=== PATIENT | male | born 1950 | race Caucasian/White ===

== ENCOUNTER 2019-08-23 02:23 | Emergency (ER) | payer MEDICARE, MEDICAID ==
[~2019-08-23] VITALS: Ht 175.3 cm; Wt 57.7 kg
[~2019-08-23 02:23] MED LIST: ASPI-1071 PO; ATI0.5T PO; BUSP5TAB26 PO; CARB-13 PO; DIGO250T4 PO; DOCU100C40 PO; FLO0.4C PO; FOLI1TAB16 PO; GABA100C PO; GABA400C PO; HYDR-3972 PO; LIDO700A5 TP; MELA3TAB64 PO; METF-950 PO; MIRT-92 PO; MULT-1179 PO; PANT-47 PO; QUET25TA PO; THI100T PO
--- NOTE | 2019-08-23 02:43 | NUR ---
blood glucose 63, juice and sandwich provided.
[2019-08-23 09:56] VITALS: BP 150/98
== END 2019-08-23 09:59 | disposition home or self-care (01) ==
LOC: ER 02:24
DX: S06.0X0A Concussion without loss of consciousness, initial encounter (principal); S00.83XA Contusion of other part of head, initial encounter; G20 Parkinson's disease; I48.91 Unspecified atrial fibrillation; I10 Essential (primary) hypertension; J44.9 Chronic obstructive pulmonary disease, unspecified; K21.9 Gastro-esophageal reflux disease without esophagitis; E11.9 Type 2 diabetes mellitus without complications; F32.9 Major depressive disorder, single episode, unspecified; Z90.49 Acquired absence of other specified parts of digestive tract; Z98.890 Other specified postprocedural states; Z60.2 Problems related to living alone; Z79.82 Long term (current) use of aspirin; Z79.899 Other long term (current) drug therapy; W18.39XA Other fall on same level, initial encounter; Y93.89 Activity, other specified; Y92.003 Bedroom of unspecified non-institutional (private) residence as the place of occurrence of the external cause; Y99.8 Other external cause status
CPT/HCPCS: 70470; 70486; 72125; 82948; 93005; 99285

== ENCOUNTER 2019-10-04 15:57 | Emergency (ER) | payer MEDICARE, MEDICAID ==
[~2019-10-04] VITALS: Ht 175.3 cm; Wt 55.0 kg
[~2019-10-04 15:57] MED LIST changes: +MELA3TAB39 PO; -MELA3TAB64 PO
[2019-10-04 17:28] LABS: CLARITY,URINE CLEAR (Clear); COLOR,URINE YELLOW (Yellow); GLUCOSE, URINE NEGATIVE (Neg); KETONES,URINE NEGATIVE (Neg); LEUKOCYTE ESTERASE ,URINE NEGATIVE (Neg); NITRITES, URINE NEGATIVE (Neg); OCCULT BLOOD,URINE NEGATIVE (Neg); PH,URINE 5.5 (4.8-8.0); PROTEIN,URINE NEGATIVE (Neg); UROBILINOGEN,URINE 0.2 E.U/dL (0.2-1.0)
[2019-10-04 17:35] LABS: UA COLLECTION TYPE URINAL
[2019-10-04 18:25] LABS: BASOPHILS % (AUTO) 0.4 % (0-1); EOSINOPHILS # (AUTO) 0.2 X10'3 (0-0.9); EOSINOPHILS % (AUTO) 3.1 % (0-6); HEMATOCRIT 46.8 % (42.0-52.0); HEMOGLOBIN 15.4 g/dl (14.0-17.9); LYMPHOCYTES # (AUTO) 2.4 X10'3 (1.1-4.8); LYMPHOCYTES % (AUTO) 35.9 % (21-51); MEAN CORPUSCULAR HEMOGLOBIN 29.2 PG (27.0-31.0); MEAN CORPUSCULAR HGB CONC 32.8 g/dL (33.0-36.5); MEAN PLATELET VOLUME 8.8 FL (7.4-10.4); MONOCYTES # (AUTO) 0.6 X10'3 (0-0.9); MONOCYTES % (AUTO) 8.1 % (2-12); NEUTROPHILS # (AUTO) 3.6 X10'3 (1.8-7.7); NEUTROPHILS % (AUTO) 52.5 % (42-75); PLATELET COUNT 237 X10'3 (140-440); RED BLOOD COUNT 5.25 X10'6 (4.70-6.10); RED CELL DISTRIBUTION WIDTH 14.4 % (11.5-14.5); WHITE BLOOD COUNT 6.8 X10'3 (4.5-11.0)
[2019-10-04 18:31] LABS: ALANINE AMINOTRANSFERASE 26 U/L (12-78); ALBUMIN/GLOBULIN RATIO 0.9 (1.1-1.5); ALKALINE PHOSPHATASE 119 IU/L (46-116); ANION GAP 5 (8-16); ASPARTATE AMINO TRANSFERASE 31 U/L (10-37); BILIRUBIN,TOTAL 0.6 MG/DL (0.1-1.0); BLOOD UREA NITROGEN 31 MG/DL (7-18); BUN/CREATININE RATIO 27.7 (5.4-32.0); CALCIUM 10.3 MG/DL (8.5-10.1); CHLORIDE 102 MMOL/L (99-107); CREATININE 1.12 MG/DL (0.60-1.10); GLUCOSE 110 MG/DL (70-104); POTASSIUM 4.1 MMOL/L (3.5-5.1); SODIUM 143 MMOL/L (135-145); TOTAL PROTEIN 8.4 G/DL (6.4-8.2); eGFR 65 ML/MIN
--- NOTE | 2019-10-04 19:29 | NUR ---
SPOKE WITH CANDIS, CAREGIVER/[employer], STATING HE WAS UNDER THE IMPRESSION THAT THE PT WAS GOING TO BE SENT TO BEHAVIORAL HEALTH FLOOR "ISABEL, THE NEUROLOGIST, SET EVERYTHING UP". EXPLAINED TO CANDIS THAT THE PT ONLY TOLD US OF LEG WOUND AND THAT I WOULD TALK TO RICH JONES ABOUT POSSIBLE ADMISSION TO BEHAVIORAL HEALTH AND RICH WOULD CALL HIM.
--- NOTE | 2019-10-04 19:47 | NUR ---
CALLED BEHAVIORAL HEALTH, NO INFORMATION OR ADMISSION INFORMATION ON THIS PT WAS EVER SENT TO THEM
[2019-10-04 20:19] LABS: ETHANOL < 0.010 GM/DL (0.0-0.010)
[2019-10-04 20:38] LABS: URINE AMPHETAMINE SCREEN NEGATIVE (Neg); URINE BARBITUATE SCREEN NEGATIVE (Neg); URINE BENZODIAZEPINES SCREEN NEGATIVE (Neg); URINE CANNABINOID SCREEN NEGATIVE (Neg); URINE COCAINE SCREEN NEGATIVE (Neg); URINE METHADONE SCREEN NEGATIVE (Neg); URINE OPIATE SCREEN NEGATIVE (Neg); URINE PHENCYCLIDINE SCREEN NEGATIVE (Neg)
--- NOTE | 2019-10-04 21:16 | NUR ---
PT CAREGIVER STATES "I TOOK MY NIGHTTIME MEDS AND CAN'T DRIVE NOW". TOLD CAREGIVER WE CAN SEND PT IN TAXI
[2019-10-04 21:29] VITALS: BP 109/73
== END 2019-10-04 22:55 | disposition home or self-care (01) ==
LOC: ER 15:58
DX: S81.801A Unspecified open wound, right lower leg, initial encounter (principal); R60.0 Localized edema; R44.3 Hallucinations, unspecified; G20 Parkinson's disease; I48.91 Unspecified atrial fibrillation; I10 Essential (primary) hypertension; J44.9 Chronic obstructive pulmonary disease, unspecified; K21.9 Gastro-esophageal reflux disease without esophagitis; E11.9 Type 2 diabetes mellitus without complications; F32.9 Major depressive disorder, single episode, unspecified; Z90.49 Acquired absence of other specified parts of digestive tract; Z60.2 Problems related to living alone; Z79.82 Long term (current) use of aspirin; Z79.01 Long term (current) use of anticoagulants; Z79.899 Other long term (current) drug therapy; X58.XXXA Exposure to other specified factors, initial encounter; Y93.89 Activity, other specified; Y92.89 Other specified places as the place of occurrence of the external cause; Y99.8 Other external cause status
CPT/HCPCS: 36415; 70450; 80053; 80305; 80320; 81003; 85025; 93971; 99285

== ENCOUNTER 2019-10-20 17:15 | Inpatient (IN) | payer MEDICARE, MEDICAID ==
[~2019-10-20] VITALS: Ht 175.3 cm; Wt 53.3 kg
[2019-10-20 18:18] LABS: BASOPHILS % (AUTO) 0.2 % (0-1); EOSINOPHILS % (AUTO) 0.2 % (0-6); HEMATOCRIT 38.2 % (42.0-52.0); HEMOGLOBIN 12.6 g/dl (14.0-17.9); LYMPHOCYTES # (AUTO) 0.9 X10'3 (1.1-4.8); LYMPHOCYTES % (AUTO) 13.3 % (21-51); MEAN CORPUSCULAR HEMOGLOBIN 29.2 PG (27.0-31.0); MEAN CORPUSCULAR HGB CONC 32.9 g/dL (33.0-36.5); MEAN CORPUSCULAR VOLUME 88.9 FL (78-98); MEAN PLATELET VOLUME 8.7 FL (7.4-10.4); MONOCYTES # (AUTO) 0.7 X10'3 (0-0.9); MONOCYTES % (AUTO) 10.5 % (2-12); NEUTROPHILS # (AUTO) 5.4 X10'3 (1.8-7.7); NEUTROPHILS % (AUTO) 75.8 % (42-75); PLATELET COUNT 177 X10'3 (140-440); RED CELL DISTRIBUTION WIDTH 14.4 % (11.5-14.5); WHITE BLOOD COUNT 7.1 X10'3 (4.5-11.0)
[2019-10-20 18:44] LABS: ALANINE AMINOTRANSFERASE 54 U/L (12-78); ALBUMIN 3.3 G/DL (3.4-5.0); ALBUMIN/GLOBULIN RATIO 0.9 (1.1-1.5); ALKALINE PHOSPHATASE 92 IU/L (46-116); ANION GAP 10 (8-16); ASPARTATE AMINO TRANSFERASE 59 U/L (10-37); BILIRUBIN,TOTAL 1.5 MG/DL (0.1-1.0); BLOOD UREA NITROGEN 15 MG/DL (7-18); BUN/CREATININE RATIO 18.5 (5.4-32.0); CALCIUM 9.2 MG/DL (8.5-10.1); CHLORIDE 108 MMOL/L (99-107); CREATINE KINASE 902 U/L (39-308); CREATININE 0.81 MG/DL (0.60-1.10); GLUCOSE 119 MG/DL (70-104); POTASSIUM 3.1 MMOL/L (3.5-5.1); SODIUM 146 MMOL/L (135-145); TOTAL CARBON DIOXIDE 27.6 MMOL/L (24-32); TOTAL PROTEIN 6.9 G/DL (6.4-8.2); eGFR > 90 ML/MIN
[2019-10-20] MEDS ORDERED: normal saline 1000ML IV soln IVB ONE (19:15)
[2019-10-20] MEDS ORDERED: potassium Cl 20 mEq SR tablet PO STA (19:15)
[2019-10-20] MEDS ORDERED: CARB1TAB23 PO (19:22)
[2019-10-20] MEDS ORDERED: BUSP10TA11 PO (19:22)
[2019-10-20] MEDS ORDERED: BACL-11 PO (19:22)
[2019-10-20] MEDS ORDERED: FURO-149 PO (19:22)
[2019-10-20] MEDS ORDERED: QUET-1 PO (19:22)
[2019-10-20] MEDS ORDERED: TRAM50TA2 PO (19:22)
[2019-10-20] MEDS ORDERED: AMA100C PO (19:22)
[2019-10-20] MEDS ORDERED: DIGO125T PO (19:22)
[2019-10-20] MEDS ORDERED: PREG100C PO (19:22)
[2019-10-20] MEDS ORDERED: RISP0.5T74 PO (19:22)
--- NOTE | 2019-10-20 19:22 | NUR ---
COMPLETED MED RECONCILLIATION TO [facility] WITH EXTERNAL MED REC. PT ABLE TO HELP MINIMALLY-UNABLE TO GIVE EXACT DOSAGE/FREQUENCIES FOR MULTIPLE MEDS BUT CONFIRMED EXTERNAL MED REC AMOUNTS
[2019-10-20 19:35] LABS: CLARITY,URINE CLEAR (Clear); COLOR,URINE YELLOW (Yellow); GLUCOSE, URINE NEGATIVE (Neg); KETONES,URINE >=80 mg/dl (Neg); LEUKOCYTE ESTERASE ,URINE NEGATIVE (Neg); NITRITES, URINE NEGATIVE (Neg); OCCULT BLOOD,URINE NEGATIVE (Neg); PROTEIN,URINE TRACE mg/dl (Neg)
[2019-10-20 19:36] LABS: UA COLLECTION TYPE CLN CATCH MIDSTREAM
[2019-10-20 19:46] LABS: BACTERIA,URINE FEW /HPF (Neg); RBC,URINE 0-2 /HPF (0-2); SQUAMOUS EPITHELIAL CELL,UR FEW /LPF (FEW); WBC,URINE NONE SEEN /HPF (0-4)
[2019-10-20 20:19] LABS: TROPONIN I < 0.04 NG/ML (0.0-0.05)
[2019-10-20] MEDS: normal saline 1000ml 1,000 ML IV SCH (20:58)
[2019-10-20] MEDS ORDERED: ondansetron/PF 4mg/2ml inj IV PRN (21:00)
[2019-10-20] MEDS ORDERED: MESSAGE TO PHARMACY PO ONE (21:00)
[2019-10-20] MEDS ORDERED: glucagon, human recombinant 1mg kit SUBCUT PRN (21:00)
[2019-10-20] MEDS ORDERED: docusate sod 100mg capsule PO PRN (21:00)
[2019-10-20] MEDS ORDERED: dextrose 50%-water 50ml dispensing syringe IV PRN ×2 (21:00)
[2019-10-20] MEDS ORDERED: potassium Cl 20 mEq SR tablet PO PRN (21:00)
[2019-10-20] MEDS ORDERED: insulin Lispro (HumaLOG) vial - multi-dose SQ SCH (21:00)
[2019-10-20] MEDS ORDERED: potassium CL 10mEq/100ml bag 100 ML IV PRN ×2 (21:00)
[2019-10-20] MEDS ORDERED: magnesium 4gm in 100ml NS 100 ML IV PRN (21:00)
[2019-10-20] MEDS ORDERED: dextrose ORAL solution 15 GM/59 ML bottle PO PRN (21:00)
[2019-10-20] MEDS ORDERED: acetaminophen 325mg tablet PO PRN (21:00)
[2019-10-20] MEDS ORDERED: mag hydrox/Alum hydrox/simeth 30ml oral suspension PO PRN (21:00)
[2019-10-20] MEDS: insulin glargine (Lantus) pen - multi-dose SQ SCH (21:00)
[2019-10-20] MEDS ORDERED: magnesium 2GM in 50ml NS 50 ML IV PRN (21:00)
[2019-10-20] MEDS: tamsulosin 0.4mg capsule PO SCH (22:18)
[2019-10-20] MEDS: carbidoba-levodopa 25-100mg tablet PO SCH (22:20)
[2019-10-20 22:30] VITALS: BP 132/65
[2019-10-20] MEDS: baclofen 10mg tablet PO SCH (23:45)
[2019-10-21] VITALS (13 sets, daily range): BP systolic 97–142; BP diastolic 49–96
[2019-10-21] MEDS: heparin, porcine 5000 units/ml vial SQ SCH ×3 (00:41→16:18)
[2019-10-21 05:51] LABS: BASOPHILS % (AUTO) 0.3 % (0-1); EOSINOPHILS % (AUTO) 0.4 % (0-6); HEMATOCRIT 38.2 % (42.0-52.0); HEMOGLOBIN 12.5 g/dl (14.0-17.9); LYMPHOCYTES # (AUTO) 1.3 X10'3 (1.1-4.8); LYMPHOCYTES % (AUTO) 15.8 % (21-51); MEAN CORPUSCULAR HEMOGLOBIN 29.2 PG (27.0-31.0); MEAN CORPUSCULAR HGB CONC 32.7 g/dL (33.0-36.5); MEAN CORPUSCULAR VOLUME 89.3 FL (78-98); MEAN PLATELET VOLUME 9.2 FL (7.4-10.4); MONOCYTES # (AUTO) 0.8 X10'3 (0-0.9); MONOCYTES % (AUTO) 9.5 % (2-12); NEUTROPHILS # (AUTO) 6.2 X10'3 (1.8-7.7); PLATELET COUNT 171 X10'3 (140-440); RED BLOOD COUNT 4.28 X10'6 (4.70-6.10); RED CELL DISTRIBUTION WIDTH 14.5 % (11.5-14.5); WHITE BLOOD COUNT 8.4 X10'3 (4.5-11.0)
--- NOTE | 2019-10-21 06:10 | NUR ---
Patient in room YUNG 358. I have received report from ARCHANA BURNS and had the opportunity to ask questions and assume patient care.
[2019-10-21 06:42] LABS: ALANINE AMINOTRANSFERASE 13 U/L (12-78); ALBUMIN 3.1 G/DL (3.4-5.0); ALBUMIN/GLOBULIN RATIO 0.9 (1.1-1.5); ALKALINE PHOSPHATASE 89 IU/L (46-116); ANION GAP 15 (8-16); ASPARTATE AMINO TRANSFERASE 54 U/L (10-37); BILIRUBIN,TOTAL 1.6 MG/DL (0.1-1.0); BLOOD UREA NITROGEN 12 MG/DL (7-18); BUN/CREATININE RATIO 17.4 (5.4-32.0); CHLORIDE 111 MMOL/L (99-107); CREATININE 0.69 MG/DL (0.60-1.10); GLUCOSE 73 MG/DL (70-104); MAGNESIUM 1.8 MG/DL (1.5-2.4); POTASSIUM 3.5 MMOL/L (3.5-5.1); SODIUM 147 MMOL/L (135-145); TOTAL CARBON DIOXIDE 21.1 MMOL/L (24-32); TOTAL PROTEIN 6.6 G/DL (6.4-8.2); eGFR > 90 ML/MIN
[2019-10-21] MEDS: normal saline 1000ml 1,000 ML IV SCH ×2 (06:58→12:06)
[2019-10-21] MEDS: dextrose ORAL solution 15 GM/59 ML bottle PO PRN (07:07)
--- NOTE | 2019-10-21 07:25 | NUR ---
BLOOD GLUCOSE 69, PER PROTOCOL GAVE GLUCOSE SHOT, BLOOD SUGAR NOW 74. DR LAMAR AWAITING CALL BACK
[2019-10-21] MEDS ORDERED: metFORMIN 500mg tablet PO SCH (07:30)
[2019-10-21] MEDS: pantoprazole 40mg Tablet.DR PO SCH (07:49)
[2019-10-21] MEDS: aspirin 81mg tablet.DR PO SCH (07:50)
[2019-10-21] MEDS: busPIRone 5mg tablet PO SCH ×2 (07:50→20:19)
[2019-10-21] MEDS: folic acid 1mg tablet PO SCH (07:50)
[2019-10-21] MEDS: multivitamins, therapeutics tablet PO SCH (07:53)
[2019-10-21] MEDS: baclofen 10mg tablet PO SCH ×3 (07:53→23:59)
[2019-10-21] MEDS: quetiapine 100mg tablet PO SCH (07:53)
[2019-10-21] MEDS: furosemide 40mg tablet PO SCH ×2 (07:53→20:19)
[2019-10-21] MEDS: carbidoba-levodopa 25-100mg tablet PO SCH ×3 (07:53→21:00)
[2019-10-21] MEDS: digoxin 125mcg (0.125mg) tablet PO SCH (07:53)
[2019-10-21] MEDS: K and/or MAG REPLACEMENT MC SCH ×2 (08:00→20:00)
[2019-10-21] MEDS: risperiDONE 0.5mg tablet PO SCH ×2 (11:03→20:23)
[2019-10-21] MEDS: amantadine 100 MG capsule PO SCH ×2 (11:04→20:21)
--- NOTE | 2019-10-21 12:55 | NUR ---
Dr. Sheffield paged regarding pt in [place] sustaining HR in 140s per manager telecom. Awaiting call back.
[2019-10-21] MEDS ORDERED: diltiazem 5mg/ml 5ml inj. IV ONE (13:00)
[2019-10-21] MEDS: lactose-reduced food (Ensure Enlive) - 237ml bottle PO SCH ×2 (13:00→18:00)
--- NOTE | 2019-10-21 13:58 | NUR ---
Patient in room YUNG 358. I have received report from Enedelia MAGAÑA and had the opportunity to ask questions and assume patient care.
--- NOTE | 2019-10-21 14:15 | NUR ---
Patient confused, oriented to unit, vs 102/59, HR 98,100% on RA, RR 13, temp 97.9, delivered by Enedelia MAGAÑA by dominick, 2 person assist, NS @100, to start cardizem gtt.
--- NOTE | 2019-10-21 14:25 | NUR ---
GAVE REPORT TO ARCHANA CALLAWAY ON PCU AND TRANSFERRED PATIENT TO 3018 B, ALL BELONGINGS SENT WITH PATIENT INCLUDING iPHONE, GLASSES, CLOTHES AND MEDS.
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
[2019-10-21] MEDS: diltiazem-NS 100mg/100ml 100 ML IV SCH (15:01)
[2019-10-21] MEDS: cephalexin 500mg capsule PO SCH ×2 (16:12→23:59)
[2019-10-21] MEDS: dextrose 5%-1/4 normal saline 1,000 ML IV SCH (16:12)
[2019-10-21] MEDS: pregabalin 25mg capsule PO SCH ×2 (16:13→23:59)
--- NOTE | 2019-10-21 17:06 | NUR ---
Dr. Sheffield notified Dionisio Galvan. 4580B. Patient is impulsive and pulling at IV, and keeps pulling off tele leads. Can I get a sitter order? TY. Jason [phone]
--- NOTE | 2019-10-21 18:11 | NUR ---
Problems reprioritized. Patient report given, questions answered & plan of care reviewed with Kyra MAGAÑA. Addendum: 10/21/19 at 1814 by Jason Guan RN Was with Philipp MAGAÑA not Kyra
--- NOTE | 2019-10-21 18:11 | NUR ---
Patient in room PCU 3018B. I have received report from ARCHANA Gomez and had the opportunity to ask questions and assume patient care. Patient denies CP, SOB, n/v, and rated pain 0/10. Patient has a sitter in place
[2019-10-21] MEDS: tamsulosin 0.4mg capsule PO SCH (20:19)
[2019-10-21] MEDS: sulfamethoxazole/trimethoprim DS (800/160mg) tablet PO SCH (20:19)
[2019-10-21] MEDS: insulin glargine (Lantus) pen - multi-dose SQ SCH (21:00)
[2019-10-22] VITALS (11 sets, daily range): BP systolic 61–122; BP diastolic 33–62
[2019-10-22] MEDS: traMADol 50MG tablet PO PRN ×2 (00:44→07:14)
[2019-10-22] MEDS: dextrose 5%-1/4 normal saline 1,000 ML IV SCH (03:00)
[2019-10-22 06:09] LABS: BASOPHILS % (AUTO) 0.6 % (0-1); EOSINOPHILS # (AUTO) 0.2 X10'3 (0-0.9); EOSINOPHILS % (AUTO) 3.2 % (0-6); HEMATOCRIT 37.1 % (42.0-52.0); HEMOGLOBIN 12.5 g/dl (14.0-17.9); LYMPHOCYTES # (AUTO) 1.9 X10'3 (1.1-4.8); LYMPHOCYTES % (AUTO) 27.4 % (21-51); MEAN CORPUSCULAR HEMOGLOBIN 29.9 PG (27.0-31.0); MEAN CORPUSCULAR HGB CONC 33.8 g/dL (33.0-36.5); MEAN CORPUSCULAR VOLUME 88.5 FL (78-98); MEAN PLATELET VOLUME 9.1 FL (7.4-10.4); MONOCYTES # (AUTO) 0.6 X10'3 (0-0.9); NEUTROPHILS # (AUTO) 4.1 X10'3 (1.8-7.7); NEUTROPHILS % (AUTO) 59.8 % (42-75); PLATELET COUNT 180 X10'3 (140-440); RED BLOOD COUNT 4.19 X10'6 (4.70-6.10); RED CELL DISTRIBUTION WIDTH 14.5 % (11.5-14.5); WHITE BLOOD COUNT 6.8 X10'3 (4.5-11.0)
[2019-10-22 06:11] LABS: ALANINE AMINOTRANSFERASE 20 U/L (12-78); ALBUMIN 2.7 G/DL (3.4-5.0); ALBUMIN/GLOBULIN RATIO 0.8 (1.1-1.5); ALKALINE PHOSPHATASE 80 IU/L (46-116); ANION GAP 8 (8-16); ASPARTATE AMINO TRANSFERASE 34 U/L (10-37); BILIRUBIN,TOTAL 1.1 MG/DL (0.1-1.0); BLOOD UREA NITROGEN 10 MG/DL (7-18); BUN/CREATININE RATIO 14.7 (5.4-32.0); CHLORIDE 107 MMOL/L (99-107); CREATININE 0.68 MG/DL (0.60-1.10); GLUCOSE 114 MG/DL (70-104); MAGNESIUM 1.4 MG/DL (1.5-2.4); SODIUM 143 MMOL/L (135-145); TOTAL CARBON DIOXIDE 28.3 MMOL/L (24-32); eGFR > 90 ML/MIN
--- NOTE | 2019-10-22 06:12 | NUR ---
Patient in room PCU 3018. I have received report from Philipp MAGAÑA and had the opportunity to ask questions and assume patient care.
--- NOTE | 2019-10-22 06:14 | NUR ---
Problems reprioritized. Patient report given, questions answered & plan of care reviewed with ARCHANA Johnson. Patient stable at shift change
[2019-10-22 06:16] LABS: POTASSIUM 2.6 MMOL/L (3.5-5.1)
--- NOTE | 2019-10-22 06:27 | NUR ---
Sent a page to Dr Kevin sanchez PAGER ID: [phone] MESSAGE: Elizabeth MAGAÑA [phone] 3018B NEGRA Campos K 2.6, will replace per protocol. thanks!
[2019-10-22] MEDS: diltiazem-NS 100mg/100ml 100 ML IV SCH (06:30)
[2019-10-22] MEDS: potassium Cl 20 mEq SR tablet PO PRN ×3 (07:11→15:41)
[2019-10-22] MEDS: carbidoba-levodopa 25-100mg tablet PO SCH ×3 (07:11→21:26)
[2019-10-22] MEDS: amantadine 100 MG capsule PO SCH ×2 (07:11→19:29)
[2019-10-22] MEDS: baclofen 10mg tablet PO SCH ×2 (07:12→15:41)
[2019-10-22] MEDS: risperiDONE 0.5mg tablet PO SCH ×2 (07:12→20:31)
[2019-10-22] MEDS: cephalexin 500mg capsule PO SCH ×2 (07:12→15:42)
[2019-10-22] MEDS: busPIRone 5mg tablet PO SCH ×2 (07:12→19:29)
[2019-10-22] MEDS: quetiapine 100mg tablet PO SCH (07:12)
[2019-10-22] MEDS: sulfamethoxazole/trimethoprim DS (800/160mg) tablet PO SCH ×2 (07:12→19:29)
[2019-10-22] MEDS: pantoprazole 40mg Tablet.DR PO SCH (07:12)
[2019-10-22] MEDS: multivitamins, therapeutics tablet PO SCH (07:13)
[2019-10-22] MEDS: aspirin 81mg tablet.DR PO SCH (07:13)
[2019-10-22] MEDS: folic acid 1mg tablet PO SCH (07:13)
[2019-10-22] MEDS: furosemide 40mg tablet PO SCH ×2 (07:13→20:00)
[2019-10-22] MEDS: digoxin 125mcg (0.125mg) tablet PO SCH (07:13)
[2019-10-22] MEDS: pregabalin 25mg capsule PO SCH ×2 (07:14→15:41)
[2019-10-22] MEDS: heparin, porcine 5000 units/ml vial SQ SCH ×3 (07:15→15:41)
[2019-10-22] MEDS: K and/or MAG REPLACEMENT MC SCH ×2 (07:26→20:00)
[2019-10-22] MEDS: lactose-reduced food (Ensure Enlive) - 237ml bottle PO SCH ×4 (07:26→19:28)
--- NOTE | 2019-10-22 08:54 | NUR ---
Sent a page to Dr Yohannes sanchez PAGER ID: [phone] MESSAGE: Elizabeth MAGAÑA [phone] [id number] Loretta Galvan, SBP low 80s/high 70s, manual 86/40, HR 70s, Trendelenburged with small BP cuff on, please advise
--- NOTE | 2019-10-22 09:00 | NUR ---
Sent another page to Dr Sheffield PAGER ID: [phone] MESSAGE: Elizabeth MAGAÑA [phone] 3018B M Galvan, SBP 80s, on Cardizem gtt at 5mg/hr, do you want me to stop medication or decrease rate? please advise, thanks
--- NOTE | 2019-10-22 09:20 | NUR ---
Sent another page to Dr Sheffield PAGER ID: [phone] MESSAGE: Elizabeth MAGAÑA [phone] [id number], please call me, SBP 85-90, in Trendelenburg, do you want me to hold the Cardizem?
[2019-10-22] MEDS ORDERED: normal saline 500ml IV soln 1,000 ML IV ONE (09:25)
--- NOTE | 2019-10-22 09:30 | NUR ---
Spoke with Dr Sheffield via telephone, received orders to stop Cardizem gtt and to give a 500cc fluid bolus, will continue to monitor closely.
[2019-10-22] MEDS: normal saline 1000ml 1,000 ML IV SCH ×2 (11:34→22:55)
--- NOTE | 2019-10-22 12:51 | NUR ---
Sent a page to Dr Sheffield PAGER ID: [phone] MESSAGE: Elizabeth [id number] 3018B M Galvan, manual blood pressure 88/40, giving another 250 bolus per protocol, please advise, thanks Addendum: 10/22/19 at 1252 by Jen Cabral RN Spoke with Dr Sheffield via telephone, received orders to give a 1 Liter bolus instead of 250 ml. Will continue to monitor closely.
[2019-10-22] MEDS ORDERED: normal saline 1000ml 1,000 ML IV ONE (13:00)
--- NOTE | 2019-10-22 14:23 | NUR ---
Patient positive for MRSA in nares, gave patient education handout on MRSA, will continue to educate and closely monitor.
--- NOTE | 2019-10-22 14:30 | NUR ---
Sent Dr Sheffield a page regarding blood pressure and (+) MRSA in nares. Will continue to monitor the patient closely. PAGER ID: [phone] MESSAGE: Elizabeth MAGAÑA [phone] NEGRA Campos BP 100/60 after fluid bolus, pt also (+) for MRSA in nares, thank you!
--- NOTE | 2019-10-22 14:50 | NUR ---
F/u: Pt noted to have severe muscle weakness, severe muscle/fat wasting, and 0% PO since admit including ensure enlive ONS even w/ encouragement per RN. Pt hx receiving one meal/day from [facility] worker prior to admit. At this time pt meets severe malnutrition criteria; MD notified. Current wt is pt stated and no accurate wt hx as well as pt ALOC. RN reports pt has few teeth, gags on water, and would benefit from SOLAR SALES REPRESENTATIVE BSS. RD recommended SOLAR SALES REPRESENTATIVE BSS; MD notified. Pt not appropriate for written/verbal malnutrition ed at this given ALOC and possible Parkinson's dementia per MD note. Will continue to monitor for PO diet tolerance and advancement. Recommendations: 1) advance diet as medically indicated to regular; pending SOLAR SALES REPRESENTATIVE BSS 2) Ensure Enlive TID per MD 3) Encourage PO intake; monitor need for adaptive-gaspar/assistance with meals 4) routine bowel care PRN 5) Scaled wt for accuracy Addendum: 10/22/19 at [address] Amended: Links added.
--- NOTE | 2019-10-22 15:36 | NUR ---
Sent a page to Dr Yohannes sanchez PAGER ID: [phone] MESSAGE: Elizabeth MAGAÑA [phone] 3018B Loretta Galvan, are you aware that he is on SQ heparin 5,000 units TID, do you want me to give this? Plt 180, thanks! Addendum: 10/22/19 at 1559 by Jen Cabral RN Spoke to Dr Sheffield via telephone, he said 3 doses is fine but it is okay to change the SQ heparin to BID. Will continue to monitor closely.
--- NOTE | 2019-10-22 16:54 | NUR ---
Sent a page to Dr Yohannes sanchez PAGER ID: [phone] MESSAGE: Elizabeth MAGAÑA [phone] 3018B M Cole, no order for a sitter on this patient, can I put one in, impulsive and still confused. thanks!
--- NOTE | 2019-10-22 18:40 | NUR ---
Problems reprioritized. Patient report given, questions answered & plan of care reviewed with Lizandro.
--- NOTE | 2019-10-22 19:01 | NUR ---
Patient in room PCU 3018b. I have received report from ARCHANA Johnson and had the opportunity to ask questions and assume patient care. Patient asleep for bedside report but was easily woken. NS infusing at 50- will change to 125 mL/hr per provider order. On room air and oxygen saturation at 96%. Stable at this time.
[2019-10-22] MEDS: lactobacillus rhamnosus 10,000 MMU CELLS/CAPSULE PO SCH (19:29)
[2019-10-22] MEDS: mineral oil/petrolatum, white cream 113gm jar TP SCH (20:32)
[2019-10-22] MEDS: insulin glargine (Lantus) pen - multi-dose SQ SCH (21:00)
[2019-10-22] MEDS: tamsulosin 0.4mg capsule PO SCH (21:26)
[2019-10-23] VITALS (8 sets, daily range): BP systolic 90–115; BP diastolic 49–78
[2019-10-23] MEDS: cephalexin 500mg capsule PO SCH ×3 (00:38→16:15)
[2019-10-23] MEDS: baclofen 10mg tablet PO SCH ×3 (00:40→16:15)
[2019-10-23] MEDS: pregabalin 25mg capsule PO SCH ×4 (00:40→16:27)
[2019-10-23] MEDS: traMADol 50MG tablet PO PRN ×3 (01:09→20:06)
[2019-10-23] MEDS: normal saline 1000ml 1,000 ML IV SCH ×4 (01:13→21:20)
[2019-10-23 05:21] LABS: BASOPHILS % (AUTO) 0.3 % (0-1); EOSINOPHILS # (AUTO) 0.2 X10'3 (0-0.9); EOSINOPHILS % (AUTO) 3.2 % (0-6); HEMATOCRIT 36.4 % (42.0-52.0); HEMOGLOBIN 11.9 g/dl (14.0-17.9); LYMPHOCYTES # (AUTO) 1.5 X10'3 (1.1-4.8); LYMPHOCYTES % (AUTO) 21.6 % (21-51); MEAN CORPUSCULAR HEMOGLOBIN 29.2 PG (27.0-31.0); MEAN CORPUSCULAR HGB CONC 32.7 g/dL (33.0-36.5); MEAN CORPUSCULAR VOLUME 89.3 FL (78-98); MEAN PLATELET VOLUME 8.9 FL (7.4-10.4); MONOCYTES # (AUTO) 0.6 X10'3 (0-0.9); MONOCYTES % (AUTO) 8.9 % (2-12); NEUTROPHILS # (AUTO) 4.7 X10'3 (1.8-7.7); PLATELET COUNT 167 X10'3 (140-440); RED BLOOD COUNT 4.07 X10'6 (4.70-6.10); RED CELL DISTRIBUTION WIDTH 14.9 % (11.5-14.5); WHITE BLOOD COUNT 7.1 X10'3 (4.5-11.0)
[2019-10-23 06:05] LABS: ALANINE AMINOTRANSFERASE 14 U/L (12-78); ALBUMIN 2.4 G/DL (3.4-5.0); ALBUMIN/GLOBULIN RATIO 0.7 (1.1-1.5); ALKALINE PHOSPHATASE 85 IU/L (46-116); ANION GAP 5 (8-16); ASPARTATE AMINO TRANSFERASE 24 U/L (10-37); BILIRUBIN,TOTAL 0.6 MG/DL (0.1-1.0); BLOOD UREA NITROGEN 9 MG/DL (7-18); BUN/CREATININE RATIO 13.4 (5.4-32.0); CALCIUM 8.1 MG/DL (8.5-10.1); CHLORIDE 109 MMOL/L (99-107); CREATININE 0.67 MG/DL (0.60-1.10); GLUCOSE 98 MG/DL (70-104); MAGNESIUM 2.1 MG/DL (1.5-2.4); POTASSIUM 4.2 MMOL/L (3.5-5.1); SODIUM 143 MMOL/L (135-145); TOTAL CARBON DIOXIDE 28.6 MMOL/L (24-32); TOTAL PROTEIN 5.7 G/DL (6.4-8.2); eGFR > 90 ML/MIN
--- NOTE | 2019-10-23 06:10 | NUR ---
Problems reprioritized. Patient report given, questions answered & plan of care reviewed with ARCHANA Johnson.
--- NOTE | 2019-10-23 06:12 | NUR ---
Patient in room PCU 3018. I have received report from Lizandro MAGAÑA and had the opportunity to ask questions and assume patient care.
[2019-10-23] MEDS: dextrose ORAL solution 15 GM/59 ML bottle PO PRN (07:06)
--- NOTE | 2019-10-23 07:30 | NUR ---
Performed nursing BSS with patient, no difficulties swallowing pills with water, will continue to monitor closely.
[2019-10-23] MEDS: heparin, porcine 5000 units/ml vial SQ SCH ×2 (07:33→20:05)
[2019-10-23] MEDS: aspirin 81mg tablet.DR PO SCH (07:34)
[2019-10-23] MEDS: amantadine 100 MG capsule PO SCH ×2 (07:34→20:07)
[2019-10-23] MEDS: lactobacillus rhamnosus 10,000 MMU CELLS/CAPSULE PO SCH ×2 (07:34→20:08)
[2019-10-23] MEDS: digoxin 125mcg (0.125mg) tablet PO SCH (07:35)
[2019-10-23] MEDS: multivitamins, therapeutics tablet PO SCH (07:36)
[2019-10-23] MEDS: carbidoba-levodopa 25-100mg tablet PO SCH ×3 (07:36→21:20)
[2019-10-23] MEDS: pantoprazole 40mg Tablet.DR PO SCH (07:36)
[2019-10-23] MEDS: risperiDONE 0.5mg tablet PO SCH ×2 (07:37→20:26)
[2019-10-23] MEDS: folic acid 1mg tablet PO SCH (07:37)
[2019-10-23] MEDS: busPIRone 5mg tablet PO SCH ×2 (07:37→20:05)
[2019-10-23] MEDS: quetiapine 100mg tablet PO SCH (07:37)
[2019-10-23] MEDS: furosemide 40mg tablet PO SCH (07:37)
[2019-10-23] MEDS: mineral oil/petrolatum, white cream 113gm jar TP SCH ×2 (07:40→20:09)
[2019-10-23] MEDS: sulfamethoxazole/trimethoprim DS (800/160mg) tablet PO SCH ×2 (07:40→20:07)
[2019-10-23] MEDS: K and/or MAG REPLACEMENT MC SCH ×2 (08:00→20:00)
--- NOTE | 2019-10-23 08:37 | NUR ---
Spoke to the patients home caregiver, Narciso MaeHeshamjanice, via telephone and updated him on the patients plan of care. States he would like to be contacted when discharge is imminent. His phone number is [phone]
--- NOTE | 2019-10-23 09:12 | NUR ---
Problems reprioritized. Patient report given, questions answered & plan of care reviewed with Sadia MAGAÑA.
--- NOTE | 2019-10-23 09:12 | NUR ---
Patient in room PCU 3018. I have received report from ARCHANA Johnson and had the opportunity to ask questions and assume patient care late in shift. Nurse is being flexed off due to overstaffing. All am meds were given and charting complete. Will assess patient,.
--- NOTE | 2019-10-23 11:41 | NUR ---
RECOMMEND: 1. Daily bathing with no rinse skin cleanser. 2. Cream/Lotion to be applied to skin after bathing. 3. Theresa care Q shift and prn soiling followed by with Barrier Cream. 4. Wound care to BLE, apply silvadene to xeroform, then apply to legs, then cover with kerlix. To be changed daily.
[2019-10-23] MEDS: lactose-reduced food (Ensure Enlive) - 237ml bottle PO SCH ×2 (13:57→18:00)
--- NOTE | 2019-10-23 15:41 | NUR ---
PAGER ID: [phone] MESSAGE: Dr. Sheffield-Patient Dionisio Galvan in rm 18B, hypotensive BP are 80/44 MAP of 54. Repeat BP manually and got 90/50 MAP of 63. Will continue to monitor, Any new orders? Thank you, Luz RN [phone] [facility]
[2019-10-23] MEDS ORDERED: normal saline 1000ml 1,000 ML IV ONE (15:45)
--- NOTE | 2019-10-23 15:45 | NUR ---
Orders regarding hypotension per Dr. Sheffield are to Give patient 1L bolus and chart I&Os and make sure to have strict I&Os on this patient.
--- NOTE | 2019-10-23 18:38 | NUR ---
Problems reprioritized. Patient report given, questions answered & plan of care reviewed with ARCHANA Méndez.
--- NOTE | 2019-10-23 18:44 | NUR ---
Patient in room PCU 3018b. I have received report from ARCHANA Alcala and had the opportunity to ask questions and assume patient care. Patient awake for bedside report. On room air, 125 mL/hr NS infusing per provider order. Stable at this time. Will continue to monitor closely.
[2019-10-23] MEDS: tamsulosin 0.4mg capsule PO SCH (20:25)
[2019-10-23] MEDS: insulin glargine (Lantus) pen - multi-dose SQ SCH (21:00)
[2019-10-24] VITALS (15 sets, daily range): BP systolic 89–134; BP diastolic 46–99
[2019-10-24] MEDS: cephalexin 500mg capsule PO SCH ×4 (00:33→23:16)
[2019-10-24] MEDS: pregabalin 25mg capsule PO SCH ×4 (00:33→23:15)
[2019-10-24] MEDS: baclofen 10mg tablet PO SCH ×4 (00:33→23:16)
[2019-10-24] MEDS: normal saline 1000ml 1,000 ML IV SCH ×2 (05:29→22:55)
[2019-10-24 05:49] LABS: ALANINE AMINOTRANSFERASE 7 U/L (12-78); ALBUMIN 2.4 G/DL (3.4-5.0); ALBUMIN/GLOBULIN RATIO 0.7 (1.1-1.5); ALKALINE PHOSPHATASE 80 IU/L (46-116); ANION GAP 5 (8-16); ASPARTATE AMINO TRANSFERASE 24 U/L (10-37); BILIRUBIN,TOTAL 0.5 MG/DL (0.1-1.0); BLOOD UREA NITROGEN 9 MG/DL (7-18); BUN/CREATININE RATIO 14.5 (5.4-32.0); CALCIUM 8.5 MG/DL (8.5-10.1); CHLORIDE 107 MMOL/L (99-107); CREATININE 0.62 MG/DL (0.60-1.10); GLUCOSE 97 MG/DL (70-104); MAGNESIUM 1.7 MG/DL (1.5-2.4); SODIUM 141 MMOL/L (135-145); TOTAL CARBON DIOXIDE 28.6 MMOL/L (24-32); TOTAL PROTEIN 5.8 G/DL (6.4-8.2); eGFR > 90 ML/MIN
[2019-10-24 06:12] LABS: BASOPHILS % (AUTO) 0.3 % (0-1); EOSINOPHILS # (AUTO) 0.3 X10'3 (0-0.9); HEMATOCRIT 35.4 % (42.0-52.0); HEMOGLOBIN 11.7 g/dl (14.0-17.9); LYMPHOCYTES # (AUTO) 1.5 X10'3 (1.1-4.8); LYMPHOCYTES % (AUTO) 23.7 % (21-51); MEAN CORPUSCULAR HEMOGLOBIN 29.6 PG (27.0-31.0); MEAN CORPUSCULAR HGB CONC 33.1 g/dL (33.0-36.5); MEAN CORPUSCULAR VOLUME 89.4 FL (78-98); MEAN PLATELET VOLUME 9.1 FL (7.4-10.4); MONOCYTES # (AUTO) 0.6 X10'3 (0-0.9); MONOCYTES % (AUTO) 9.1 % (2-12); NEUTROPHILS % (AUTO) 62.9 % (42-75); PLATELET COUNT 185 X10'3 (140-440); RED BLOOD COUNT 3.97 X10'6 (4.70-6.10); RED CELL DISTRIBUTION WIDTH 14.6 % (11.5-14.5); WHITE BLOOD COUNT 6.4 X10'3 (4.5-11.0)
--- NOTE | 2019-10-24 06:30 | NUR ---
Problems reprioritized. Patient report given, questions answered & plan of care reviewed with ARCHANA CHÁVEZ.
--- NOTE | 2019-10-24 06:38 | NUR ---
Problems reprioritized. Patient report given, questions answered & plan of care reviewed with ARCHANA CHÁVEZ and ARCHANA ASHBY.
--- NOTE | 2019-10-24 06:46 | NUR ---
Patient in room PCU 3018. I have received report from Cortez MAGAÑA and had the opportunity to ask questions and assume patient care.
[2019-10-24] MEDS: dextrose ORAL solution 15 GM/59 ML bottle PO PRN (07:09)
[2019-10-24] MEDS: heparin, porcine 5000 units/ml vial SQ SCH ×2 (07:39→20:00)
[2019-10-24] MEDS: amantadine 100 MG capsule PO SCH ×2 (07:39→19:43)
[2019-10-24] MEDS: pantoprazole 40mg Tablet.DR PO SCH (07:39)
[2019-10-24] MEDS: busPIRone 5mg tablet PO SCH ×2 (07:39→19:44)
[2019-10-24] MEDS: lactobacillus rhamnosus 10,000 MMU CELLS/CAPSULE PO SCH ×2 (07:39→19:44)
[2019-10-24] MEDS: multivitamins, therapeutics tablet PO SCH (07:40)
[2019-10-24] MEDS: sulfamethoxazole/trimethoprim DS (800/160mg) tablet PO SCH ×2 (07:40→19:45)
[2019-10-24] MEDS: folic acid 1mg tablet PO SCH (07:41)
[2019-10-24] MEDS: digoxin 125mcg (0.125mg) tablet PO SCH (07:41)
[2019-10-24] MEDS: quetiapine 100mg tablet PO SCH (07:42)
[2019-10-24] MEDS: carbidoba-levodopa 25-100mg tablet PO SCH ×3 (07:42→21:29)
[2019-10-24] MEDS: risperiDONE 0.5mg tablet PO SCH ×2 (07:42→19:44)
[2019-10-24] MEDS: aspirin 81mg tablet.DR PO SCH (07:42)
[2019-10-24] MEDS: docusate sod 100mg capsule PO PRN (07:47)
[2019-10-24] MEDS: mineral oil/petrolatum, white cream 113gm jar TP SCH ×2 (07:51→20:00)
--- NOTE | 2019-10-24 07:55 | NUR ---
Blood sugar 56, glucose gel aministered and increased to 85, pt. currently eating. Pt. is asymptomatic. Will continue to monitor closely.
--- NOTE | 2019-10-24 07:55 | NUR ---
PAGER ID: [phone] MESSAGE: 3018B Dionisio Galvan HR up into the 130's since ambulating with therapy, Patient currently eating, asymptomatic. PO dig administered now. Chani MAGAÑA [phone]
[2019-10-24] MEDS: K and/or MAG REPLACEMENT MC SCH ×2 (08:00→20:00)
[2019-10-24] MEDS: silver sulfadiazine cream 50gm TP SCH (08:00)
[2019-10-24] MEDS: lactose-reduced food (Ensure Enlive) - 237ml bottle PO SCH ×3 (08:00→18:00)
--- NOTE | 2019-10-24 08:56 | NUR ---
PAGER ID: [phone] MESSAGE: Pt 9229b Dionisio Galvan converted to afib rate 130-140 bp 113/82, jv hamm dc 10/21 due to too low bp. would you like to start po? Chani MAGAÑA ext [phone]
[2019-10-24] MEDS ORDERED: amiodarone 150mg/dext, iso-os 100 ML IV ONE (09:35)
--- NOTE | 2019-10-24 09:52 | NUR ---
PAGER ID: [phone] MESSAGE: [id number] Dionisio Galvan - manual BP 58 NEGRA Wilde 260
--- NOTE | 2019-10-24 10:17 | NUR ---
MD aware of HR trends since ambulation. Patient was resting comfortably with he converted back to a-fib with rate 130's. BP on the lower side but map remains >60. MD is aware; Amio drip started per MD order. Will continue to monitor any changes.
[2019-10-24] MEDS: amiodarone/D5 360MG/200ML BAG 200 ML IV SCH ×3 (10:28→21:43)
[2019-10-24] MEDS: apixaban 5mg tablet PO SCH ×2 (11:43→19:44)
--- NOTE | 2019-10-24 14:10 | NUR ---
Confirmed receipt of fax to CT. Venous/arterial ultrasound being completed at this time.
--- NOTE | 2019-10-24 15:16 | NUR ---
Patient converted back to sinus rhythm with a rate in the 70s. Blood pressure is now stable at 113/58. Patient is resting comfortably with no apparent distress and awaiting CT.
--- NOTE | 2019-10-24 17:43 | NUR ---
Called CT several times to inquire about the CT scheduled for today and if Dr. Sheffield was reached. No answer. notified.
--- NOTE | 2019-10-24 17:46 | NUR ---
PAGER ID: [phone] MESSAGE: CT not completed for pt 3018b Dionisio Galvan. CT was waiting for a call from you NEGRA. Chani Villagomez RN extension [phone]
--- NOTE | 2019-10-24 17:53 | NUR ---
Agree with Orientee Chani Khan charting.
--- NOTE | 2019-10-24 18:31 | NUR ---
Dr. Sheffield called back stating that he talked to CT earlier and is unsure why it hasn't happened yet. Noc nurse notified.
--- NOTE | 2019-10-24 18:32 | NUR ---
Problems reprioritized. Patient report given, questions answered & plan of care reviewed with Cortez MAGAÑA.
--- NOTE | 2019-10-24 18:41 | NUR ---
Patient in room PCU 3018b. I have received report from ARCHANA Davis and ARCHANA Wlide and had the opportunity to ask questions and assume patient care. Patient awake for bedside report, sitting up in bed, and eating dinner at this time. Amiodarone infusing at 17 mL/hr per provider order. NS infusing at 125 mL/hr per provider order. Sating well at 100% room air. Will continue to monitor closely. Per day RN's CT is not responding to pages/calls for CT of ABD, PELVIS, CHEST; Dr. Sheffield aware. Just called to CT and no answer. Will attempt to page and call again.
[2019-10-24] MEDS ORDERED: iohexol 350MG/ML 100ml bottle IV ONE (19:54)
--- NOTE | 2019-10-24 20:00 | NUR ---
NON-ADMIN HEPARIN. PO ELIQUIS ORDERED; PATIENT IS HIGH RISK FOR FALLS/ BLEEDING.
--- NOTE | 2019-10-24 20:24 | NUR ---
Patient down to CT with ARCHANA Orourke and nurse aide.
[2019-10-24] MEDS: insulin glargine (Lantus) pen - multi-dose SQ SCH (21:00)
[2019-10-24] MEDS: tamsulosin 0.4mg capsule PO SCH (21:28)
[2019-10-24] MEDS: traMADol 50MG tablet PO PRN (21:29)
[2019-10-25] VITALS (9 sets, daily range): BP systolic 92–139; BP diastolic 43–85
[2019-10-25] MEDS: amiodarone/D5 360MG/200ML BAG 200 ML IV SCH ×3 (04:31→17:00)
[2019-10-25 05:09] LABS: BASOPHILS % (AUTO) 0.6 % (0-1); EOSINOPHILS # (AUTO) 0.4 X10'3 (0-0.9); EOSINOPHILS % (AUTO) 6.5 % (0-6); HEMATOCRIT 33.3 % (42.0-52.0); HEMOGLOBIN 10.9 g/dl (14.0-17.9); LYMPHOCYTES # (AUTO) 1.7 X10'3 (1.1-4.8); LYMPHOCYTES % (AUTO) 30.6 % (21-51); MEAN CORPUSCULAR HEMOGLOBIN 29.2 PG (27.0-31.0); MEAN CORPUSCULAR HGB CONC 32.8 g/dL (33.0-36.5); MEAN CORPUSCULAR VOLUME 89.1 FL (78-98); MEAN PLATELET VOLUME 8.5 FL (7.4-10.4); MONOCYTES # (AUTO) 0.6 X10'3 (0-0.9); MONOCYTES % (AUTO) 10.8 % (2-12); NEUTROPHILS # (AUTO) 2.8 X10'3 (1.8-7.7); NEUTROPHILS % (AUTO) 51.5 % (42-75); PLATELET COUNT 187 X10'3 (140-440); RED BLOOD COUNT 3.73 X10'6 (4.70-6.10); RED CELL DISTRIBUTION WIDTH 14.9 % (11.5-14.5); WHITE BLOOD COUNT 5.5 X10'3 (4.5-11.0)
[2019-10-25 05:23] LABS: ALANINE AMINOTRANSFERASE 11 U/L (12-78); ALBUMIN 2.3 G/DL (3.4-5.0); ALBUMIN/GLOBULIN RATIO 0.7 (1.1-1.5); ALKALINE PHOSPHATASE 80 IU/L (46-116); ANION GAP 4 (8-16); ASPARTATE AMINO TRANSFERASE 18 U/L (10-37); BILIRUBIN,TOTAL 0.4 MG/DL (0.1-1.0); BLOOD UREA NITROGEN 11 MG/DL (7-18); BUN/CREATININE RATIO 16.7 (5.4-32.0); CALCIUM 8.4 MG/DL (8.5-10.1); CHLORIDE 108 MMOL/L (99-107); CREATININE 0.66 MG/DL (0.60-1.10); GLUCOSE 94 MG/DL (70-104); MAGNESIUM 1.6 MG/DL (1.5-2.4); POTASSIUM 4.1 MMOL/L (3.5-5.1); SODIUM 140 MMOL/L (135-145); TOTAL CARBON DIOXIDE 27.6 MMOL/L (24-32); TOTAL PROTEIN 5.6 G/DL (6.4-8.2); eGFR > 90 ML/MIN
--- NOTE | 2019-10-25 06:39 | NUR ---
Problems reprioritized. Patient report given, questions answered & plan of care reviewed with ARCHANA SONI.
--- NOTE | 2019-10-25 06:53 | NUR ---
Patient in room PCU 3018. I have received report from Honey MAGAÑA and had the opportunity to ask questions and assume patient care.
[2019-10-25] MEDS: lactose-reduced food (Ensure Enlive) - 237ml bottle PO SCH ×3 (08:00→18:00)
[2019-10-25] MEDS: mineral oil/petrolatum, white cream 113gm jar TP SCH ×2 (08:00→20:50)
[2019-10-25] MEDS: silver sulfadiazine cream 50gm TP SCH (08:00)
[2019-10-25] MEDS: K and/or MAG REPLACEMENT MC SCH ×2 (08:00→20:00)
[2019-10-25] MEDS: amantadine 100 MG capsule PO SCH ×2 (08:38→20:49)
[2019-10-25] MEDS: folic acid 1mg tablet PO SCH (08:39)
[2019-10-25] MEDS: multivitamins, therapeutics tablet PO SCH (08:39)
[2019-10-25] MEDS: cephalexin 500mg capsule PO SCH ×2 (08:39→17:00)
[2019-10-25] MEDS: pregabalin 25mg capsule PO SCH ×2 (08:39→17:00)
[2019-10-25] MEDS: aspirin 81mg tablet.DR PO SCH (08:39)
[2019-10-25] MEDS: baclofen 10mg tablet PO SCH ×2 (08:40→17:00)
[2019-10-25] MEDS: digoxin 125mcg (0.125mg) tablet PO SCH (08:40)
[2019-10-25] MEDS: lactobacillus rhamnosus 10,000 MMU CELLS/CAPSULE PO SCH ×2 (08:41→20:49)
[2019-10-25] MEDS: carbidoba-levodopa 25-100mg tablet PO SCH ×3 (08:41→20:50)
[2019-10-25] MEDS: quetiapine 100mg tablet PO SCH (08:41)
[2019-10-25] MEDS: risperiDONE 0.5mg tablet PO SCH ×2 (08:41→20:55)
[2019-10-25] MEDS: busPIRone 5mg tablet PO SCH ×2 (08:42→20:49)
[2019-10-25] MEDS: sulfamethoxazole/trimethoprim DS (800/160mg) tablet PO SCH ×2 (08:42→20:49)
[2019-10-25] MEDS: pantoprazole 40mg Tablet.DR PO SCH (08:42)
[2019-10-25] MEDS: normal saline 1000ml 1,000 ML IV SCH ×2 (08:43→16:59)
--- NOTE | 2019-10-25 09:03 | NUR ---
3018B Loretta Johns. The pt has Eliquis and Heparin ordered do you want to d/c one ? Pt needs something for constipation as well. No BM since 10/19 Lisbeth [phone] Thank you
[2019-10-25] MEDS: apixaban 5mg tablet PO SCH ×2 (10:33→20:49)
--- NOTE | 2019-10-25 11:26 | NUR ---
Reassessment: Pt PO increased to 50-75% avg w/ 100% ONS TID past 3 days meeting needs. LBM 10/18 receiving colace; YUNIEL d/w RN regarding additional routine bowel care per MD approval. Will continue to monitor. Recommendations: 1) advance diet as medically indicated to regular; pending CORPORATE DEVELOPMENT OFFICER BSS 2) Ensure Enlive TIDWM 3) Encourage PO intake; monitor need for adaptive-gaspar/assistance with meals 4) routine bowel care 5) Weekly scaled wts for wt accuracy Addendum: 10/25/19 at [address] Amended: Links added.
[2019-10-25] MEDS: docusate sod 100mg capsule PO PRN (12:01)
--- NOTE | 2019-10-25 18:00 | NUR ---
Problems reprioritized. Patient report given, questions answered & plan of care reviewed with Jo MAGAÑA.
--- NOTE | 2019-10-25 18:10 | NUR ---
Amio gtt discontinued and switched over to PO.
--- NOTE | 2019-10-25 18:54 | NUR ---
Patient in room PCU 3018. I have received report from Lisbeth MAGAÑA and had the opportunity to ask questions and assume patient care.
[2019-10-25 19:13] LABS: URINE AMPHETAMINE SCREEN NEGATIVE (Neg); URINE BARBITUATE SCREEN NEGATIVE (Neg); URINE BENZODIAZEPINES SCREEN NEGATIVE (Neg); URINE CANNABINOID SCREEN NEGATIVE (Neg); URINE COCAINE SCREEN NEGATIVE (Neg); URINE METHADONE SCREEN NEGATIVE (Neg); URINE OPIATE SCREEN NEGATIVE (Neg); URINE PHENCYCLIDINE SCREEN NEGATIVE (Neg)
--- NOTE | 2019-10-25 20:00 | NUR ---
Inspector Elevators from [facility] came to see patient due to his 1799 hold. Outreach Professional said that they will not be putting patient on a 5150 hold because he is acting appropriate. Also tox screen was negative.
[2019-10-25] MEDS: docusate sod 100mg capsule PO SCH (20:49)
[2019-10-25] MEDS: polyethylene glycol 3350 17gm powd pack PO SCH (20:50)
[2019-10-25] MEDS: tamsulosin 0.4mg capsule PO SCH (20:50)
[2019-10-25] MEDS: amiodarone 200mg tablet PO SCH (20:50)
[2019-10-25] MEDS: insulin glargine (Lantus) pen - multi-dose SQ SCH (21:00)
--- NOTE | 2019-10-25 23:00 | NUR ---
Received instructions from pharmacy about how to prepare soap suds enema. Need to obtain enema bucket from materials, put liquid soap with a 1:3 ratio, diluting with water. One part soap and 3 parts water, for a total volume of at least 100mls and insert about 25mls at a time.
--- NOTE | 2019-10-25 23:15 | NUR ---
Patient says that he does not want enema at this time but he is willing to try it tomorrow if he has not had a BM but he just started with the Miralax tonight and states that he feels it starting to work. He also said it is normal for him to go about every 6 days. No distention or abdominal discomfort noted.
[2019-10-26] MEDS: traMADol 50MG tablet PO PRN (00:05)
[2019-10-26] MEDS: baclofen 10mg tablet PO SCH ×3 (00:06→16:04)
[2019-10-26] MEDS: cephalexin 500mg capsule PO SCH ×3 (00:06→16:04)
[2019-10-26] MEDS: pregabalin 25mg capsule PO SCH ×3 (00:06→16:04)
[2019-10-26] MEDS: normal saline 1000ml 1,000 ML IV SCH ×3 (00:23→17:53)
[2019-10-26 02:00] VITALS: BP 106/59
--- NOTE | 2019-10-26 06:21 | NUR ---
Problems reprioritized. Patient report given, questions answered & plan of care reviewed with Kyra MAGAÑA.
--- NOTE | 2019-10-26 06:30 | NUR ---
Patient in room PCU 3018. I have received report from Bethanie MAGAÑA and had the opportunity to ask questions and assume patient care.
[2019-10-26 07:00] VITALS: BP 126/65
[2019-10-26] MEDS: tamsulosin 0.4mg capsule PO SCH (07:44)
[2019-10-26] MEDS: quetiapine 100mg tablet PO SCH (07:44)
[2019-10-26] MEDS: aspirin 81mg tablet.DR PO SCH (07:44)
[2019-10-26] MEDS: risperiDONE 0.5mg tablet PO SCH ×2 (07:45→20:35)
[2019-10-26] MEDS: digoxin 125mcg (0.125mg) tablet PO SCH (07:45)
[2019-10-26] MEDS: docusate sod 100mg capsule PO SCH ×2 (07:45→20:34)
[2019-10-26] MEDS: lactobacillus rhamnosus 10,000 MMU CELLS/CAPSULE PO SCH ×2 (07:45→20:35)
[2019-10-26] MEDS: amiodarone 200mg tablet PO SCH ×2 (07:46→20:35)
[2019-10-26] MEDS: apixaban 5mg tablet PO SCH ×2 (07:46→20:35)
[2019-10-26] MEDS: sulfamethoxazole/trimethoprim DS (800/160mg) tablet PO SCH ×2 (07:46→20:34)
[2019-10-26] MEDS: pantoprazole 40mg Tablet.DR PO SCH (07:46)
[2019-10-26] MEDS: multivitamins, therapeutics tablet PO SCH (07:46)
[2019-10-26] MEDS: folic acid 1mg tablet PO SCH (07:46)
[2019-10-26] MEDS: amantadine 100 MG capsule PO SCH ×2 (07:47→20:36)
[2019-10-26] MEDS: busPIRone 5mg tablet PO SCH ×2 (07:47→20:34)
[2019-10-26] MEDS: silver sulfadiazine cream 50gm TP SCH (07:53)
[2019-10-26] MEDS: mineral oil/petrolatum, white cream 113gm jar TP SCH ×2 (07:53→21:17)
[2019-10-26] MEDS: carbidoba-levodopa 25-100mg tablet PO SCH ×3 (07:53→20:34)
[2019-10-26] MEDS: K and/or MAG REPLACEMENT MC SCH ×2 (08:00→20:00)
[2019-10-26] MEDS: lactose-reduced food (Ensure Enlive) - 237ml bottle PO SCH ×3 (08:00→17:53)
[2019-10-26 11:00] VITALS: BP 100/39
--- NOTE | 2019-10-26 12:15 | NUR ---
I attempted to have the patient transfer himself to the bed from the chair, he was very unbalanced standing and couldn't stand up straight without stumbling, he stumbled back into his chair.
[2019-10-26] MEDS ORDERED: bisacodyl 10mg suppository rectal RC STA (14:29)
[2019-10-26 15:00] VITALS: BP 111/60
[2019-10-26 18:00] VITALS: BP 117/87
--- NOTE | 2019-10-26 18:30 | NUR ---
Problems reprioritized. Patient report given, questions answered & plan of care reviewed with Prudence RN.
--- NOTE | 2019-10-26 19:08 | NUR ---
Patient in room PCU 3018. I have received report from Kyra MAGAÑA and had the opportunity to ask questions and assume patient care.
[2019-10-26] MEDS: polyethylene glycol 3350 17gm powd pack PO SCH (20:35)
[2019-10-26] MEDS: insulin glargine (Lantus) pen - multi-dose SQ SCH (21:00)
--- NOTE | 2019-10-26 21:10 | NUR ---
intervention not done on day shift Addendum: 10/26/19 at 2110 by Hortensia Knight RN Amended: Links added.
[2019-10-26 22:00] VITALS: BP 117/45
[2019-10-27] VITALS (7 sets, daily range): BP systolic 87–129; BP diastolic 41–62
[2019-10-27] MEDS: baclofen 10mg tablet PO SCH ×3 (00:18→16:26)
[2019-10-27] MEDS: cephalexin 500mg capsule PO SCH ×3 (00:18→16:26)
[2019-10-27] MEDS: pregabalin 25mg capsule PO SCH ×3 (00:18→16:26)
[2019-10-27] MEDS: normal saline 1000ml 1,000 ML IV SCH ×2 (02:51→16:28)
--- NOTE | 2019-10-27 06:30 | NUR ---
Patient in room PCU 3018B. I have received report from Hortensia MAGAÑA and had the opportunity to ask questions and assume patient care. Patient laying in bed, eyes closed, no signs of distress. Will continue to monitor.
--- NOTE | 2019-10-27 06:31 | NUR ---
Problems reprioritized. Patient report given, questions answered & plan of care reviewed with CORRY MAGAÑA.
[2019-10-27] MEDS: K and/or MAG REPLACEMENT MC SCH ×3 (08:00→21:50)
[2019-10-27] MEDS: amiodarone 200mg tablet PO SCH ×2 (08:23→20:14)
[2019-10-27] MEDS: folic acid 1mg tablet PO SCH (08:23)
[2019-10-27] MEDS: aspirin 81mg tablet.DR PO SCH (08:24)
[2019-10-27] MEDS: lactobacillus rhamnosus 10,000 MMU CELLS/CAPSULE PO SCH ×2 (08:24→20:14)
[2019-10-27] MEDS: digoxin 125mcg (0.125mg) tablet PO SCH (08:24)
[2019-10-27] MEDS: amantadine 100 MG capsule PO SCH ×2 (08:24→20:12)
[2019-10-27] MEDS: apixaban 5mg tablet PO SCH ×2 (08:24→20:14)
[2019-10-27] MEDS: multivitamins, therapeutics tablet PO SCH (08:24)
[2019-10-27] MEDS: docusate sod 100mg capsule PO SCH ×2 (08:25→20:13)
[2019-10-27] MEDS: quetiapine 100mg tablet PO SCH (08:25)
[2019-10-27] MEDS: pantoprazole 40mg Tablet.DR PO SCH (08:25)
[2019-10-27] MEDS: busPIRone 5mg tablet PO SCH ×2 (08:25→20:13)
[2019-10-27] MEDS: carbidoba-levodopa 25-100mg tablet PO SCH ×3 (08:25→20:14)
[2019-10-27] MEDS: sulfamethoxazole/trimethoprim DS (800/160mg) tablet PO SCH ×2 (08:25→20:14)
[2019-10-27] MEDS: lactose-reduced food (Ensure Enlive) - 237ml bottle PO SCH ×3 (08:26→18:00)
[2019-10-27] MEDS: traMADol 50MG tablet PO PRN ×2 (08:26→20:15)
[2019-10-27] MEDS: silver sulfadiazine cream 50gm TP SCH (08:49)
[2019-10-27] MEDS: mineral oil/petrolatum, white cream 113gm jar TP SCH ×2 (08:49→20:31)
[2019-10-27] MEDS: risperiDONE 0.5mg tablet PO SCH ×2 (10:33→20:11)
--- NOTE | 2019-10-27 18:22 | NUR ---
Problems reprioritized. Patient report given, questions answered & plan of care reviewed with Daryn RN.
[2019-10-27] MEDS: tamsulosin 0.4mg capsule PO SCH (20:12)
[2019-10-27] MEDS: polyethylene glycol 3350 17gm powd pack PO SCH (20:30)
[2019-10-27] MEDS: insulin glargine (Lantus) pen - multi-dose SQ SCH (21:00)
[2019-10-27] MEDS ORDERED: potassium CL 10mEq/100ml bag 100 ML IV PRN (21:50)
[2019-10-27] MEDS ORDERED: potassium Cl 20 mEq SR tablet PO PRN ×2 (21:50)
[2019-10-27] MEDS ORDERED: magnesium 4gm in 100ml NS 100 ML IV PRN (21:50)
[2019-10-27] MEDS ORDERED: magnesium Cl slow-release 64mg tablet PO PRN (21:50)
[2019-10-28] VITALS (8 sets, daily range): BP systolic 68–116; BP diastolic 38–68
[2019-10-28] MEDS: baclofen 10mg tablet PO SCH ×4 (00:29→23:55)
[2019-10-28] MEDS: pregabalin 25mg capsule PO SCH ×4 (00:29→23:55)
[2019-10-28] MEDS: traMADol 50MG tablet PO PRN ×2 (02:11→23:55)
[2019-10-28] MEDS: normal saline 1000ml 1,000 ML IV SCH ×2 (05:31→15:49)
[2019-10-28 06:06] LABS: BASOPHILS # (AUTO) 0.1 X10'3 (0-0.2); BASOPHILS % (AUTO) 1.7 % (0-1); EOSINOPHILS # (AUTO) 0.5 X10'3 (0-0.9); EOSINOPHILS % (AUTO) 6.7 % (0-6); HEMATOCRIT 35.5 % (42.0-52.0); HEMOGLOBIN 11.5 g/dl (14.0-17.9); LYMPHOCYTES # (AUTO) 2.2 X10'3 (1.1-4.8); LYMPHOCYTES % (AUTO) 31.7 % (21-51); MEAN CORPUSCULAR HEMOGLOBIN 29.2 PG (27.0-31.0); MEAN CORPUSCULAR HGB CONC 32.5 g/dL (33.0-36.5); MEAN CORPUSCULAR VOLUME 89.8 FL (78-98); MEAN PLATELET VOLUME 8.5 FL (7.4-10.4); MONOCYTES # (AUTO) 0.6 X10'3 (0-0.9); MONOCYTES % (AUTO) 8.6 % (2-12); NEUTROPHILS # (AUTO) 3.5 X10'3 (1.8-7.7); NEUTROPHILS % (AUTO) 51.3 % (42-75); PLATELET COUNT 261 X10'3 (140-440); RED BLOOD COUNT 3.95 X10'6 (4.70-6.10); RED CELL DISTRIBUTION WIDTH 15.1 % (11.5-14.5); WHITE BLOOD COUNT 6.8 X10'3 (4.5-11.0)
--- NOTE | 2019-10-28 06:27 | NUR ---
Problems reprioritized. Patient report given, questions answered & plan of care reviewed with Kyra MAGAÑA.
--- NOTE | 2019-10-28 06:35 | NUR ---
Patient in room PCU 3018. I have received report from ARCHANA Stearns and had the opportunity to ask questions and assume patient care.
[2019-10-28 06:36] LABS: ALANINE AMINOTRANSFERASE 16 U/L (12-78); ALBUMIN 2.6 G/DL (3.4-5.0); ALBUMIN/GLOBULIN RATIO 0.7 (1.1-1.5); ALKALINE PHOSPHATASE 89 IU/L (46-116); ANION GAP 8 (8-16); ASPARTATE AMINO TRANSFERASE 15 U/L (10-37); BILIRUBIN,TOTAL 0.5 MG/DL (0.1-1.0); BLOOD UREA NITROGEN 16 MG/DL (7-18); BUN/CREATININE RATIO 22.9 (5.4-32.0); CALCIUM 8.8 MG/DL (8.5-10.1); CHLORIDE 105 MMOL/L (99-107); GLUCOSE 89 MG/DL (70-104); MAGNESIUM 1.8 MG/DL (1.5-2.4); PHOSPHORUS 3.1 MG/DL (2.3-4.5); POTASSIUM 4.3 MMOL/L (3.5-5.1); SODIUM 141 MMOL/L (135-145); TOTAL CARBON DIOXIDE 28.1 MMOL/L (24-32); TOTAL PROTEIN 6.2 G/DL (6.4-8.2); eGFR > 90 ML/MIN
[2019-10-28] MEDS: amantadine 100 MG capsule PO SCH ×2 (07:21→20:14)
[2019-10-28] MEDS: multivitamins, therapeutics tablet PO SCH (07:22)
[2019-10-28] MEDS: digoxin 125mcg (0.125mg) tablet PO SCH (07:22)
[2019-10-28] MEDS: amiodarone 200mg tablet PO SCH ×2 (07:22→20:15)
[2019-10-28] MEDS: folic acid 1mg tablet PO SCH (07:22)
[2019-10-28] MEDS: risperiDONE 0.5mg tablet PO SCH ×2 (07:22→20:16)
[2019-10-28] MEDS: docusate sod 100mg capsule PO SCH ×2 (07:22→20:15)
[2019-10-28] MEDS: quetiapine 100mg tablet PO SCH (07:23)
[2019-10-28] MEDS: carbidoba-levodopa 25-100mg tablet PO SCH ×3 (07:23→20:16)
[2019-10-28] MEDS: apixaban 5mg tablet PO SCH ×2 (07:23→20:15)
[2019-10-28] MEDS: aspirin 81mg tablet.DR PO SCH (07:23)
[2019-10-28] MEDS: pantoprazole 40mg Tablet.DR PO SCH (07:23)
[2019-10-28] MEDS: lactobacillus rhamnosus 10,000 MMU CELLS/CAPSULE PO SCH ×2 (07:23→20:13)
[2019-10-28] MEDS: busPIRone 5mg tablet PO SCH ×2 (07:24→20:13)
[2019-10-28] MEDS: mineral oil/petrolatum, white cream 113gm jar TP SCH ×2 (08:00→20:20)
[2019-10-28] MEDS: K and/or MAG REPLACEMENT MC SCH ×4 (08:00→20:00)
[2019-10-28] MEDS: silver sulfadiazine cream 50gm TP SCH (08:00)
[2019-10-28] MEDS: lactose-reduced food (Ensure Enlive) - 237ml bottle PO SCH ×3 (08:00→18:00)
--- NOTE | 2019-10-28 14:01 | NUR ---
PAGER ID: [phone] MESSAGE: 3018B. pt. Dionisio Galvan pt. orthostatic VS supine: 101/48, HR 66, sittin/50, HR 86, standin/38, HR 98. please advise. Neda [phone]
[2019-10-28] MEDS: fludrocortisone acetate 0.1mg tablet PO SCH (15:45)
[2019-10-28] MEDS: midodrine tablet 2.5 MG TABLET PO SCH ×2 (15:45→23:56)
--- NOTE | 2019-10-28 16:43 | NUR ---
per Dr. Sheffield, soap suds enema given to pt.
--- NOTE | 2019-10-28 18:30 | NUR ---
Problems reprioritized. Patient report given, questions answered & plan of care reviewed with Kyra MAGAÑA.
--- NOTE | 2019-10-28 18:35 | NUR ---
Problems reprioritized. Patient report given, questions answered & plan of care reviewed with ARCHANA Stearns.
[2019-10-28] MEDS: tamsulosin 0.4mg capsule PO SCH (20:21)
[2019-10-28] MEDS: polyethylene glycol 3350 17gm powd pack PO SCH (20:21)
[2019-10-28] MEDS: insulin glargine (Lantus) pen - multi-dose SQ SCH (21:00)
[2019-10-29] VITALS (10 sets, daily range): BP systolic 82–138; BP diastolic 46–69
--- NOTE | 2019-10-29 06:00 | NUR ---
Patient in room PCU 3018. I have received report from Daryn MAGAÑA and had the opportunity to ask questions and assume patient care.
[2019-10-29 06:01] LABS: BASOPHILS # (AUTO) 0.1 X10'3 (0-0.2); BASOPHILS % (AUTO) 0.9 % (0-1); EOSINOPHILS # (AUTO) 0.5 X10'3 (0-0.9); EOSINOPHILS % (AUTO) 7.3 % (0-6); HEMOGLOBIN 10.9 g/dl (14.0-17.9); LYMPHOCYTES # (AUTO) 2.4 X10'3 (1.1-4.8); LYMPHOCYTES % (AUTO) 35.4 % (21-51); MEAN CORPUSCULAR HEMOGLOBIN 29.4 PG (27.0-31.0); MEAN CORPUSCULAR HGB CONC 33.1 g/dL (33.0-36.5); MEAN CORPUSCULAR VOLUME 88.8 FL (78-98); MEAN PLATELET VOLUME 8.4 FL (7.4-10.4); MONOCYTES # (AUTO) 0.7 X10'3 (0-0.9); MONOCYTES % (AUTO) 10.2 % (2-12); NEUTROPHILS # (AUTO) 3.1 X10'3 (1.8-7.7); NEUTROPHILS % (AUTO) 46.2 % (42-75); PLATELET COUNT 279 X10'3 (140-440); RED BLOOD COUNT 3.71 X10'6 (4.70-6.10); RED CELL DISTRIBUTION WIDTH 15.1 % (11.5-14.5); WHITE BLOOD COUNT 6.7 X10'3 (4.5-11.0)
[2019-10-29 06:22] LABS: ALANINE AMINOTRANSFERASE 12 U/L (12-78); ALBUMIN 2.6 G/DL (3.4-5.0); ALBUMIN/GLOBULIN RATIO 0.7 (1.1-1.5); ALKALINE PHOSPHATASE 92 IU/L (46-116); ANION GAP 7 (8-16); ASPARTATE AMINO TRANSFERASE 18 U/L (10-37); BILIRUBIN,TOTAL 0.5 MG/DL (0.1-1.0); BLOOD UREA NITROGEN 15 MG/DL (7-18); BUN/CREATININE RATIO 20.5 (5.4-32.0); CALCIUM 8.6 MG/DL (8.5-10.1); CHLORIDE 107 MMOL/L (99-107); CREATININE 0.73 MG/DL (0.60-1.10); GLUCOSE 82 MG/DL (70-104); MAGNESIUM 1.9 MG/DL (1.5-2.4); PHOSPHORUS 3.4 MG/DL (2.3-4.5); POTASSIUM 3.7 MMOL/L (3.5-5.1); SODIUM 142 MMOL/L (135-145); TOTAL CARBON DIOXIDE 28.3 MMOL/L (24-32); TOTAL PROTEIN 6.1 G/DL (6.4-8.2); eGFR > 90 ML/MIN
--- NOTE | 2019-10-29 06:42 | NUR ---
Problems reprioritized. Patient report given, questions answered & plan of care reviewed with Lisha MAGAÑA.
--- NOTE | 2019-10-29 07:32 | NUR ---
Patient in room PCU 3018. I have received report from Daryn MAGAÑA and had the opportunity to ask questions and assume patient care. Patient awake at this time, offers no complaints, urinal dumped, will continue to monitor.
[2019-10-29] MEDS: lactose-reduced food (Ensure Enlive) - 237ml bottle PO SCH ×3 (08:00→18:00)
[2019-10-29] MEDS: K and/or MAG REPLACEMENT MC SCH ×4 (08:00→19:34)
[2019-10-29] MEDS: silver sulfadiazine cream 50gm TP SCH (08:00)
[2019-10-29] MEDS: normal saline 1000ml 1,000 ML IV SCH ×2 (08:11→21:31)
[2019-10-29] MEDS: lactobacillus rhamnosus 10,000 MMU CELLS/CAPSULE PO SCH ×2 (08:38→19:44)
[2019-10-29] MEDS: pantoprazole 40mg Tablet.DR PO SCH (08:38)
[2019-10-29] MEDS: docusate sod 100mg capsule PO SCH ×2 (08:38→19:44)
[2019-10-29] MEDS: amiodarone 200mg tablet PO SCH ×2 (08:38→19:44)
[2019-10-29] MEDS: busPIRone 5mg tablet PO SCH ×2 (08:38→19:43)
[2019-10-29] MEDS: aspirin 81mg tablet.DR PO SCH (08:39)
[2019-10-29] MEDS: digoxin 125mcg (0.125mg) tablet PO SCH (08:39)
[2019-10-29] MEDS: folic acid 1mg tablet PO SCH (08:39)
[2019-10-29] MEDS: apixaban 5mg tablet PO SCH ×2 (08:39→19:44)
[2019-10-29] MEDS: pregabalin 25mg capsule PO SCH ×3 (08:40→23:29)
[2019-10-29] MEDS: risperiDONE 0.5mg tablet PO SCH ×2 (08:40→19:44)
[2019-10-29] MEDS: baclofen 10mg tablet PO SCH ×3 (08:40→23:26)
[2019-10-29] MEDS: midodrine tablet 2.5 MG TABLET PO SCH ×3 (08:40→23:26)
[2019-10-29] MEDS: quetiapine 100mg tablet PO SCH (08:41)
[2019-10-29] MEDS: carbidoba-levodopa 25-100mg tablet PO SCH ×3 (08:41→21:09)
[2019-10-29] MEDS: multivitamins, therapeutics tablet PO SCH (08:42)
[2019-10-29] MEDS: amantadine 100 MG capsule PO SCH ×2 (08:42→19:44)
[2019-10-29] MEDS: fludrocortisone acetate 0.1mg tablet PO SCH (08:43)
--- NOTE | 2019-10-29 13:25 | NUR ---
Reassessment: Pt PO continues to improve to 75-100% avg recent meals and 75% ensure enlive TIDWM meeting needs. [facility] 10/25. No nutrition concerns at this time. Will continue to monitor. Recommendations: 1) advance diet as medically indicated to regular; pending BUS BOY BSS 2) Ensure Enlive TIDWM 3) Encourage PO intake; monitor need for adaptive-gaspar/assistance with meals 4) routine bowel care 5) Weekly scaled wts for wt accuracy Addendum: 10/29/19 at [address] Amended: Links added.
[2019-10-29] MEDS ORDERED: mineral oil 133ml enema RC PRN (15:00)
[2019-10-29] MEDS: mineral oil/petrolatum, white cream 113gm jar TP SCH ×2 (17:33→19:44)
[2019-10-29] MEDS: traMADol 50MG tablet PO PRN (19:04)
[2019-10-29] MEDS: lactulose 20gm/30ml cup PO SCH (19:43)
[2019-10-29] MEDS: insulin glargine (Lantus) pen - multi-dose SQ SCH (21:00)
[2019-10-29] MEDS: tamsulosin 0.4mg capsule PO SCH (21:09)
[2019-10-29] MEDS: polyethylene glycol 3350 17gm powd pack PO SCH (21:09)
[2019-10-30] VITALS (7 sets, daily range): BP systolic 89–121; BP diastolic 46–93
[2019-10-30] MEDS: lactulose 20gm/30ml cup PO SCH ×4 (02:32→14:00)
--- NOTE | 2019-10-30 06:00 | NUR ---
Patient in room U 3018. I have received report from Joshua MAGAÑA and had the opportunity to ask questions and assume patient care. Patient awake and oriented.
--- NOTE | 2019-10-30 06:19 | NUR ---
Problems reprioritized. Patient report given, questions answered & plan of care reviewed with Halie. Addendum: 10/30/19 at 0620 by Julian Elizondo RN Amended: Links added.
--- NOTE | 2019-10-30 06:27 | NUR ---
Patient in room PCU 3018. I have received report from Joshua MAGAÑA and had the opportunity to ask questions and assume patient care. Patient awake and oriented at this time, was getting on a bedpan to try and have a bowel movement, offers no complaints, will continue to monitor.
[2019-10-30] MEDS: lactose-reduced food (Ensure Enlive) - 237ml bottle PO SCH ×3 (08:00→18:00)
[2019-10-30] MEDS: K and/or MAG REPLACEMENT MC SCH ×4 (08:00→20:00)
[2019-10-30] MEDS: mineral oil/petrolatum, white cream 113gm jar TP SCH ×2 (08:00→20:00)
[2019-10-30] MEDS: silver sulfadiazine cream 50gm TP SCH (08:00)
[2019-10-30] MEDS: pantoprazole 40mg Tablet.DR PO SCH (10:09)
[2019-10-30] MEDS: lactobacillus rhamnosus 10,000 MMU CELLS/CAPSULE PO SCH ×2 (10:10→21:08)
[2019-10-30] MEDS: busPIRone 5mg tablet PO SCH ×2 (10:10→21:08)
[2019-10-30] MEDS: amiodarone 200mg tablet PO SCH ×2 (10:10→21:09)
[2019-10-30] MEDS: docusate sod 100mg capsule PO SCH ×2 (10:10→21:09)
[2019-10-30] MEDS: folic acid 1mg tablet PO SCH (10:11)
[2019-10-30] MEDS: aspirin 81mg tablet.DR PO SCH (10:11)
[2019-10-30] MEDS: apixaban 5mg tablet PO SCH ×2 (10:11→21:09)
[2019-10-30] MEDS: baclofen 10mg tablet PO SCH ×2 (10:12→16:04)
[2019-10-30] MEDS: digoxin 125mcg (0.125mg) tablet PO SCH (10:12)
[2019-10-30] MEDS: midodrine tablet 2.5 MG TABLET PO SCH ×2 (10:13→16:04)
[2019-10-30] MEDS: pregabalin 25mg capsule PO SCH ×2 (10:13→16:04)
[2019-10-30] MEDS: carbidoba-levodopa 25-100mg tablet PO SCH ×3 (10:14→21:09)
[2019-10-30] MEDS: risperiDONE 0.5mg tablet PO SCH ×2 (10:14→21:09)
[2019-10-30] MEDS: amantadine 100 MG capsule PO SCH ×2 (10:14→21:08)
[2019-10-30] MEDS: quetiapine 100mg tablet PO SCH (10:14)
[2019-10-30] MEDS: fludrocortisone acetate 0.1mg tablet PO SCH (10:15)
[2019-10-30] MEDS: multivitamins, therapeutics tablet PO SCH (10:15)
[2019-10-30] MEDS: traMADol 50MG tablet PO PRN (10:37)
[2019-10-30] MEDS: normal saline 1000ml 1,000 ML IV SCH (12:28)
--- NOTE | 2019-10-30 14:30 | NUR ---
I agree with ARCHANA Ambrose's physical assessment.
--- NOTE | 2019-10-30 14:30 | NUR ---
[place]rientee documentation: I have reviewed and agree with interventions, assessments performed and documented by Veronica MAGAÑA. [place] Medication Administration: For this medication-pass time frame, medication were reviewed, dispensed, administered and documented per hospital policy by Veronica MAGAÑA .
--- NOTE | 2019-10-30 14:31 | NUR ---
Problems reprioritized. Patient report given, questions answered & plan of care reviewed with Adilia RN. Patient alert and awake at this time, offers no complaints, IV fluids running per order.
--- NOTE | 2019-10-30 18:00 | NUR ---
Problems reprioritized. Patient report given, questions answered & plan of care reviewed with ARCHANA Marcial.
[2019-10-30] MEDS: insulin glargine (Lantus) pen - multi-dose SQ SCH (21:00)
[2019-10-30] MEDS: polyethylene glycol 3350 17gm powd pack PO SCH (21:00)
[2019-10-30] MEDS: tamsulosin 0.4mg capsule PO SCH (21:09)
[2019-10-31] VITALS (9 sets, daily range): BP systolic 88–128; BP diastolic 41–65
[2019-10-31] MEDS: midodrine tablet 2.5 MG TABLET PO SCH ×4 (00:29→23:33)
[2019-10-31] MEDS: baclofen 10mg tablet PO SCH ×4 (00:30→23:33)
[2019-10-31] MEDS: pregabalin 25mg capsule PO SCH ×4 (00:30→23:33)
[2019-10-31] MEDS: traMADol 50MG tablet PO PRN ×4 (00:37→22:06)
[2019-10-31] MEDS: multivitamins, therapeutics tablet PO SCH (07:53)
[2019-10-31] MEDS: carbidoba-levodopa 25-100mg tablet PO SCH ×3 (07:54→21:58)
[2019-10-31] MEDS: apixaban 5mg tablet PO SCH ×2 (07:54→20:31)
[2019-10-31] MEDS: docusate sod 100mg capsule PO SCH ×2 (07:54→20:30)
[2019-10-31] MEDS: lactobacillus rhamnosus 10,000 MMU CELLS/CAPSULE PO SCH ×2 (07:54→20:31)
[2019-10-31] MEDS: quetiapine 100mg tablet PO SCH (07:54)
[2019-10-31] MEDS: busPIRone 5mg tablet PO SCH ×2 (07:54→20:30)
[2019-10-31] MEDS: digoxin 125mcg (0.125mg) tablet PO SCH (07:55)
[2019-10-31] MEDS: folic acid 1mg tablet PO SCH (07:55)
[2019-10-31] MEDS: risperiDONE 0.5mg tablet PO SCH ×2 (07:56→20:31)
[2019-10-31] MEDS: fludrocortisone acetate 0.1mg tablet PO SCH (07:56)
[2019-10-31] MEDS: pantoprazole 40mg Tablet.DR PO SCH (07:56)
[2019-10-31] MEDS: amiodarone 200mg tablet PO SCH ×2 (07:57→20:30)
[2019-10-31] MEDS: aspirin 81mg tablet.DR PO SCH (07:57)
[2019-10-31] MEDS: amantadine 100 MG capsule PO SCH ×2 (07:57→20:31)
[2019-10-31] MEDS: lactulose 20gm/30ml cup PO SCH (07:57)
[2019-10-31] MEDS: K and/or MAG REPLACEMENT MC SCH ×3 (07:58→20:00)
[2019-10-31] MEDS: mineral oil/petrolatum, white cream 113gm jar TP SCH ×2 (07:58→20:31)
[2019-10-31] MEDS: normal saline 1000ml 1,000 ML IV SCH (08:07)
[2019-10-31] MEDS: lactose-reduced food (Ensure Enlive) - 237ml bottle PO SCH ×3 (08:07→17:59)
--- NOTE | 2019-10-31 18:36 | NUR ---
Problems reprioritized. Patient report given, questions answered & plan of care reviewed with ARCHANA Lewis.
[2019-10-31] MEDS: polyethylene glycol 3350 17gm powd pack PO SCH (21:00)
[2019-10-31] MEDS: insulin glargine (Lantus) pen - multi-dose SQ SCH (21:00)
[2019-10-31] MEDS: tamsulosin 0.4mg capsule PO SCH (21:58)
[2019-11-01 02:00] VITALS: BP 106/53
[2019-11-01] MEDS: normal saline 1000ml 1,000 ML IV SCH ×2 (04:00→17:23)
[2019-11-01 05:13] LABS: BASOPHILS # (AUTO) 0.1 X10'3 (0-0.2); BASOPHILS % (AUTO) 0.7 % (0-1); EOSINOPHILS # (AUTO) 0.4 X10'3 (0-0.9); EOSINOPHILS % (AUTO) 4.4 % (0-6); HEMATOCRIT 36.5 % (42.0-52.0); HEMOGLOBIN 11.9 g/dl (14.0-17.9); LYMPHOCYTES # (AUTO) 3.2 X10'3 (1.1-4.8); LYMPHOCYTES % (AUTO) 34.7 % (21-51); MEAN CORPUSCULAR HEMOGLOBIN 29.8 PG (27.0-31.0); MEAN CORPUSCULAR HGB CONC 32.6 g/dL (33.0-36.5); MEAN CORPUSCULAR VOLUME 91.5 FL (78-98); MEAN PLATELET VOLUME 8.1 FL (7.4-10.4); MONOCYTES # (AUTO) 0.7 X10'3 (0-0.9); MONOCYTES % (AUTO) 7.7 % (2-12); NEUTROPHILS # (AUTO) 4.9 X10'3 (1.8-7.7); NEUTROPHILS % (AUTO) 52.5 % (42-75); PLATELET COUNT 324 X10'3 (140-440); RED BLOOD COUNT 3.98 X10'6 (4.70-6.10); RED CELL DISTRIBUTION WIDTH 15.3 % (11.5-14.5); WHITE BLOOD COUNT 9.3 X10'3 (4.5-11.0)
[2019-11-01 05:31] LABS: ALANINE AMINOTRANSFERASE 13 U/L (12-78); ALBUMIN 3.1 G/DL (3.4-5.0); ALBUMIN/GLOBULIN RATIO 0.8 (1.1-1.5); ALKALINE PHOSPHATASE 124 IU/L (46-116); ANION GAP 2 (8-16); ASPARTATE AMINO TRANSFERASE 28 U/L (10-37); BILIRUBIN,TOTAL 0.5 MG/DL (0.1-1.0); BLOOD UREA NITROGEN 15 MG/DL (7-18); BUN/CREATININE RATIO 19.2 (5.4-32.0); CALCIUM 9.4 MG/DL (8.5-10.1); CHLORIDE 106 MMOL/L (99-107); CREATININE 0.78 MG/DL (0.60-1.10); GLUCOSE 94 MG/DL (70-104); MAGNESIUM 1.9 MG/DL (1.5-2.4); PHOSPHORUS 3.3 MG/DL (2.3-4.5); POTASSIUM 3.6 MMOL/L (3.5-5.1); SODIUM 140 MMOL/L (135-145); TOTAL CARBON DIOXIDE 32.1 MMOL/L (24-32); TOTAL PROTEIN 7.1 G/DL (6.4-8.2); eGFR > 90 ML/MIN
--- NOTE | 2019-11-01 06:20 | NUR ---
Problems reprioritized. Patient report given, questions answered & plan of care reviewed with CHRISTOPHER MAGAÑA. Addendum: 11/01/19 at 0621 by Julian Elizondo RN Amended: Links added.
--- NOTE | 2019-11-01 06:41 | NUR ---
Patient in room U 3018. I have received report from ARCHANA Lewis and had the opportunity to ask questions and assume patient care. Patient awake in bed and in no acute distress.
[2019-11-01 07:00] VITALS: BP 92/59
[2019-11-01] MEDS: lactulose 20gm/30ml cup PO SCH (07:41)
[2019-11-01] MEDS: risperiDONE 0.5mg tablet PO SCH ×2 (07:42→20:33)
[2019-11-01] MEDS: carbidoba-levodopa 25-100mg tablet PO SCH ×3 (07:42→20:33)
[2019-11-01] MEDS: busPIRone 5mg tablet PO SCH ×2 (07:43→20:33)
[2019-11-01] MEDS: apixaban 5mg tablet PO SCH ×2 (07:43→20:33)
[2019-11-01] MEDS: multivitamins, therapeutics tablet PO SCH (07:44)
[2019-11-01] MEDS: lactobacillus rhamnosus 10,000 MMU CELLS/CAPSULE PO SCH ×2 (07:44→20:33)
[2019-11-01] MEDS: pantoprazole 40mg Tablet.DR PO SCH (07:44)
[2019-11-01] MEDS: aspirin 81mg tablet.DR PO SCH (07:45)
[2019-11-01] MEDS: baclofen 10mg tablet PO SCH ×3 (07:45→23:59)
[2019-11-01] MEDS: folic acid 1mg tablet PO SCH (07:46)
[2019-11-01] MEDS: midodrine tablet 2.5 MG TABLET PO SCH ×3 (07:46→23:58)
[2019-11-01] MEDS: quetiapine 100mg tablet PO SCH (07:49)
[2019-11-01] MEDS: pregabalin 25mg capsule PO SCH ×3 (07:49→23:58)
[2019-11-01] MEDS: K and/or MAG REPLACEMENT MC SCH ×2 (07:51→20:00)
[2019-11-01] MEDS: docusate sod 100mg capsule PO SCH ×2 (07:51→20:33)
[2019-11-01] MEDS: digoxin 125mcg (0.125mg) tablet PO SCH (07:51)
[2019-11-01] MEDS: amantadine 100 MG capsule PO SCH ×2 (07:52→20:33)
[2019-11-01] MEDS: amiodarone 200mg tablet PO SCH ×2 (07:54→20:33)
[2019-11-01] MEDS: mineral oil/petrolatum, white cream 113gm jar TP SCH ×2 (07:55→20:35)
[2019-11-01 08:00] VITALS: BP_SYST 86; BP_SYST 92; BP_SYST 93; BP_DIAS 53; BP_DIAS 59; BP_DIAS 64
[2019-11-01] MEDS: lactose-reduced food (Ensure Enlive) - 237ml bottle PO SCH ×3 (08:00→18:44)
[2019-11-01] MEDS: fludrocortisone acetate 0.1mg tablet PO SCH (08:07)
[2019-11-01] MEDS: traMADol 50MG tablet PO PRN ×2 (08:12→23:59)
--- NOTE | 2019-11-01 17:26 | NUR ---
Administered NS at 50 mL/hr. Bar code wouldn't scan.
--- NOTE | 2019-11-01 18:08 | NUR ---
Problems reprioritized. Patient report given, questions answered & plan of care reviewed with ARCHANA Rae. Patient stable at transfer of care.
--- NOTE | 2019-11-01 18:10 | NUR ---
Patient in room PCU 3018. I have received report from ARCHANA Orlando and had the opportunity to ask questions and assume patient care.
[2019-11-01 19:00] VITALS: BP 123/67
[2019-11-01 20:00] VITALS: BP_SYST 135; BP_SYST 138; BP_DIAS 54; BP_DIAS 73
[2019-11-01] MEDS: tamsulosin 0.4mg capsule PO SCH (20:33)
[2019-11-01] MEDS: polyethylene glycol 3350 17gm powd pack PO SCH (20:36)
--- NOTE | 2019-11-01 20:45 | NUR ---
Primary nurse came back from break, in which it was reported by resource RN that patient had experienced a unwitnessed fall. Primary nurse went to bedside where she found pt in bed attempting to pee with two actively bleeding wounds on left hand. Nurse reoriented patient back to place, time, event. Pt was aware that he was confused and stated he feels like "he's dreaming and don't know what's reality or dreams." CT scan order has been placed. MD made aware of fall. Bed alarm was placed, SRx2, BLL, tab alarms. Pt experiencing generalized pain and requesting PRN Tramadol. Will continue to monitor.
[2019-11-01] MEDS: insulin glargine (Lantus) pen - multi-dose SQ SCH (21:00)
--- NOTE | 2019-11-01 21:42 | NUR ---
Patient called out from room, "Nurse!!!!" ARCHANA Rae was on break. Myself ARCHANA Berumen (break nurse) and [place] nurse aid, as well as Jose cavanaugh RN, ran to help patient. Patient was found down from falling. Patient was mildly confused and did not know he was in the hospital. Patient was helped back into bed, CT of head was ordered. Patient CT of head is negative for bleed. Patient moved from 3018 B to 3014 B where sitter is available and patient is close to nurses station.
--- NOTE | 2019-11-01 22:00 | NUR ---
Patient has returned from CT scan and placed in sitter room to be continuously watched. Patient still experiencing confusion, hallucination, and paranoia. Will continue to monitor with activated bed alarm and tabs.
[2019-11-01 23:00] VITALS: BP 102/51
[2019-11-01] MEDS ORDERED: OLANZapine **IM** 10 mg inj. IM ONE (23:45)
[2019-11-02] VITALS (8 sets, daily range): BP systolic 104–131; BP diastolic 54–71
--- NOTE | 2019-11-02 01:12 | NUR ---
Patient was heard at nurse's station screaming, " HELP! HELP! SOMEONE HELP!" Once many staff nurses ran into the room, patient was found to be in a extremely anxious, agitated, and confused state. Patient was unsuccessfully attempted to reorientate. MD will be notified.
--- NOTE | 2019-11-02 01:15 | NUR ---
MD Carey has ordered a ONE time dose of Zyprexa to ease patient's agitation. Medication to be administered with close pt monitoring.
--- NOTE | 2019-11-02 06:15 | NUR ---
Problems reprioritized. Patient report given, questions answered & plan of care reviewed with ARCHANA Mckeon and ARCHANA Manzanares.
--- NOTE | 2019-11-02 06:20 | NUR ---
Patient in room PCU 3014. I have received report from Kyra MAGAÑA and had the opportunity to ask questions and assume patient care.
[2019-11-02] MEDS: midodrine tablet 2.5 MG TABLET PO SCH ×2 (07:57→16:32)
[2019-11-02] MEDS: lactulose 20gm/30ml cup PO SCH (07:57)
[2019-11-02] MEDS: amantadine 100 MG capsule PO SCH ×2 (07:58→20:00)
[2019-11-02] MEDS: busPIRone 5mg tablet PO SCH ×2 (07:58→20:00)
[2019-11-02] MEDS: folic acid 1mg tablet PO SCH (07:59)
[2019-11-02] MEDS: aspirin 81mg tablet.DR PO SCH (07:59)
[2019-11-02] MEDS: pregabalin 25mg capsule PO SCH ×2 (07:59→16:31)
[2019-11-02] MEDS: fludrocortisone acetate 0.1mg tablet PO SCH (07:59)
[2019-11-02] MEDS: K and/or MAG REPLACEMENT MC SCH ×2 (08:00→20:00)
[2019-11-02] MEDS: pantoprazole 40mg Tablet.DR PO SCH (08:00)
[2019-11-02] MEDS: lactose-reduced food (Ensure Enlive) - 237ml bottle PO SCH ×3 (08:00→18:00)
[2019-11-02] MEDS: lactobacillus rhamnosus 10,000 MMU CELLS/CAPSULE PO SCH ×2 (08:00→20:00)
[2019-11-02] MEDS: multivitamins, therapeutics tablet PO SCH (08:00)
[2019-11-02] MEDS: mineral oil/petrolatum, white cream 113gm jar TP SCH ×2 (08:00→20:00)
[2019-11-02] MEDS: digoxin 125mcg (0.125mg) tablet PO SCH (08:00)
[2019-11-02] MEDS: apixaban 5mg tablet PO SCH ×2 (08:00→20:00)
[2019-11-02] MEDS: docusate sod 100mg capsule PO SCH ×2 (08:00→20:00)
[2019-11-02] MEDS: carbidoba-levodopa 25-100mg tablet PO SCH ×3 (08:01→21:00)
[2019-11-02] MEDS: quetiapine 100mg tablet PO SCH (08:01)
[2019-11-02] MEDS: baclofen 10mg tablet PO SCH ×2 (08:01→16:32)
[2019-11-02] MEDS: risperiDONE 0.5mg tablet PO SCH ×2 (08:01→20:00)
[2019-11-02] MEDS: amiodarone 200mg tablet PO SCH ×2 (08:01→20:00)
[2019-11-02 10:07] LABS: BASOPHILS # (AUTO) 0.1 X10'3 (0-0.2); BASOPHILS % (AUTO) 0.8 % (0-1); EOSINOPHILS # (AUTO) 0.3 X10'3 (0-0.9); HEMATOCRIT 29.8 % (42.0-52.0); HEMOGLOBIN 9.8 g/dl (14.0-17.9); LYMPHOCYTES # (AUTO) 1.7 X10'3 (1.1-4.8); LYMPHOCYTES % (AUTO) 22.1 % (21-51); MEAN CORPUSCULAR HEMOGLOBIN 29.5 PG (27.0-31.0); MEAN CORPUSCULAR HGB CONC 32.7 g/dL (33.0-36.5); MEAN CORPUSCULAR VOLUME 90.1 FL (78-98); MEAN PLATELET VOLUME 7.9 FL (7.4-10.4); MONOCYTES # (AUTO) 0.5 X10'3 (0-0.9); NEUTROPHILS % (AUTO) 66.1 % (42-75); PLATELET COUNT 295 X10'3 (140-440); RED BLOOD COUNT 3.31 X10'6 (4.70-6.10); RED CELL DISTRIBUTION WIDTH 15.4 % (11.5-14.5); WHITE BLOOD COUNT 7.5 X10'3 (4.5-11.0)
[2019-11-02 10:19] LABS: ALBUMIN 2.4 G/DL (3.4-5.0); ANION GAP 5 (8-16); BLOOD UREA NITROGEN 12 MG/DL (7-18); BUN/CREATININE RATIO 20.7 (5.4-32.0); CALCIUM 8.4 MG/DL (8.5-10.1); CHLORIDE 110 MMOL/L (99-107); CREATININE 0.58 MG/DL (0.60-1.10); GLUCOSE 88 MG/DL (70-104); POTASSIUM 3.4 MMOL/L (3.5-5.1); SODIUM 144 MMOL/L (135-145); eGFR > 90 ML/MIN
--- NOTE | 2019-11-02 11:13 | NUR ---
Reassessment: Pt continues averaging 75-100% PO intake with some 50% PO intake of meals and average 75-100% PO intake of ONS TID meeting nutrient needs. Pt documented as A/O x 4 however intermittently confused and disoriented. Pt awaiting placement. [facility] 10/31. Will continue to follow. Recommendations: 1) advance diet as medically indicated to regular 2) Ensure Enlive TIDWM 3) Encourage PO intake; monitor need for adaptive-gaspar/assistance with meals 4) routine bowel care 5) Weekly scaled wts for wt accuracy Addendum: 11/02/19 at [address] Amended: Links added.
[2019-11-02] MEDS ORDERED: magnesium Cl slow-release 64mg tablet PO PRN (11:30)
[2019-11-02] MEDS ORDERED: magnesium 4gm in 100ml NS 100 ML IV PRN (11:30)
[2019-11-02] MEDS ORDERED: potassium Cl 20 mEq SR tablet PO PRN (11:30)
[2019-11-02] MEDS ORDERED: potassium CL 10mEq/100ml bag 100 ML IV PRN (11:30)
[2019-11-02] MEDS: potassium Cl 20 mEq SR tablet PO PRN ×2 (11:46→16:31)
--- NOTE | 2019-11-02 18:10 | NUR ---
Problems reprioritized. Patient report given, questions answered & plan of care reviewed with Maricruz Alcantara RN.
--- NOTE | 2019-11-02 18:30 | NUR ---
Patient in room PCU 3014. I have received report from ABDIRASHID MAGAÑA and had the opportunity to ask questions and assume patient care.
[2019-11-02] MEDS: normal saline 1000ml 1,000 ML IV SCH (20:28)
[2019-11-02] MEDS: tamsulosin 0.4mg capsule PO SCH (21:00)
[2019-11-02] MEDS: insulin glargine (Lantus) pen - multi-dose SQ SCH (21:00)
[2019-11-02] MEDS: polyethylene glycol 3350 17gm powd pack PO SCH (21:00)
[2019-11-03] VITALS (9 sets, daily range): BP systolic 103–147; BP diastolic 49–82
[2019-11-03] MEDS: pregabalin 25mg capsule PO SCH ×3 (00:37→16:35)
[2019-11-03] MEDS: baclofen 10mg tablet PO SCH ×3 (00:37→16:35)
[2019-11-03] MEDS: midodrine tablet 2.5 MG TABLET PO SCH ×3 (00:41→16:36)
--- NOTE | 2019-11-03 06:00 | NUR ---
Patient in room PCU 3014. I have received report from Maricruz Alcantara RN and had the opportunity to ask questions and assume patient care.
--- NOTE | 2019-11-03 06:08 | NUR ---
Patient in room PCU 3014. I have received report from ARCHANA Vela and had the opportunity to ask questions and assume patient care.
--- NOTE | 2019-11-03 06:13 | NUR ---
Problems reprioritized. Patient report given, questions answered & plan of care reviewed with ABDIRASHID MAGAÑA AND ANUJA MAGAÑA.
[2019-11-03] MEDS: mineral oil/petrolatum, white cream 113gm jar TP SCH ×2 (08:00→20:00)
[2019-11-03] MEDS: lactose-reduced food (Ensure Enlive) - 237ml bottle PO SCH ×3 (08:00→18:00)
[2019-11-03] MEDS: K and/or MAG REPLACEMENT MC SCH ×2 (08:00→20:00)
[2019-11-03] MEDS: aspirin 81mg tablet.DR PO SCH (08:50)
[2019-11-03] MEDS: risperiDONE 0.5mg tablet PO SCH ×2 (08:50→20:00)
[2019-11-03] MEDS: lactobacillus rhamnosus 10,000 MMU CELLS/CAPSULE PO SCH ×2 (08:50→21:01)
[2019-11-03] MEDS: docusate sod 100mg capsule PO SCH ×2 (08:50→21:01)
[2019-11-03] MEDS: fludrocortisone acetate 0.1mg tablet PO SCH (08:51)
[2019-11-03] MEDS: busPIRone 5mg tablet PO SCH ×2 (08:52→21:00)
[2019-11-03] MEDS: carbidoba-levodopa 25-100mg tablet PO SCH ×3 (08:53→21:01)
[2019-11-03] MEDS: multivitamins, therapeutics tablet PO SCH (08:55)
[2019-11-03] MEDS: folic acid 1mg tablet PO SCH (08:55)
[2019-11-03] MEDS: quetiapine 100mg tablet PO SCH (08:57)
[2019-11-03] MEDS: pantoprazole 40mg Tablet.DR PO SCH (08:58)
[2019-11-03] MEDS: amiodarone 200mg tablet PO SCH ×2 (08:59→21:01)
[2019-11-03] MEDS: digoxin 125mcg (0.125mg) tablet PO SCH (08:59)
[2019-11-03] MEDS: apixaban 5mg tablet PO SCH ×2 (08:59→21:00)
[2019-11-03] MEDS: lactulose 20gm/30ml cup PO SCH (09:00)
[2019-11-03] MEDS: amantadine 100 MG capsule PO SCH ×2 (09:00→21:00)
--- NOTE | 2019-11-03 18:20 | NUR ---
Problems reprioritized. Patient report given, questions answered & plan of care reviewed with Brandon MAGAÑA.
--- NOTE | 2019-11-03 18:22 | NUR ---
Problems reprioritized. Patient report given, questions answered & plan of care reviewed with ARCHANA Taylor.
--- NOTE | 2019-11-03 18:25 | NUR ---
Orientee documentation: I have reviewed and agree with all interventions, assessments performed and documented by Glenna Espinoza RN.
[2019-11-03] MEDS: insulin glargine (Lantus) pen - multi-dose SQ SCH (21:00)
[2019-11-03] MEDS: polyethylene glycol 3350 17gm powd pack PO SCH (21:00)
[2019-11-03] MEDS: tamsulosin 0.4mg capsule PO SCH (21:01)
[2019-11-03] MEDS: traMADol 50MG tablet PO PRN (21:05)
[2019-11-04] VITALS (7 sets, daily range): BP systolic 75–147; BP diastolic 38–69
[2019-11-04] MEDS: pregabalin 25mg capsule PO SCH ×3 (01:06→16:42)
[2019-11-04] MEDS: midodrine tablet 2.5 MG TABLET PO SCH ×3 (01:07→16:42)
[2019-11-04] MEDS: baclofen 10mg tablet PO SCH ×3 (01:07→16:42)
[2019-11-04 05:38] LABS: BASOPHILS # (AUTO) 0.1 X10'3 (0-0.2); BASOPHILS % (AUTO) 0.6 % (0-1); EOSINOPHILS # (AUTO) 0.3 X10'3 (0-0.9); HEMATOCRIT 32.9 % (42.0-52.0); HEMOGLOBIN 10.9 g/dl (14.0-17.9); LYMPHOCYTES # (AUTO) 2.5 X10'3 (1.1-4.8); LYMPHOCYTES % (AUTO) 30.2 % (21-51); MEAN CORPUSCULAR HEMOGLOBIN 29.7 PG (27.0-31.0); MEAN CORPUSCULAR VOLUME 90.2 FL (78-98); MEAN PLATELET VOLUME 8.1 FL (7.4-10.4); MONOCYTES # (AUTO) 0.6 X10'3 (0-0.9); MONOCYTES % (AUTO) 7.1 % (2-12); NEUTROPHILS # (AUTO) 4.7 X10'3 (1.8-7.7); NEUTROPHILS % (AUTO) 58.1 % (42-75); PLATELET COUNT 311 X10'3 (140-440); RED BLOOD COUNT 3.65 X10'6 (4.70-6.10); RED CELL DISTRIBUTION WIDTH 15.9 % (11.5-14.5); WHITE BLOOD COUNT 8.1 X10'3 (4.5-11.0)
[2019-11-04 05:59] LABS: ALBUMIN 2.5 G/DL (3.4-5.0); ANION GAP 6 (8-16); BLOOD UREA NITROGEN 13 MG/DL (7-18); BUN/CREATININE RATIO 20.3 (5.4-32.0); CALCIUM 8.6 MG/DL (8.5-10.1); CHLORIDE 110 MMOL/L (99-107); CREATININE 0.64 MG/DL (0.60-1.10); GLUCOSE 89 MG/DL (70-104); POTASSIUM 3.5 MMOL/L (3.5-5.1); SODIUM 145 MMOL/L (135-145); TOTAL CARBON DIOXIDE 28.7 MMOL/L (24-32); eGFR > 90 ML/MIN
--- NOTE | 2019-11-04 06:00 | NUR ---
Patient in room [place] [address]. I have received report from and had the opportunity to ask questions and assume patient care. Addendum: 11/04/19 at 0620 by Mike Mendez RN Patient in room [place] [address]. I have received report from Brandon MAGAÑA and had the opportunity to ask questions and assume patient care.
--- NOTE | 2019-11-04 06:12 | NUR ---
Patient in room PCU 3012. I have received report from Brandon MAGAÑA and had the opportunity to ask questions and assume patient care.
[2019-11-04] MEDS: K and/or MAG REPLACEMENT MC SCH ×2 (08:00→20:00)
[2019-11-04] MEDS: mineral oil/petrolatum, white cream 113gm jar TP SCH ×2 (08:00→21:38)
[2019-11-04] MEDS: lactose-reduced food (Ensure Enlive) - 237ml bottle PO SCH ×3 (08:00→18:00)
[2019-11-04] MEDS: QUEtiapine 25mg tablet PO SCH (08:20)
[2019-11-04] MEDS: aspirin 81mg tablet.DR PO SCH (08:20)
[2019-11-04] MEDS: amiodarone 200mg tablet PO SCH ×2 (08:23→21:32)
[2019-11-04] MEDS: fludrocortisone acetate 0.1mg tablet PO SCH (08:23)
[2019-11-04] MEDS: folic acid 1mg tablet PO SCH (08:24)
[2019-11-04] MEDS: busPIRone 5mg tablet PO SCH ×2 (08:25→21:33)
[2019-11-04] MEDS: carbidoba-levodopa 25-100mg tablet PO SCH ×3 (08:25→21:00)
[2019-11-04] MEDS: docusate sod 100mg capsule PO SCH ×2 (08:26→20:00)
[2019-11-04] MEDS: amantadine 100 MG capsule PO SCH ×2 (08:26→21:32)
[2019-11-04] MEDS: pantoprazole 40mg Tablet.DR PO SCH (08:27)
[2019-11-04] MEDS: lactobacillus rhamnosus 10,000 MMU CELLS/CAPSULE PO SCH ×2 (08:27→21:32)
[2019-11-04] MEDS: multivitamins, therapeutics tablet PO SCH (08:27)
[2019-11-04] MEDS: digoxin 125mcg (0.125mg) tablet PO SCH (08:28)
[2019-11-04] MEDS: apixaban 5mg tablet PO SCH ×2 (08:28→21:33)
[2019-11-04] MEDS: lactulose 20gm/30ml cup PO SCH (08:34)
[2019-11-04] MEDS: risperiDONE 0.5mg tablet PO SCH ×2 (08:51→21:34)
--- NOTE | 2019-11-04 18:00 | NUR ---
Orientee documentation: I have reviewed and agree with all interventions, assessments performed and documented by Glenna Espinoza RN.
--- NOTE | 2019-11-04 18:00 | NUR ---
Problems reprioritized. Patient report given, questions answered & plan of care reviewed with Edwina MAGAÑA.
--- NOTE | 2019-11-04 18:08 | NUR ---
Problems reprioritized. Patient report given, questions answered & plan of care reviewed with ARCHANA Bland.
--- NOTE | 2019-11-04 18:30 | NUR ---
Patient in room PCU 3012. I have received report from ANUJA and had the opportunity to ask questions and assume patient care.
[2019-11-04] MEDS: polyethylene glycol 3350 17gm powd pack PO SCH (21:00)
[2019-11-04] MEDS: insulin glargine (Lantus) pen - multi-dose SQ SCH (21:00)
[2019-11-04] MEDS: traMADol 50MG tablet PO PRN (21:33)
[2019-11-04] MEDS: tamsulosin 0.4mg capsule PO SCH (21:33)
[2019-11-05] MEDS: baclofen 10mg tablet PO SCH ×3 (00:33→16:32)
[2019-11-05] MEDS: pregabalin 25mg capsule PO SCH ×3 (00:33→16:33)
[2019-11-05] MEDS: midodrine tablet 2.5 MG TABLET PO SCH ×3 (00:33→16:33)
[2019-11-05 02:00] VITALS: BP 136/65
[2019-11-05] MEDS: traMADol 50MG tablet PO PRN ×2 (05:19→20:05)
[2019-11-05 06:00] VITALS: BP 123/58
--- NOTE | 2019-11-05 06:00 | NUR ---
Patient in room PCU 3012. I have received report from Chely MAGAÑA and had the opportunity to ask questions and assume patient care.
--- NOTE | 2019-11-05 06:05 | NUR ---
Patient in room PCU 3012. I have received report from Edwina MAGAÑA and had the opportunity to ask questions and assume patient care. Patient was awake at time of shift change report, offers no complaints, will continue at this time.
--- NOTE | 2019-11-05 06:33 | NUR ---
Problems reprioritized. Patient report given, questions answered & plan of care reviewed with ROSA.
[2019-11-05] MEDS: K and/or MAG REPLACEMENT MC SCH ×2 (08:00→20:00)
[2019-11-05] MEDS: mineral oil/petrolatum, white cream 113gm jar TP SCH ×2 (08:00→20:00)
[2019-11-05] MEDS: lactose-reduced food (Ensure Enlive) - 237ml bottle PO SCH ×3 (08:00→18:00)
[2019-11-05] MEDS: docusate sod 100mg capsule PO SCH ×2 (09:05→20:00)
[2019-11-05] MEDS: busPIRone 5mg tablet PO SCH ×2 (09:05→20:05)
[2019-11-05] MEDS: lactulose 20gm/30ml cup PO SCH (09:05)
[2019-11-05] MEDS: aspirin 81mg tablet.DR PO SCH (09:06)
[2019-11-05] MEDS: lactobacillus rhamnosus 10,000 MMU CELLS/CAPSULE PO SCH ×2 (09:06→20:05)
[2019-11-05] MEDS: amiodarone 200mg tablet PO SCH ×2 (09:06→20:05)
[2019-11-05] MEDS: apixaban 5mg tablet PO SCH ×2 (09:07→20:05)
[2019-11-05] MEDS: pantoprazole 40mg Tablet.DR PO SCH (09:07)
[2019-11-05] MEDS: folic acid 1mg tablet PO SCH (09:07)
[2019-11-05] MEDS: digoxin 125mcg (0.125mg) tablet PO SCH (09:08)
[2019-11-05] MEDS: QUEtiapine 25mg tablet PO SCH (09:09)
[2019-11-05] MEDS: carbidoba-levodopa 25-100mg tablet PO SCH ×3 (09:09→21:00)
[2019-11-05] MEDS: amantadine 100 MG capsule PO SCH ×2 (09:10→20:05)
[2019-11-05] MEDS: fludrocortisone acetate 0.1mg tablet PO SCH (09:10)
[2019-11-05] MEDS: multivitamins, therapeutics tablet PO SCH (09:10)
[2019-11-05] MEDS: risperiDONE 0.5mg tablet PO SCH ×2 (09:18→20:06)
[2019-11-05 11:00] VITALS: BP 124/60
--- NOTE | 2019-11-05 11:19 | NUR ---
promotional table spacer PAGER ID: [phone] MESSAGE: Eze 716Cole Huang. Pt has had several episodes of confusion and flailing, no labs were ordered for today can we order labs? Halie [phone]
--- NOTE | 2019-11-05 13:04 | NUR ---
PAGER ID: [phone] MESSAGE: [phone] Felisha Galvan. Patient is in need of restraints and a sitter. Please place order or call Halie/ Veronica Chapman45 (111 character message out of a maximum of [phone])
--- NOTE | 2019-11-05 13:26 | NUR ---
Reassessment: Pt PO 75% avg ONS and 50-75% avg heart healthy meals; fluctuates w/ ALOC AOx2 though meeting needs. LBM 11/03. No nutrition concerns at this time. Will continue to monitor. Recommendations: 1) advance diet as medically indicated to regular 2) Ensure Enlive TIDWM 3) Encourage PO intake 4) routine bowel care 5) Weekly scaled wts for wt accuracy Addendum: 11/05/19 at [address] Amended: Links added.
--- NOTE | 2019-11-05 13:37 | NUR ---
Spoke with Dr. Rebollar regarding the patient's behavior. New order obtained for soft limb restraints. Patient is having intermittent confusion and aggression with kicking and grabbing staff. Patient has been reoriented several times, patient is a risk to others as well as himself with thrashing and kicking. Asked Dr. Rebollar about starting fluids and informed him the patient is not eating or drinking at this time, also asked if labs should be ordered as there were none from this morning. No other orders received, will continue to monitor the patient closely.
--- NOTE | 2019-11-05 13:50 | NUR ---
promotional table spacer PAGER ID: [phone] MESSAGE: Cole Guillaume. Bladder scanned patient who has 445ml and has not voided all day, would you like to put in a straight cath order? Halie [phone]
[2019-11-05 15:00] VITALS: BP 118/60
[2019-11-05 18:30] VITALS: BP 119/58
--- NOTE | 2019-11-05 18:30 | NUR ---
Patient in room PCU 3012. I have received report from JOSE A/KATALINA and had the opportunity to ask questions and assume patient care.
--- NOTE | 2019-11-05 19:00 | NUR ---
PT APPEARS CALM WITH OCCASIONAL EPISODES OF AGITATION. BILATERAL WRIST RESTRAINTS REMOVED AT THIS TIME. BILATERAL LE RESTRAINTS LEFT IN PLACE, PT CONTINUES TO KICK LEGS AT TIMES. WILL CONTINUE TO MONITOR.
[2019-11-05] MEDS: tamsulosin 0.4mg capsule PO SCH (20:05)
[2019-11-05] MEDS: insulin glargine (Lantus) pen - multi-dose SQ SCH (21:00)
[2019-11-05] MEDS: polyethylene glycol 3350 17gm powd pack PO SCH (21:00)
[2019-11-05 23:00] VITALS: BP 128/69
[2019-11-06 02:00] VITALS: BP 104/64
[2019-11-06] MEDS: traMADol 50MG tablet PO PRN ×2 (03:54→16:56)
--- NOTE | 2019-11-06 04:45 | NUR ---
RESTRAINTS OFF: PT MORE APPROPRIATE, FOLLOWING COMMANDS. CONVERSING WITH STAFF, COOPERATIVE. WILL CONTINUE TO MONITOR
[2019-11-06 06:00] VITALS: BP 144/58
--- NOTE | 2019-11-06 06:00 | NUR ---
Patient in room PCU 3012. I have received report from Chely MAGAÑA and had the opportunity to ask questions and assume patient care.
--- NOTE | 2019-11-06 06:05 | NUR ---
Patient in room PCU 3012. I have received report from Edwina MAGAÑA and had the opportunity to ask questions and assume patient care. Patient was in bed, confused, restraints are released at this time, patient is thrashing slightly, offers no complaints at this time, will continue to monitor.
--- NOTE | 2019-11-06 06:28 | NUR ---
Problems reprioritized. Patient report given, questions answered & plan of care reviewed with ROSA.
[2019-11-06] MEDS: lactose-reduced food (Ensure Enlive) - 237ml bottle PO SCH ×3 (08:00→18:00)
[2019-11-06] MEDS: K and/or MAG REPLACEMENT MC SCH ×2 (08:00→20:00)
[2019-11-06] MEDS: aspirin 81mg tablet.DR PO SCH (08:00)
[2019-11-06] MEDS ORDERED: risperiDONE 0.5mg tablet PO PRN (08:50)
--- NOTE | 2019-11-06 08:54 | NUR ---
Spoke with Dr. Rebollar new orders obtained, changed medications, asked him to renew the restraint order as the patient is still trashing and kicks wildly at staff when having an episode of confusion and order to d/c tele.
[2019-11-06] MEDS: pantoprazole 40mg Tablet.DR PO SCH (09:40)
[2019-11-06] MEDS: busPIRone 5mg tablet PO SCH ×2 (09:41→21:10)
[2019-11-06] MEDS: lactulose 20gm/30ml cup PO SCH (09:41)
[2019-11-06] MEDS: docusate sod 100mg capsule PO SCH ×2 (09:41→21:14)
[2019-11-06] MEDS: amiodarone 200mg tablet PO SCH ×2 (09:42→21:10)
[2019-11-06] MEDS: lactobacillus rhamnosus 10,000 MMU CELLS/CAPSULE PO SCH ×2 (09:42→21:09)
[2019-11-06] MEDS: apixaban 5mg tablet PO SCH ×2 (09:42→21:10)
[2019-11-06] MEDS: folic acid 1mg tablet PO SCH (09:43)
[2019-11-06] MEDS: baclofen 10mg tablet PO SCH ×3 (09:44→16:56)
[2019-11-06] MEDS: pregabalin 25mg capsule PO SCH ×3 (09:44→16:56)
[2019-11-06] MEDS: digoxin 125mcg (0.125mg) tablet PO SCH (09:44)
[2019-11-06] MEDS: midodrine tablet 2.5 MG TABLET PO SCH ×3 (09:44→16:55)
[2019-11-06] MEDS: multivitamins, therapeutics tablet PO SCH (09:45)
[2019-11-06] MEDS: carbidoba-levodopa 25-100mg tablet PO SCH ×3 (09:45→21:10)
[2019-11-06] MEDS: amantadine 100 MG capsule PO SCH ×2 (09:45→21:12)
[2019-11-06] MEDS: fludrocortisone acetate 0.1mg tablet PO SCH (09:46)
[2019-11-06] MEDS: mineral oil/petrolatum, white cream 113gm jar TP SCH ×2 (09:46→21:14)
[2019-11-06 11:00] VITALS: BP 139/46
[2019-11-06 15:00] VITALS: BP 130/64
--- NOTE | 2019-11-06 17:43 | NUR ---
PAGER ID: [phone] MESSAGE: Cole Mcclelland. Could you please renew the restraint order for this patient. Thank you, Halie [phone]
--- NOTE | 2019-11-06 18:27 | NUR ---
Problems reprioritized. Patient report given, questions answered & plan of care reviewed with Edwina MAGAÑA and Vianca MAGAÑA student [].
--- NOTE | 2019-11-06 18:30 | NUR ---
Patient in room PCU 3012. I have received report from KATALINA and had the opportunity to ask questions and assume patient care. ASSUMED CARE OF PT WITH RN STUDENT ANTOINETTE Stokes
[2019-11-06 19:30] VITALS: BP 121/70
[2019-11-06] MEDS: insulin glargine (Lantus) pen - multi-dose SQ SCH (21:00)
[2019-11-06] MEDS: polyethylene glycol 3350 17gm powd pack PO SCH (21:00)
[2019-11-06] MEDS: tamsulosin 0.4mg capsule PO SCH (21:11)
[2019-11-06 22:00] VITALS: BP 117/54
[2019-11-07] MEDS: pregabalin 25mg capsule PO SCH ×3 (00:10→16:38)
[2019-11-07] MEDS: traMADol 50MG tablet PO PRN (00:11)
[2019-11-07] MEDS: baclofen 10mg tablet PO SCH ×3 (00:11→16:38)
[2019-11-07] MEDS: midodrine tablet 2.5 MG TABLET PO SCH ×3 (00:11→16:39)
[2019-11-07 02:00] VITALS: BP 143/53
--- NOTE | 2019-11-07 06:00 | NUR ---
Patient in room PCU 3012. I have received report from Chely MAGAÑA and had the opportunity to ask questions and assume patient care. Patient resting comfortable in bed and is stable at this time
--- NOTE | 2019-11-07 06:04 | NUR ---
Student documentation: I have reviewed and agree with all interventions, assessments performed and documented by ANTOINETTE Schwab Medication Administration: For this medication-pass time frame, all medication were reviewed, dispensed, administered and documented per hospital policy by ANTOINETTE Stokes
--- NOTE | 2019-11-07 06:34 | NUR ---
Problems reprioritized. Patient report given, questions answered & plan of care reviewed with JOSE A.
[2019-11-07 07:00] VITALS: BP 121/53
[2019-11-07] MEDS: K and/or MAG REPLACEMENT MC SCH ×2 (08:00→19:01)
[2019-11-07] MEDS: lactose-reduced food (Ensure Enlive) - 237ml bottle PO SCH ×3 (08:00→20:00)
[2019-11-07] MEDS: mineral oil/petrolatum, white cream 113gm jar TP SCH ×2 (08:00→21:04)
[2019-11-07] MEDS: amiodarone 200mg tablet PO SCH ×2 (09:46→21:02)
[2019-11-07] MEDS: lactobacillus rhamnosus 10,000 MMU CELLS/CAPSULE PO SCH ×2 (09:46→21:02)
[2019-11-07] MEDS: lactulose 20gm/30ml cup PO SCH (09:46)
[2019-11-07] MEDS: busPIRone 5mg tablet PO SCH ×2 (09:46→21:02)
[2019-11-07] MEDS: docusate sod 100mg capsule PO SCH ×2 (09:46→21:02)
[2019-11-07] MEDS: pantoprazole 40mg Tablet.DR PO SCH (09:46)
[2019-11-07] MEDS: folic acid 1mg tablet PO SCH (09:47)
[2019-11-07] MEDS: apixaban 5mg tablet PO SCH ×2 (09:47→21:02)
[2019-11-07] MEDS: aspirin 81mg tablet.DR PO SCH (09:47)
[2019-11-07] MEDS: digoxin 125mcg (0.125mg) tablet PO SCH (09:52)
[2019-11-07] MEDS: QUEtiapine 25mg tablet PO SCH (09:54)
[2019-11-07] MEDS: amantadine 100 MG capsule PO SCH ×2 (09:54→21:03)
[2019-11-07] MEDS: carbidoba-levodopa 25-100mg tablet PO SCH ×3 (09:54→21:03)
[2019-11-07] MEDS: multivitamins, therapeutics tablet PO SCH (09:54)
[2019-11-07] MEDS: fludrocortisone acetate 0.1mg tablet PO SCH (09:55)
[2019-11-07 11:00] VITALS: BP 119/49
--- NOTE | 2019-11-07 11:34 | NUR ---
Spoke with Dr. Rebollar regarding the restraint order, instructed to renew the order!!
[2019-11-07 15:00] VITALS: BP 114/51
--- NOTE | 2019-11-07 15:39 | NUR ---
PAGER ID: [phone] MESSAGE: Eze [id number]. The sitter for that room has been d/c'd Can I get an order for a sitter, or the patient is going to fall. Thank you, Halie [phone]
[2019-11-07 18:00] VITALS: BP 115/57
--- NOTE | 2019-11-07 18:47 | NUR ---
Problems reprioritized. Patient report given, questions answered & plan of care reviewed with Mary MAGAÑA. Patient stable at transfer of care.
--- NOTE | 2019-11-07 18:55 | NUR ---
Patient in room PCU 3012. I have received report from Halie MAGAÑA and had the opportunity to ask questions and assume patient care.
[2019-11-07] MEDS: insulin glargine (Lantus) pen - multi-dose SQ SCH (21:00)
[2019-11-07] MEDS: tamsulosin 0.4mg capsule PO SCH (21:02)
[2019-11-07] MEDS: polyethylene glycol 3350 17gm powd pack PO SCH (21:03)
--- NOTE | 2019-11-07 21:36 | NUR ---
PAGER ID: [phone] MESSAGE: Dionisio Galvan [phone]: Patient is combative. Can we have a new order for restraints and an order for a sitter? -Jenifer MAGAÑA [phone]
[2019-11-07 22:00] VITALS: BP 121/58
--- NOTE | 2019-11-07 22:00 | NUR ---
unable to do orthostatic vitals. Pt is to be up with PT only, unsafe for other staff.
[2019-11-08] MEDS: baclofen 10mg tablet PO SCH ×3 (00:30→16:00)
[2019-11-08] MEDS: midodrine tablet 2.5 MG TABLET PO SCH ×3 (00:30→16:00)
[2019-11-08] MEDS: pregabalin 25mg capsule PO SCH ×3 (00:30→16:00)
--- NOTE | 2019-11-08 00:34 | NUR ---
pt pulled out IV. IV site cleaned and covered with gauze.
[2019-11-08 02:00] VITALS: BP 129/67
[2019-11-08 06:00] VITALS: BP 141/62
--- NOTE | 2019-11-08 06:29 | NUR ---
Problems reprioritized. Patient report given, questions answered & plan of care reviewed with Lisha MAGAÑA and Isabel MAGAÑA.
--- NOTE | 2019-11-08 06:35 | NUR ---
Patient in room PCU 3012. I have received report from ARCHANA Hernandez and had the opportunity to ask questions and assume patient care.
--- NOTE | 2019-11-08 06:35 | NUR ---
Patient in room PCU 3012. I have received report from Mary MAGAÑA and had the opportunity to ask questions and assume patient care.
[2019-11-08 07:00] VITALS: BP 141/62
[2019-11-08] MEDS: mineral oil/petrolatum, white cream 113gm jar TP SCH ×2 (08:00→20:00)
[2019-11-08] MEDS: K and/or MAG REPLACEMENT MC SCH ×2 (08:00→20:00)
[2019-11-08] MEDS: lactose-reduced food (Ensure Enlive) - 237ml bottle PO SCH ×3 (08:00→18:00)
[2019-11-08] MEDS: lactulose 20gm/30ml cup PO SCH (08:00)
[2019-11-08] MEDS: aspirin 81mg tablet.DR PO SCH (09:34)
[2019-11-08] MEDS: fludrocortisone acetate 0.1mg tablet PO SCH (09:35)
[2019-11-08] MEDS: amantadine 100 MG capsule PO SCH ×2 (09:35→20:10)
[2019-11-08] MEDS: amiodarone 200mg tablet PO SCH ×2 (09:36→20:10)
[2019-11-08] MEDS: docusate sod 100mg capsule PO SCH ×2 (09:36→20:09)
[2019-11-08] MEDS: carbidoba-levodopa 25-100mg tablet PO SCH ×3 (09:37→20:29)
[2019-11-08] MEDS: busPIRone 5mg tablet PO SCH ×2 (09:37→20:14)
[2019-11-08] MEDS: pantoprazole 40mg Tablet.DR PO SCH (09:38)
[2019-11-08] MEDS: multivitamins, therapeutics tablet PO SCH (09:38)
[2019-11-08] MEDS: apixaban 5mg tablet PO SCH ×2 (09:38→20:10)
[2019-11-08] MEDS: lactobacillus rhamnosus 10,000 MMU CELLS/CAPSULE PO SCH ×2 (09:38→20:11)
[2019-11-08] MEDS: folic acid 1mg tablet PO SCH (09:38)
[2019-11-08] MEDS: QUEtiapine 25mg tablet PO SCH (09:39)
[2019-11-08] MEDS: digoxin 125mcg (0.125mg) tablet PO SCH (09:43)
--- NOTE | 2019-11-08 11:00 | NUR ---
Patient in room YUNG 347. I have received report from ARCHANA WHEATLEY FROM PCU and had the opportunity to ask questions and assume patient care.
--- NOTE | 2019-11-08 11:00 | NUR ---
Orientee documentation: I have reviewed and agree with all interventions, assessments performed and documented by ARCHANA Hall.
--- NOTE | 2019-11-08 11:20 | NUR ---
Problems reprioritized. Patient report given, questions answered & plan of care reviewed with ARCHANA Flores. Infomred RN about pt not being on hyperclycemia protocol, and Dr Rebollar's note stating he wanted to continue Hyperglycemia protocol. Also informed RN that Dr Rebollar would like a UA, either by condom cath or straight cath. Patient stable at this time, all needs met.
--- NOTE | 2019-11-08 12:39 | NUR ---
Orientee Medication Administration: For this medication-pass time frame, all medication were reviewed, dispensed, administered and documented per hospital policy by ARCHANA Hall.
[2019-11-08 15:44] LABS: CLARITY,URINE CLEAR (Clear); COLOR,URINE YELLOW (Yellow); GLUCOSE, URINE NEGATIVE (Neg); KETONES,URINE 15 mg/dl (Neg); LEUKOCYTE ESTERASE ,URINE NEGATIVE (Neg); NITRITES, URINE NEGATIVE (Neg); OCCULT BLOOD,URINE NEGATIVE (Neg); PROTEIN,URINE TRACE mg/dl (Neg)
[2019-11-08 15:54] LABS: UA COLLECTION TYPE NON-SPECIFIED
[2019-11-08 15:57] LABS: SQUAMOUS EPITHELIAL CELL,UR FEW /LPF (FEW)
[2019-11-08 15:58] LABS: RBC,URINE 0-2 /HPF (0-2); WBC,URINE 0-4 /HPF (0-4)
[2019-11-08 15:59] LABS: BACTERIA,URINE FEW /HPF (Neg)
[2019-11-08 16:02] LABS: MUCUS STRANDS FEW /LPF (Neg)
--- NOTE | 2019-11-08 18:00 | NUR ---
Patient in room Y[facility] 347. I have received report from Sandra MAGAÑA and had the opportunity to ask questions and assume patient care.
--- NOTE | 2019-11-08 18:20 | NUR ---
Problems reprioritized. Patient report given, questions answered & plan of care reviewed with ARCHANA GARRISON.
--- NOTE | 2019-11-08 19:04 | NUR ---
FORGOT TO GIVE 1300 AND 1600 MEDS
--- NOTE | 2019-11-08 19:13 | NUR ---
DID TWO RN SKIN CHECK WITH ARCHANA BETANCOURT, FORGOT TO CHART: VARIOUS BRUISES ON BODY, LEFT HAND SKIN TEAR, SCABBED AREA ON INDEX FINGER KNUCKLE, SCABBED AREA ON KNUCKLE OF SECOND TOE ON LEFT SIDE, 3 SKIN TEARS ON RIGHT ALANIS AND CALF, SACRUM AREA REDDENED Addendum: 11/08/19 at 6 by Sandra Mulligan RN Amended: Links added.
[2019-11-08 20:00] VITALS: BP 116/61
[2019-11-08] MEDS: tamsulosin 0.4mg capsule PO SCH (20:13)
[2019-11-08] MEDS: polyethylene glycol 3350 17gm powd pack PO SCH (20:25)
[2019-11-08] MEDS: insulin glargine (Lantus) pen - multi-dose SQ SCH (21:00)
[2019-11-09] VITALS: BP 111/58
[2019-11-09] MEDS: midodrine tablet 2.5 MG TABLET PO SCH ×3 (03:30→17:13)
[2019-11-09] MEDS: pregabalin 25mg capsule PO SCH ×3 (03:30→17:13)
[2019-11-09] MEDS: baclofen 10mg tablet PO SCH ×3 (04:00→17:13)
--- NOTE | 2019-11-09 04:00 | NUR ---
Lyrica, Lioresal, and midodrine HCL missed at 0000 MD notified, patient has been resting and sound asleep BP checked 128/60
--- NOTE | 2019-11-09 06:25 | NUR ---
Problems reprioritized. Patient report given, questions answered & plan of care reviewed with Sandra MAGAÑA.
[2019-11-09 07:00] VITALS: BP 135/75
[2019-11-09] MEDS: lactulose 20gm/30ml cup PO SCH (07:51)
[2019-11-09] MEDS: busPIRone 5mg tablet PO SCH ×2 (07:51→21:46)
[2019-11-09] MEDS: amiodarone 200mg tablet PO SCH ×2 (07:52→21:46)
[2019-11-09] MEDS: QUEtiapine 25mg tablet PO SCH (07:52)
[2019-11-09] MEDS: folic acid 1mg tablet PO SCH (07:52)
[2019-11-09] MEDS: carbidoba-levodopa 25-100mg tablet PO SCH ×3 (07:52→21:46)
[2019-11-09] MEDS: lactobacillus rhamnosus 10,000 MMU CELLS/CAPSULE PO SCH ×2 (07:52→21:46)
[2019-11-09] MEDS: apixaban 5mg tablet PO SCH ×2 (07:52→21:46)
[2019-11-09] MEDS: digoxin 125mcg (0.125mg) tablet PO SCH (07:55)
[2019-11-09] MEDS: aspirin 81mg tab.chew PO SCH (07:55)
[2019-11-09] MEDS: multivitamins, therapeutics tablet PO SCH (07:55)
[2019-11-09] MEDS: fludrocortisone acetate 0.1mg tablet PO SCH (07:55)
[2019-11-09] MEDS: amantadine 100 MG capsule PO SCH ×2 (07:57→21:47)
[2019-11-09] MEDS: pantoprazole 40mg Tablet.DR PO SCH (07:57)
[2019-11-09] MEDS: docusate sod 100mg capsule PO SCH ×2 (07:57→21:46)
[2019-11-09] MEDS: lactose-reduced food (Ensure Enlive) - 237ml bottle PO SCH ×3 (08:05→18:00)
[2019-11-09] MEDS: mineral oil/petrolatum, white cream 113gm jar TP SCH ×2 (08:15→21:47)
[2019-11-09] MEDS ORDERED: bisacodyl 10mg suppository rectal RC ONE (10:45)
[2019-11-09 11:00] VITALS: BP 118/53
--- NOTE | 2019-11-09 16:26 | NUR ---
PATIENT UNABLE TO STAND UP Addendum: 11/09/19 at 1627 by Sandra Mulligan RN Amended: Links added.
[2019-11-09 18:00] VITALS: BP 124/68
--- NOTE | 2019-11-09 18:15 | NUR ---
Problems reprioritized. Patient report given, questions answered & plan of care reviewed with JANAY GUSTAFSON RN.
--- NOTE | 2019-11-09 18:30 | NUR ---
Patient in room YUNG 347. I have received report from DILIA MAGAÑA and had the opportunity to ask questions and assume patient care.
--- NOTE | 2019-11-09 19:31 | NUR ---
AROUND 0754 WHILE TAKING HEART RATE FOR MED PASS I NOTICED HIS O2 WAS 78, HE DID NOT HAVE HIS OXYGEN WAS OFF, I PUT IT BACK ON AND HIS O2 CAME UP TO 97 ON 2 LITTERS, CHARGE NOTIFIED AND NOTIFIED
[2019-11-09] MEDS: insulin glargine (Lantus) pen - multi-dose SQ SCH (21:00)
[2019-11-09] MEDS: tamsulosin 0.4mg capsule PO SCH (21:47)
[2019-11-09] MEDS: polyethylene glycol 3350 17gm powd pack PO SCH (21:48)
[2019-11-10] VITALS: BP 129/54
[2019-11-10] MEDS: baclofen 10mg tablet PO SCH ×3 (00:45→15:55)
[2019-11-10] MEDS: pregabalin 25mg capsule PO SCH ×3 (00:45→15:57)
[2019-11-10] MEDS: midodrine tablet 2.5 MG TABLET PO SCH ×3 (00:45→15:54)
--- NOTE | 2019-11-10 06:20 | NUR ---
Problems reprioritized. Patient report given, questions answered & plan of care reviewed with LANE MAGAÑA.
[2019-11-10] MEDS: lactulose 20gm/30ml cup PO SCH (08:00)
[2019-11-10] MEDS: aspirin 81mg tab.chew PO SCH (08:38)
[2019-11-10] MEDS: multivitamins, therapeutics tablet PO SCH (08:38)
[2019-11-10] MEDS: QUEtiapine 25mg tablet PO SCH (08:39)
[2019-11-10] MEDS: apixaban 5mg tablet PO SCH ×2 (08:40→21:48)
[2019-11-10] MEDS: digoxin 125mcg (0.125mg) tablet PO SCH (08:40)
[2019-11-10] MEDS: fludrocortisone acetate 0.1mg tablet PO SCH (08:40)
[2019-11-10] MEDS: amantadine 100 MG capsule PO SCH ×2 (08:40→21:48)
[2019-11-10] MEDS: lactobacillus rhamnosus 10,000 MMU CELLS/CAPSULE PO SCH ×2 (08:40→21:51)
[2019-11-10] MEDS: carbidoba-levodopa 25-100mg tablet PO SCH ×3 (08:40→21:49)
[2019-11-10] MEDS: amiodarone 200mg tablet PO SCH ×2 (08:40→21:48)
[2019-11-10] MEDS: docusate sod 100mg capsule PO SCH ×2 (08:40→21:49)
[2019-11-10] MEDS: busPIRone 5mg tablet PO SCH ×2 (08:40→21:48)
[2019-11-10] MEDS: folic acid 1mg tablet PO SCH (08:41)
[2019-11-10] MEDS: lactose-reduced food (Ensure Enlive) - 237ml bottle PO SCH ×3 (08:49→18:37)
[2019-11-10] MEDS: pantoprazole 40mg Tablet.DR PO SCH (08:51)
[2019-11-10] MEDS: mineral oil/petrolatum, white cream 113gm jar TP SCH ×2 (08:53→20:00)
[2019-11-10 11:00] VITALS: BP 101/56
[2019-11-10 18:00] VITALS: BP 94/68
--- NOTE | 2019-11-10 18:41 | NUR ---
Problems reprioritized. Patient report given, questions answered & plan of care reviewed with SUDHEER MAGAÑA.
[2019-11-10] MEDS: insulin glargine (Lantus) pen - multi-dose SQ SCH (21:00)
[2019-11-10] MEDS: polyethylene glycol 3350 17gm powd pack PO SCH (21:45)
[2019-11-10] MEDS: tamsulosin 0.4mg capsule PO SCH (21:48)
[2019-11-11] VITALS: BP 136/69
[2019-11-11] MEDS: baclofen 10mg tablet PO SCH ×4 (01:26→23:36)
[2019-11-11] MEDS: pregabalin 25mg capsule PO SCH ×4 (01:26→23:36)
[2019-11-11] MEDS: midodrine tablet 2.5 MG TABLET PO SCH ×4 (01:26→23:36)
[2019-11-11 07:00] VITALS: BP 129/67
--- NOTE | 2019-11-11 07:19 | NUR ---
Patient in room YUNG 347. I have received report from Franklyn MAGAÑA and had the opportunity to ask questions and assume patient care.
[2019-11-11] MEDS: lactose-reduced food (Ensure Enlive) - 237ml bottle PO SCH ×3 (08:00→18:25)
[2019-11-11] MEDS: mineral oil/petrolatum, white cream 113gm jar TP SCH ×2 (08:00→23:31)
[2019-11-11] MEDS: carbidoba-levodopa 25-100mg tablet PO SCH ×3 (08:00→21:19)
[2019-11-11] MEDS: amantadine 100 MG capsule PO SCH ×2 (08:58→21:18)
[2019-11-11] MEDS: fludrocortisone acetate 0.1mg tablet PO SCH (08:58)
[2019-11-11] MEDS: multivitamins, therapeutics tablet PO SCH (08:58)
[2019-11-11] MEDS: folic acid 1mg tablet PO SCH (08:59)
[2019-11-11] MEDS: amiodarone 200mg tablet PO SCH ×2 (08:59→21:17)
[2019-11-11] MEDS: aspirin 81mg tab.chew PO SCH (08:59)
[2019-11-11] MEDS: QUEtiapine 25mg tablet PO SCH (08:59)
[2019-11-11] MEDS: lactobacillus rhamnosus 10,000 MMU CELLS/CAPSULE PO SCH ×2 (08:59→21:17)
[2019-11-11] MEDS: busPIRone 5mg tablet PO SCH ×2 (09:00→21:17)
[2019-11-11] MEDS: apixaban 5mg tablet PO SCH ×2 (09:00→21:17)
[2019-11-11] MEDS: digoxin 125mcg (0.125mg) tablet PO SCH (09:00)
[2019-11-11] MEDS: lactulose 20gm/30ml cup PO SCH (09:01)
[2019-11-11] MEDS: docusate sod 100mg capsule PO SCH ×2 (09:01→20:00)
[2019-11-11] MEDS: pantoprazole 40mg Tablet.DR PO SCH (09:02)
[2019-11-11 11:00] VITALS: BP 136/77
[2019-11-11 16:53] VITALS: BP_SYST 110; BP_SYST 111; BP_DIAS 49; BP_DIAS 57
--- NOTE | 2019-11-11 16:54 | NUR ---
Orthostaic vitals taken with pt laying flat in bed and then sitting up high in bed, pt cannot complete orthostatic vitals and cannot stand for pt, aware. Addendum: 11/11/19 at 1654 by Prabha CHILEL Amended: Links added.
[2019-11-11 18:00] VITALS: BP 103/52
--- NOTE | 2019-11-11 18:27 | NUR ---
Patient in room YUNG 347. I have received report from ARCHANA Winston and had the opportunity to ask questions and assume patient care with ARCHANA Bundy. Addendum: 11/11/19 at 1827 by Uriah Gutierrez RN Amended: Links added.
--- NOTE | 2019-11-11 18:33 | NUR ---
Problems reprioritized. Patient report given, questions answered & plan of care reviewed with Niharika MAGAÑA and Sita [facility]
--- NOTE | 2019-11-11 18:50 | NUR ---
Patient in room YUNG 346. I have received report from Shahla WALKER and Tish MAGAÑA and had the opportunity to ask questions and assume patient care.
[2019-11-11 20:00] VITALS: BP 103/52
[2019-11-11] MEDS: polyethylene glycol 3350 17gm powd pack PO SCH (21:00)
[2019-11-11] MEDS: insulin glargine (Lantus) pen - multi-dose SQ SCH (21:00)
[2019-11-11] MEDS: tamsulosin 0.4mg capsule PO SCH (21:18)
[2019-11-11] MEDS: traMADol 50MG tablet PO PRN (21:20)
--- NOTE | 2019-11-11 23:46 | NUR ---
turned poc with pillows, pt c/o pain, meds given, hob elevated. took meds with applesauce. Addendum: 11/11/19 at 2346 by Uriah Gutierrez RN Amended: Links added.
[2019-11-12] VITALS: BP 139/51
--- NOTE | 2019-11-12 05:36 | NUR ---
NURSING ASSESSMENT REVIEWED Addendum: 11/12/19 at 0537 by Uriah Gutierrez RN Amended: Links added.
--- NOTE | 2019-11-12 06:38 | NUR ---
Problems reprioritized. Patient report given, questions answered & plan of care reviewed with Sylvie MAGAÑA.
[2019-11-12 07:00] VITALS: BP 115/47
[2019-11-12] MEDS: pregabalin 25mg capsule PO SCH ×2 (08:48→16:01)
[2019-11-12] MEDS: carbidoba-levodopa 25-100mg tablet PO SCH ×3 (08:48→21:23)
[2019-11-12] MEDS: folic acid 1mg tablet PO SCH (08:48)
[2019-11-12] MEDS: midodrine tablet 2.5 MG TABLET PO SCH ×2 (08:49→16:01)
[2019-11-12] MEDS: docusate sod 100mg capsule PO SCH ×2 (08:49→21:25)
[2019-11-12] MEDS: busPIRone 5mg tablet PO SCH ×2 (08:49→21:22)
[2019-11-12] MEDS: amantadine 100 MG capsule PO SCH ×2 (08:49→21:25)
[2019-11-12] MEDS: aspirin 81mg tab.chew PO SCH (08:49)
[2019-11-12] MEDS: lactobacillus rhamnosus 10,000 MMU CELLS/CAPSULE PO SCH ×2 (08:49→21:22)
[2019-11-12] MEDS: amiodarone 200mg tablet PO SCH ×2 (08:50→21:22)
[2019-11-12] MEDS: multivitamins, therapeutics tablet PO SCH (08:50)
[2019-11-12] MEDS: baclofen 10mg tablet PO SCH ×2 (08:50→16:01)
[2019-11-12] MEDS: fludrocortisone acetate 0.1mg tablet PO SCH (08:50)
[2019-11-12] MEDS: digoxin 125mcg (0.125mg) tablet PO SCH (08:50)
[2019-11-12] MEDS: QUEtiapine 25mg tablet PO SCH (08:50)
[2019-11-12] MEDS: mineral oil/petrolatum, white cream 113gm jar TP SCH ×2 (08:50→21:43)
[2019-11-12] MEDS: apixaban 5mg tablet PO SCH ×2 (08:50→21:25)
[2019-11-12] MEDS: lactulose 20gm/30ml cup PO SCH (08:50)
[2019-11-12] MEDS: pantoprazole 40mg Tablet.DR PO SCH (08:51)
[2019-11-12] MEDS: lactose-reduced food (Ensure Enlive) - 237ml bottle PO SCH ×3 (08:55→18:36)
[2019-11-12 12:00] VITALS: BP 93/47
[2019-11-12 18:00] VITALS: BP 108/60
--- NOTE | 2019-11-12 18:30 | NUR ---
Patient in room YUN[facility] 347. I have received report from SUDHEER and had the opportunity to ask questions and assume patient care. ASSUMED CARE OF PT WITH RN STUDENT ANTOINETTE Stokes
[2019-11-12] MEDS: polyethylene glycol 3350 17gm powd pack PO SCH (21:00)
[2019-11-12] MEDS: insulin glargine (Lantus) pen - multi-dose SQ SCH (21:00)
[2019-11-12] MEDS: tamsulosin 0.4mg capsule PO SCH (21:22)
[2019-11-12] MEDS: traMADol 50MG tablet PO PRN (21:24)
[2019-11-12 23:57] VITALS: BP 105/59
[2019-11-13] MEDS: midodrine tablet 2.5 MG TABLET PO SCH ×4 (00:13→23:12)
[2019-11-13] MEDS: baclofen 10mg tablet PO SCH ×4 (00:13→23:11)
[2019-11-13] MEDS: pregabalin 25mg capsule PO SCH ×4 (00:14→23:12)
[2019-11-13] MEDS: fludrocortisone acetate 0.1mg tablet PO SCH (07:57)
[2019-11-13] MEDS: busPIRone 5mg tablet PO SCH ×2 (07:57→20:36)
[2019-11-13] MEDS: apixaban 5mg tablet PO SCH ×2 (07:58→20:36)
[2019-11-13] MEDS: pantoprazole 40mg Tablet.DR PO SCH (07:58)
[2019-11-13] MEDS: digoxin 125mcg (0.125mg) tablet PO SCH (07:58)
[2019-11-13] MEDS: folic acid 1mg tablet PO SCH (07:58)
[2019-11-13] MEDS: multivitamins, therapeutics tablet PO SCH (07:58)
[2019-11-13] MEDS: docusate sod 100mg capsule PO SCH ×2 (07:58→20:36)
[2019-11-13] MEDS: lactobacillus rhamnosus 10,000 MMU CELLS/CAPSULE PO SCH ×2 (07:59→20:36)
[2019-11-13] MEDS: carbidoba-levodopa 25-100mg tablet PO SCH ×3 (07:59→20:36)
[2019-11-13] MEDS: aspirin 81mg tab.chew PO SCH (07:59)
[2019-11-13 08:00] VITALS: BP 116/59
[2019-11-13] MEDS: lactulose 20gm/30ml cup PO SCH (08:00)
[2019-11-13] MEDS: lactose-reduced food (Ensure Enlive) - 237ml bottle PO SCH ×3 (08:00→18:00)
[2019-11-13] MEDS: amantadine 100 MG capsule PO SCH ×2 (08:01→20:36)
[2019-11-13] MEDS: QUEtiapine 25mg tablet PO SCH (08:01)
[2019-11-13] MEDS: amiodarone 200mg tablet PO SCH ×2 (08:01→20:36)
[2019-11-13] MEDS: mineral oil/petrolatum, white cream 113gm jar TP SCH ×2 (08:01→20:38)
[2019-11-13 11:00] VITALS: BP 109/49
[2019-11-13 15:21] LABS: BASOPHILS % (AUTO) 0.3 % (0-1); EOSINOPHILS # (AUTO) 0.3 X10'3 (0-0.9); EOSINOPHILS % (AUTO) 2.5 % (0-6); HEMATOCRIT 27.8 % (42.0-52.0); HEMOGLOBIN 9.1 g/dl (14.0-17.9); LYMPHOCYTES # (AUTO) 1.6 X10'3 (1.1-4.8); LYMPHOCYTES % (AUTO) 15.1 % (21-51); MEAN CORPUSCULAR HEMOGLOBIN 29.7 PG (27.0-31.0); MEAN CORPUSCULAR HGB CONC 32.6 g/dL (33.0-36.5); MEAN CORPUSCULAR VOLUME 91.1 FL (78-98); MEAN PLATELET VOLUME 9.2 FL (7.4-10.4); MONOCYTES # (AUTO) 1.3 X10'3 (0-0.9); MONOCYTES % (AUTO) 12.2 % (2-12); NEUTROPHILS # (AUTO) 7.6 X10'3 (1.8-7.7); NEUTROPHILS % (AUTO) 69.9 % (42-75); PLATELET COUNT 233 X10'3 (140-440); RED BLOOD COUNT 3.05 X10'6 (4.70-6.10); RED CELL DISTRIBUTION WIDTH 15.8 % (11.5-14.5); WHITE BLOOD COUNT 10.8 X10'3 (4.5-11.0)
[2019-11-13 15:41] LABS: ALBUMIN 2.1 G/DL (3.4-5.0); ALBUMIN/GLOBULIN RATIO 0.6 (1.1-1.5); ALKALINE PHOSPHATASE 95 IU/L (46-116); ANION GAP 1 (8-16); ASPARTATE AMINO TRANSFERASE 18 U/L (10-37); BILIRUBIN,TOTAL 0.6 MG/DL (0.1-1.0); BLOOD UREA NITROGEN 33 MG/DL (7-18); BUN/CREATININE RATIO 34.7 (5.4-32.0); CALCIUM 8.9 MG/DL (8.5-10.1); CHLORIDE 113 MMOL/L (99-107); CREATININE 0.95 MG/DL (0.60-1.10); GLUCOSE 131 MG/DL (70-104); POTASSIUM 3.9 MMOL/L (3.5-5.1); SODIUM 150 MMOL/L (135-145); TOTAL PROTEIN 5.8 G/DL (6.4-8.2); eGFR 79 ML/MIN
--- NOTE | 2019-11-13 15:47 | NUR ---
Reassessment: Pt PO 75% avg meals w/ 50-75% avg ONS both continues to fluctuate though overall meeting needs. LBM 11/10. Na 150 today on heart healthy diet; first Na since 11/03. Will continue to monitor. Recommendations: 1) advance diet as medically indicated to regular 2) Ensure Enlive TIDWM 3) Encourage PO intake 4) routine bowel care 5) Weekly scaled wts for wt accuracy Addendum: 11/13/19 at [address] Amended: Links added.
[2019-11-13 15:49] LABS: ALANINE AMINOTRANSFERASE < 6 U/L (12-78)
[2019-11-13] MEDS: piperacillin/tazo 4.5gm/100ml 100 ML IV SCH ×2 (17:10→23:28)
--- NOTE | 2019-11-13 18:20 | NUR ---
WENT IN TO EXAM PT FOLLOWING VERBAL REPORT FROM SUDHEER. PT FOUND SLOUCHED DOWN TO THE BOTTOM OF THE BED WITH HIS OXYGEN OFF. PT DIFFICULT TO AROUSE. 5L NC REPLACED, REPOSITIONED IN THE BED. PT MORE ALERT, HOWEVER OXYGEN SATURATIONS REMAIN 71% ON 5L NC. ENCOURAGED TO COUGH, EXPECTORATED A SMALL AMOUNT OF THICK BROWN SPUTUM. PLACED ON 10L SIMPLE MASK. OXYGEN SATURATIONS REMAIN 78-82. PT PLACED ON 15L NON-REBREATHER. OXYGEN SATURATIONS 88-95%. DR COLÓN PAGED WITH ABOVE INFORMATION. 1839: DR COLÓN RE-PAGED. ORDERS OBTAINED FOR ABG AND BIPAP. PT PLACED ON BIPAP BY RT, ABG OBTAINED. 1944: REPORT CALLED TO ISABEL ON PCU, TRANSFERRED TO ROOM 3018B WITH BIPAP AND RT.
[2019-11-13 18:35] VITALS: BP 106/43
[2019-11-13 19:10] LABS: ABG BASE EXCESS 6.5 mmol/L (-2.0-3.0); ABG HCO3 31.4 mmol/L (22.0-26.0); ABG OXYGEN SATURATION 98.4 % (95-98); ABG PCO2 (T) 45.9 mmHg (35.0-45.0); ABG PH (T) 7.451 (7.350-7.450); ABG PO2 (T) 130.2 mmHg (83-108); ALLEN'S TEST POSITIVE; FCOHb 0.3 % (0.5-1.5); FLOW 15 L/min; FMetHb 0.1 % (0.3-1.12); PATIENT TEMPERATURE 36.5
--- NOTE | 2019-11-13 19:45 | NUR ---
Patient in room YUN[facility] 347. I have received report from Chely MAGAÑA on Surgical and had the opportunity to ask questions and awaiting arrival of patient to the PCU unit.
--- NOTE | 2019-11-13 20:00 | NUR ---
Patient arrived to PCU at this time from surgical. He is on bipap at 60% FIO2. RT repeating ABG at this time. All safety precautions in place. Vitals stable.
[2019-11-13 20:16] LABS: ABG BASE EXCESS 8.8 mmol/L (-2.0-3.0); ABG HCO3 34.2 mmol/L (22.0-26.0); ABG OXYGEN SATURATION 93.8 % (95-98); ABG PCO2 (T) 50.1 mmHg (35.0-45.0); ABG PO2 (T) 67.2 mmHg (83-108); ALLEN'S TEST POSITIVE; FCOHb 0.3 % (0.5-1.5); FMetHb 0.1 % (0.3-1.12); FO2Hb 93.4 % (94-100); PATIENT TEMPERATURE 36.5; TOTAL HEMOGLOBIN 11.1 G/dl (14.0-17.9)
--- NOTE | 2019-11-13 20:25 | NUR ---
Problems reprioritized. Patient report given, questions answered & plan of care reviewed with Rosario MAGAÑA.
--- NOTE | 2019-11-13 20:29 | NUR ---
Rt paged by ARCHANA Bland at 1900 to surgical. Pt was on NRB at 15L, 98%. ABG was done and pt was placed ob Bipap 10/5, 60%. Pt was transferred to PCU, follow up abg showed an increase in CO2. Bipap settings changed to 12/5, 60%. Pt resting comfortably on bipap and will continue to monitor.
[2019-11-13] MEDS: tamsulosin 0.4mg capsule PO SCH (20:37)
[2019-11-13] MEDS: polyethylene glycol 3350 17gm powd pack PO SCH (20:37)
[2019-11-13] MEDS: insulin glargine (Lantus) pen - multi-dose SQ SCH (20:38)
--- NOTE | 2019-11-13 22:30 | NUR ---
Pt removing bipap from face. Attempting to redirect and educate.
[2019-11-14] VITALS (8 sets, daily range): BP systolic 97–122; BP diastolic 33–67
[2019-11-14] MEDS: traMADol 50MG tablet PO PRN (00:18)
--- NOTE | 2019-11-14 00:56 | NUR ---
Pt continues to remove bipap and at this point is refusing to let staff put back on. Dr. Dalila chaves. Pt is confused. Will continue to attempt to get pt to wear bipap.
--- NOTE | 2019-11-14 07:00 | NUR ---
Patient in room PCU 3018. I have received report from ARCHANA dominguez and had the opportunity to ask questions and assume patient care.
[2019-11-14] MEDS: mineral oil/petrolatum, white cream 113gm jar TP SCH ×2 (08:00→20:00)
[2019-11-14] MEDS: lactose-reduced food (Ensure Enlive) - 237ml bottle PO SCH ×3 (08:00→18:00)
[2019-11-14 08:08] LABS: ALBUMIN 2.2 G/DL (3.4-5.0); ANION GAP 5 (8-16); BLOOD UREA NITROGEN 35 MG/DL (7-18); BUN/CREATININE RATIO 32.4 (5.4-32.0); CALCIUM 9.1 MG/DL (8.5-10.1); CHLORIDE 111 MMOL/L (99-107); CREATININE 1.08 MG/DL (0.60-1.10); GLUCOSE 119 MG/DL (70-104); POTASSIUM 3.8 MMOL/L (3.5-5.1); SODIUM 151 MMOL/L (135-145); TOTAL CARBON DIOXIDE 34.7 MMOL/L (24-32); eGFR 68 ML/MIN
[2019-11-14] MEDS: amantadine 100 MG capsule PO SCH ×2 (08:32→22:33)
[2019-11-14] MEDS: amiodarone 200mg tablet PO SCH ×2 (08:32→22:34)
[2019-11-14] MEDS: busPIRone 5mg tablet PO SCH ×2 (08:33→22:35)
[2019-11-14] MEDS: midodrine tablet 2.5 MG TABLET PO SCH ×2 (08:33→16:31)
[2019-11-14] MEDS: pregabalin 25mg capsule PO SCH ×2 (08:33→16:30)
[2019-11-14] MEDS: apixaban 5mg tablet PO SCH ×2 (08:34→22:35)
[2019-11-14] MEDS: fludrocortisone acetate 0.1mg tablet PO SCH (08:34)
[2019-11-14] MEDS: pantoprazole 40mg Tablet.DR PO SCH (08:35)
[2019-11-14] MEDS: baclofen 10mg tablet PO SCH ×2 (08:35→16:30)
[2019-11-14] MEDS: folic acid 1mg tablet PO SCH (08:35)
[2019-11-14] MEDS: QUEtiapine 25mg tablet PO SCH (08:35)
[2019-11-14] MEDS: lactobacillus rhamnosus 10,000 MMU CELLS/CAPSULE PO SCH ×2 (09:12→22:32)
[2019-11-14] MEDS: carbidoba-levodopa 25-100mg tablet PO SCH ×3 (09:12→22:33)
[2019-11-14] MEDS: multivitamins, therapeutics tablet PO SCH (09:12)
[2019-11-14] MEDS: aspirin 81mg tab.chew PO SCH (09:12)
[2019-11-14] MEDS: digoxin 125mcg (0.125mg) tablet PO SCH (09:12)
[2019-11-14] MEDS: docusate sod 100mg capsule PO SCH ×2 (09:13→22:33)
[2019-11-14] MEDS: lactulose 20gm/30ml cup PO SCH (09:13)
[2019-11-14] MEDS: piperacillin/tazo 4.5gm/100ml 100 ML IV SCH ×2 (12:06→16:30)
--- NOTE | 2019-11-14 18:20 | NUR ---
Problems reprioritized. Patient report given, questions answered & plan of care reviewed with ARCHANA Berumen.
--- NOTE | 2019-11-14 19:59 | NUR ---
Patient in room PCU 3018. I have received report from ARCHANA Mora and had the opportunity to ask questions and assume patient care.
[2019-11-14] MEDS: polyethylene glycol 3350 17gm powd pack PO SCH (21:00)
[2019-11-14] MEDS: insulin glargine (Lantus) pen - multi-dose SQ SCH (21:00)
[2019-11-14] MEDS: tamsulosin 0.4mg capsule PO SCH (22:35)
[2019-11-15] MEDS: midodrine tablet 2.5 MG TABLET PO SCH ×3 (00:37→15:34)
[2019-11-15] MEDS: baclofen 10mg tablet PO SCH ×3 (00:37→15:34)
[2019-11-15] MEDS: pregabalin 25mg capsule PO SCH ×3 (00:37→15:33)
[2019-11-15] MEDS: piperacillin/tazo 4.5gm/100ml 100 ML IV SCH ×3 (00:45→15:33)
[2019-11-15 01:05] VITALS: BP 104/44
--- NOTE | 2019-11-15 04:28 | NUR ---
Patient is more agitated this am. Trying to take Bipap off and high flow nasal canula.
[2019-11-15 06:00] VITALS: BP 97/49
[2019-11-15 06:00] LABS: ALBUMIN/GLOBULIN RATIO 0.5 (1.1-1.5); ALKALINE PHOSPHATASE 98 IU/L (46-116); ANION GAP 8 (8-16); ASPARTATE AMINO TRANSFERASE 24 U/L (10-37); BILIRUBIN,TOTAL 0.8 MG/DL (0.1-1.0); BLOOD UREA NITROGEN 38 MG/DL (7-18); BUN/CREATININE RATIO 32.8 (5.4-32.0); CHLORIDE 114 MMOL/L (99-107); CREATININE 1.16 MG/DL (0.60-1.10); GLUCOSE 125 MG/DL (70-104); POTASSIUM 3.3 MMOL/L (3.5-5.1); TOTAL PROTEIN 6.2 G/DL (6.4-8.2); eGFR 62 ML/MIN
[2019-11-15 06:02] LABS: SODIUM 157 MMOL/L (135-145)
[2019-11-15 06:25] LABS: ALANINE AMINOTRANSFERASE 6 U/L (12-78)
--- NOTE | 2019-11-15 06:30 | NUR ---
Patient in room PCU 3018. I have received report from ARCHANA Berumen and had the opportunity to ask questions and assume patient care.
--- NOTE | 2019-11-15 06:33 | NUR ---
Problems reprioritized. Patient report given, questions answered & plan of care reviewed with ARCHANA Red.
--- NOTE | 2019-11-15 06:36 | NUR ---
Sent to [facility] PAGER ID: [phone] MESSAGE: ROOM 3018 b Dionisio Galvan: FYI patient has critical sodium of 157 Dayshift nurse informed. Thanks, [id number] [place]
[2019-11-15] MEDS: apixaban 5mg tablet PO SCH ×3 (07:51→20:05)
[2019-11-15] MEDS: folic acid 1mg tablet PO SCH (07:51)
[2019-11-15] MEDS: multivitamins, therapeutics tablet PO SCH (07:51)
[2019-11-15] MEDS: aspirin 81mg tab.chew PO SCH (07:51)
[2019-11-15] MEDS: busPIRone 5mg tablet PO SCH ×3 (07:52→20:05)
[2019-11-15] MEDS: fludrocortisone acetate 0.1mg tablet PO SCH (07:52)
[2019-11-15] MEDS: pantoprazole 40mg Tablet.DR PO SCH (07:52)
[2019-11-15] MEDS: docusate sod 100mg capsule PO SCH ×3 (07:54→20:05)
[2019-11-15] MEDS: lactobacillus rhamnosus 10,000 MMU CELLS/CAPSULE PO SCH ×3 (07:54→20:05)
[2019-11-15] MEDS: carbidoba-levodopa 25-100mg tablet PO SCH ×4 (07:54→20:55)
[2019-11-15] MEDS: digoxin 125mcg (0.125mg) tablet PO SCH (07:54)
[2019-11-15] MEDS: amantadine 100 MG capsule PO SCH ×3 (07:54→20:05)
[2019-11-15] MEDS: QUEtiapine 25mg tablet PO SCH (07:54)
[2019-11-15] MEDS: amiodarone 200mg tablet PO SCH (07:54)
[2019-11-15] MEDS: lactulose 20gm/30ml cup PO SCH (07:55)
[2019-11-15] MEDS: lactose-reduced food (Ensure Enlive) - 237ml bottle PO SCH ×3 (08:00→18:00)
[2019-11-15] MEDS: mineral oil/petrolatum, white cream 113gm jar TP SCH ×2 (08:00→20:00)
[2019-11-15] MEDS ORDERED: sodium chloride 0.45% 1,000 ML IV SCH (08:15)
--- NOTE | 2019-11-15 08:27 | NUR ---
PAGER ID: [phone] MESSAGE: [id number]. PT. VARGHESE PARRISH. CAN WE GET A SITTER ORDER FOR HIM? PT. KEEPS PULLING OFF HIS HIGH FLOW AND BIPAP AND DESATS INTO THE 70s. PT. ALSO TRIES TO WIGGLE OUT OF BED. THANK YOU. MIKE [phone]
[2019-11-15 11:00] VITALS: BP 94/35
[2019-11-15 14:05] LABS: BASOPHILS % (AUTO) 0.3 % (0-1); EOSINOPHILS # (AUTO) 0.2 X10'3 (0-0.9); EOSINOPHILS % (AUTO) 1.5 % (0-6); HEMATOCRIT 27.8 % (42.0-52.0); HEMOGLOBIN 8.8 g/dl (14.0-17.9); LYMPHOCYTES # (AUTO) 1.9 X10'3 (1.1-4.8); LYMPHOCYTES % (AUTO) 16.9 % (21-51); MEAN CORPUSCULAR HEMOGLOBIN 29.1 PG (27.0-31.0); MEAN CORPUSCULAR HGB CONC 31.8 g/dL (33.0-36.5); MEAN CORPUSCULAR VOLUME 91.5 FL (78-98); MEAN PLATELET VOLUME 9.6 FL (7.4-10.4); MONOCYTES # (AUTO) 1.5 X10'3 (0-0.9); MONOCYTES % (AUTO) 13.5 % (2-12); NEUTROPHILS # (AUTO) 7.6 X10'3 (1.8-7.7); NEUTROPHILS % (AUTO) 67.8 % (42-75); PLATELET COUNT 259 X10'3 (140-440); RED BLOOD COUNT 3.04 X10'6 (4.70-6.10); RED CELL DISTRIBUTION WIDTH 15.7 % (11.5-14.5); WHITE BLOOD COUNT 11.2 X10'3 (4.5-11.0)
--- NOTE | 2019-11-15 14:14 | NUR ---
PAGER ID: [phone] MESSAGE: rm. [id number]. NEGRA pt. Dionisio Galvan. pt. is unable to be taken off of BIPAP without stating in the 70son high flow. at this time, pt. won't be able to eat. Kyra [phone]
[2019-11-15 14:24] LABS: ALBUMIN 1.9 G/DL (3.4-5.0); ANION GAP 8 (8-16); BLOOD UREA NITROGEN 40 MG/DL (7-18); BUN/CREATININE RATIO 30.5 (5.4-32.0); CHLORIDE 116 MMOL/L (99-107); CREATININE 1.31 MG/DL (0.60-1.10); GLUCOSE 142 MG/DL (70-104); POTASSIUM 3.5 MMOL/L (3.5-5.1); TOTAL CARBON DIOXIDE 33.6 MMOL/L (24-32); eGFR 54 ML/MIN
[2019-11-15 14:30] LABS: SODIUM 158 MMOL/L (135-145)
[2019-11-15 15:00] VITALS: BP 72/57
[2019-11-15] MEDS: dextrose 5%-water 1,000 ML IV SCH ×2 (15:25→22:39)
[2019-11-15 15:35] LABS: ABG BASE EXCESS 8.5 mmol/L (-2.0-3.0); ABG HCO3 33.3 mmol/L (22.0-26.0); ABG OXYGEN SATURATION 86.6 % (95-98); ABG PCO2 (T) 48.3 mmHg (35.0-45.0); ABG PH (T) 7.457 (7.350-7.450); ABG PO2 (T) 53.2 mmHg (83-108); ALLEN'S TEST POSITIVE; FCOHb 0.3 % (0.5-1.5); FMetHb 0.3 % (0.3-1.12); FO2Hb 86.1 % (94-100); RESPIRATORY RATE 12 b/min; TOTAL HEMOGLOBIN 9.4 G/dl (14.0-17.9)
--- NOTE | 2019-11-15 18:14 | NUR ---
Problems reprioritized. Patient report given, questions answered & plan of care reviewed with ARCHANA Leon.
[2019-11-15] MEDS ORDERED: methylPREDNISolone sod succ 125mg/2ml vial IV ONE (18:15)
[2019-11-15 19:00] VITALS: BP 91/54
--- NOTE | 2019-11-15 19:00 | NUR ---
Received report from primary care nurse Edward MAGAÑA. Assumed patient care. Patient is resting on Bipap. Sitter is at the bedside.
--- NOTE | 2019-11-15 19:03 | NUR ---
Problems reprioritized. Patient report given, questions answered & plan of care reviewed with Susan MAGAÑA.
[2019-11-15] MEDS: tamsulosin 0.4mg capsule PO SCH ×2 (20:05→20:55)
[2019-11-15] MEDS: polyethylene glycol 3350 17gm powd pack PO SCH ×2 (20:05→20:55)
[2019-11-15] MEDS: ipratropium/albuterol 3ml nebule NEB SCH (20:07)
--- NOTE | 2019-11-15 20:15 | NUR ---
Paged MD COLÓN patient is pocketing medications and is not even swallowing applesauce bites. Spits everything out.
[2019-11-15] MEDS: insulin glargine (Lantus) pen - multi-dose SQ SCH (20:55)
[2019-11-15 23:00] VITALS: BP 120/64
[2019-11-16] VITALS (17 sets, daily range): BP systolic 108–166; BP diastolic 31–77
--- NOTE | 2019-11-16 00:08 | NUR ---
Paged regarding patient thrashing around in bed ripping off bipap. Pending call back. Sitter and RT with patient
--- NOTE | 2019-11-16 00:19 | NUR ---
Obtained new orders for Ativan x1. Informed MD patient didnt take any of his PO medications.
[2019-11-16] MEDS ORDERED: LORazepam 2 mg/ml vial IV ONE (00:20)
[2019-11-16] MEDS: methylPREDNISolone sod succ 125mg/2ml vial IV SCH ×3 (00:36→15:35)
[2019-11-16] MEDS: piperacillin/tazo 4.5gm/100ml 100 ML IV SCH ×3 (00:40→17:57)
[2019-11-16] MEDS: ipratropium/albuterol 3ml nebule NEB SCH ×4 (03:16→20:02)
[2019-11-16] MEDS: dextrose 5%-water 1,000 ML IV SCH ×3 (05:16→21:51)
--- NOTE | 2019-11-16 06:19 | NUR ---
Patient in room PCU 3012. I have received report from ARCHANA Davis and had the opportunity to ask questions and assume patient care.
--- NOTE | 2019-11-16 06:38 | NUR ---
Reported off to Robyn MAGAÑA. Patient is awake and alert on Bipap. Sitter is at the bedside.
--- NOTE | 2019-11-16 07:04 | NUR ---
PAGER ID: [phone] MESSAGE: [phone]: Dionisio Galvan - Pt is getting aggressive and swinging at sitter. Anxious this morning. May I have an order for PRN Ativan? Kindly advise! -Robyn [phone]
[2019-11-16] MEDS: pantoprazole 40mg Tablet.DR PO SCH (07:30)
[2019-11-16] MEDS: mineral oil/petrolatum, white cream 113gm jar TP SCH ×2 (08:00→20:00)
[2019-11-16] MEDS: midodrine tablet 2.5 MG TABLET PO SCH ×2 (08:00)
[2019-11-16] MEDS: folic acid 1mg tablet PO SCH (08:00)
[2019-11-16] MEDS: busPIRone 5mg tablet PO SCH ×2 (08:00→19:54)
[2019-11-16] MEDS: multivitamins, therapeutics tablet PO SCH (08:00)
[2019-11-16] MEDS: baclofen 10mg tablet PO SCH ×2 (08:00)
[2019-11-16] MEDS ORDERED: amiodarone 200mg tablet PO SCH (08:00)
[2019-11-16] MEDS: QUEtiapine 25mg tablet PO SCH (08:00)
[2019-11-16] MEDS: apixaban 5mg tablet PO SCH (08:00)
[2019-11-16] MEDS: amantadine 100 MG capsule PO SCH ×2 (08:00→20:06)
[2019-11-16] MEDS: methylnaltrexone br 12mg/0.6ml inj***SubQ only SQ SCH (08:00)
[2019-11-16] MEDS: lactobacillus rhamnosus 10,000 MMU CELLS/CAPSULE PO SCH ×2 (08:00→20:06)
[2019-11-16] MEDS: docusate sod 100mg capsule PO SCH ×2 (08:00→19:57)
[2019-11-16] MEDS: lactose-reduced food (Ensure Enlive) - 237ml bottle PO SCH ×3 (08:00→18:00)
[2019-11-16] MEDS: lactulose 20gm/30ml cup PO SCH (08:00)
[2019-11-16] MEDS: pregabalin 25mg capsule PO SCH ×3 (08:00→16:00)
[2019-11-16] MEDS: carbidoba-levodopa 25-100mg tablet PO SCH ×3 (08:00→14:49)
[2019-11-16] MEDS: aspirin 81mg tab.chew PO SCH (08:30)
[2019-11-16] MEDS: fludrocortisone acetate 0.1mg tablet PO SCH (08:30)
[2019-11-16] MEDS: digoxin 250mcg/ml 2ml ampule IV SCH (09:20)
[2019-11-16] MEDS ORDERED: amiodarone 50MG/ML inj IV SCH (09:20)
[2019-11-16 09:22] LABS: BASOPHILS % (AUTO) 0.1 % (0-1); EOSINOPHILS % (AUTO) 0 % (0-6); HEMATOCRIT 26.9 % (42.0-52.0); HEMOGLOBIN 8.8 g/dl (14.0-17.9); LYMPHOCYTES # (AUTO) 0.6 X10'3 (1.1-4.8); LYMPHOCYTES % (AUTO) 5.8 % (21-51); MEAN CORPUSCULAR HEMOGLOBIN 29.8 PG (27.0-31.0); MEAN CORPUSCULAR HGB CONC 32.7 g/dL (33.0-36.5); MEAN CORPUSCULAR VOLUME 91.1 FL (78-98); MEAN PLATELET VOLUME 9.9 FL (7.4-10.4); MONOCYTES # (AUTO) 0.3 X10'3 (0-0.9); MONOCYTES % (AUTO) 3.3 % (2-12); NEUTROPHILS # (AUTO) 9.1 X10'3 (1.8-7.7); NEUTROPHILS % (AUTO) 90.8 % (42-75); PLATELET COUNT 259 X10'3 (140-440); RED BLOOD COUNT 2.95 X10'6 (4.70-6.10); RED CELL DISTRIBUTION WIDTH 15.8 % (11.5-14.5); WHITE BLOOD COUNT 10.1 X10'3 (4.5-11.0)
[2019-11-16] MEDS ORDERED: LORazepam 2 mg/ml vial IV PRN ×2 (09:30→14:30)
[2019-11-16] MEDS ORDERED: ziprasidone IM 20mg inj **IM only IM PRN (09:35)
[2019-11-16 09:39] LABS: ALANINE AMINOTRANSFERASE 27 U/L (12-78); ALBUMIN 1.9 G/DL (3.4-5.0); ALBUMIN/GLOBULIN RATIO 0.5 (1.1-1.5); ALKALINE PHOSPHATASE 97 IU/L (46-116); ANION GAP 5 (8-16); ASPARTATE AMINO TRANSFERASE 27 U/L (10-37); BILIRUBIN,TOTAL 0.7 MG/DL (0.1-1.0); BLOOD UREA NITROGEN 35 MG/DL (7-18); BUN/CREATININE RATIO 30.7 (5.4-32.0); CALCIUM 8.4 MG/DL (8.5-10.1); CHLORIDE 107 MMOL/L (99-107); CREATININE 1.14 MG/DL (0.60-1.10); GLUCOSE 188 MG/DL (70-104); POTASSIUM 3.2 MMOL/L (3.5-5.1); SODIUM 146 MMOL/L (135-145); TOTAL CARBON DIOXIDE 33.7 MMOL/L (24-32); TOTAL PROTEIN 6.1 G/DL (6.4-8.2); eGFR 64 ML/MIN
--- NOTE | 2019-11-16 09:48 | NUR ---
New orders for chest CT w/o contrast, ativan 0.5 mg IV PRn q. 4 hours, restraint renewal order.
--- NOTE | 2019-11-16 12:19 | NUR ---
PAGER ID: [phone] MESSAGE: [id number]: Dionisio Galvan - May we put pt on K+ protocol?, K was 3.2. And may I have a 1mg of Ativan IV PRN 0.5mg had no effect on pt -Robyn [phone]
[2019-11-16] MEDS ORDERED: potassium Cl 20 mEq SR tablet PO PRN ×4 (14:30→17:55)
[2019-11-16] MEDS ORDERED: potassium CL 10mEq/100ml bag 100 ML IV PRN ×2 (14:30)
[2019-11-16 14:55] LABS: ABG BASE EXCESS 5.4 mmol/L (-2.0-3.0); ABG HCO3 29.4 mmol/L (22.0-26.0); ABG OXYGEN SATURATION 79.4 % (95-98); ABG PCO2 (T) 40.6 mmHg (35.0-45.0); ABG PH (T) 7.478 (7.350-7.450); ABG PO2 (T) 45.5 mmHg (83-108); ALLEN'S TEST POSITIVE; FCOHb 0.3 % (0.5-1.5); FMetHb 0.1 % (0.3-1.12); FO2Hb 79.1 % (94-100); RESPIRATORY RATE 12 b/min; TOTAL HEMOGLOBIN 8.7 G/dl (14.0-17.9)
--- NOTE | 2019-11-16 15:06 | NUR ---
PAGER ID: [phone] MESSAGE: [id number]: Dionisio Galvan - ABGs came back PO2 45.5 from 53.2 yesterday. Hgb 8.7 from 9.4 yesterday -Robyn [phone]
--- NOTE | 2019-11-16 15:09 | NUR ---
PAGER ID: [phone] MESSAGE: [id number] SHIVANI RYAN CALLED. DEBI MCDONOUGH
--- NOTE | 2019-11-16 15:10 | NUR ---
DR LARSON AT BEDSIDE. PAGER NUMBER WE WERE CONTACTING WAS NOT CORRECT.
[2019-11-16 15:26] LABS: MEAN CORPUSCULAR HEMOGLOBIN 29.4 PG (27.0-31.0); MEAN CORPUSCULAR HGB CONC 32.2 g/dL (33.0-36.5); MEAN CORPUSCULAR VOLUME 91.3 FL (78-98); PLATELET COUNT 257 X10'3 (140-440); RED BLOOD COUNT 2.74 X10'6 (4.70-6.10); RED CELL DISTRIBUTION WIDTH 15.4 % (11.5-14.5)
--- NOTE | 2019-11-16 15:33 | NUR ---
PAGER ID: [phone] MESSAGE: [id number]: Dionisio Galvan - Would you like for me to give pts carbdopa and PM meds still? -Robyn [phone]
--- NOTE | 2019-11-16 16:35 | NUR ---
Pt transferred to ICU via [facility]
[2019-11-16] MEDS ORDERED: midazolam 2 mg/2 ml injection ONE ×2 (16:52→17:14)
[2019-11-16] MEDS ORDERED: etomidate 2mg/ml inj. IV ONE ×2 (17:05→17:30)
[2019-11-16] MEDS ORDERED: MIDAZolam inj 50 MG in normal saline 50ml IV soln 40 ML IV SCH (17:05)
[2019-11-16] MEDS ORDERED: normal saline 1000ml 1,000 ML IVB ONE (17:30)
[2019-11-16] MEDS: midazolam 100mg in NS 100 ML INFUSION IV PRN (17:38)
[2019-11-16] MEDS: FENTANYL-0.9 % NACL/PF 100 ML IV PRN (17:38)
[2019-11-16 17:41] LABS: ABG BASE EXCESS 2.1 mmol/L (-2.0-3.0); ABG HCO3 26.5 mmol/L (22.0-26.0); ABG OXYGEN SATURATION 86.3 % (95-98); ABG PCO2 (T) 40.2 mmHg (35.0-45.0); ABG PH (T) 7.437 (7.350-7.450); ABG PO2 (T) 55.1 mmHg (83-108); FCOHb 0.3 % (0.5-1.5); FMetHb 0.2 % (0.3-1.12); FO2Hb 85.9 % (94-100); PEEP 5 cm H2O; RESPIRATORY RATE 20 b/min; TIDAL VOLUME 400 mL; TOTAL HEMOGLOBIN 7.5 G/dl (14.0-17.9)
[2019-11-16] MEDS ORDERED: magnesium Cl slow-release 64mg tablet PO PRN (17:55)
[2019-11-16] MEDS ORDERED: magnesium 4gm in 100ml NS 100 ML IV PRN (17:55)
[2019-11-16] MEDS: K, MAG and/or Phos replacement - Verify level? MC SCH (17:55)
[2019-11-16] MEDS ORDERED: magnesium hydroxide 30ml (MOM) UD suspension PO PRN (17:55)
[2019-11-16] MEDS ORDERED: sodium phosphate inj. 30 MMOL in dextrose 5%-water 250 ML IV PRN (17:55)
[2019-11-16] MEDS ORDERED: sodium phosphate inj. 15 MMOL in dextrose 5%-water 250 ML IV PRN (17:55)
[2019-11-16] MEDS ORDERED: Neutra Phos packet PO PRN (17:55)
[2019-11-16] MEDS ORDERED: ipratropium/albuterol 3ml nebule NEB PRN (17:55)
[2019-11-16] MEDS ORDERED: acetaminophen 325mg tablet PO PRN (17:55)
[2019-11-16] MEDS ORDERED: ondansetron/PF 4mg/2ml inj IV PRN (17:55)
[2019-11-16] MEDS ORDERED: magnesium 2GM in 50ml NS 50 ML IV PRN (17:55)
[2019-11-16] MEDS ORDERED: LIDOcaine 2% 10ml TOPICAL JELLY (Urojet) TP ONE (17:55)
[2019-11-16 18:04] LABS: MAGNESIUM 2.2 MG/DL (1.5-2.4); PHOSPHORUS 3.2 MG/DL (2.3-4.5)
[2019-11-16 18:15] LABS: BASOPHILS % (AUTO) 0.1 % (0-1); EOSINOPHILS % (AUTO) 0 % (0-6); LYMPHOCYTES # (AUTO) 0.4 X10'3 (1.1-4.8); LYMPHOCYTES % (AUTO) 2.7 % (21-51); MEAN CORPUSCULAR HEMOGLOBIN 28.9 PG (27.0-31.0); MEAN CORPUSCULAR HGB CONC 32.1 g/dL (33.0-36.5); MEAN CORPUSCULAR VOLUME 90.2 FL (78-98); MONOCYTES # (AUTO) 0.8 X10'3 (0-0.9); MONOCYTES % (AUTO) 6.3 % (2-12); NEUTROPHILS # (AUTO) 12.1 X10'3 (1.8-7.7); NEUTROPHILS % (AUTO) 90.9 % (42-75); PLATELET COUNT 223 X10'3 (140-440); RED BLOOD COUNT 2.25 X10'6 (4.70-6.10); RED CELL DISTRIBUTION WIDTH 15.7 % (11.5-14.5); WHITE BLOOD COUNT 13.3 X10'3 (4.5-11.0)
--- NOTE | 2019-11-16 18:20 | NUR ---
Patient in room ICU 2039. I have received report from Albino MAGAÑA and had the opportunity to ask questions and assume patient care.
--- NOTE | 2019-11-16 18:30 | NUR ---
Problems reprioritized. Patient report given, questions answered & plan of care reviewed with Lizabeth MAGAÑA.
--- NOTE | 2019-11-16 18:30 | NUR ---
Patient in room ICU 2039. I have received report from Albino MAGAÑA, and had the opportunity to ask questions and assume patient care.
--- NOTE | 2019-11-16 18:30 | NUR ---
Shift Summary: Patient arrived to unit at 1645 and placed on monitor. Patient with Bipap and not-following commands. Dr. Mc intubated patient at 1700 followed by IJ and ART line. Chest x-ray confirmed placement; advanced 2cm to 26cm per Dr. Mc. During intubation, large blood clot from airway pulled out by approx the size of a golf ball; sputum sample sent down. MD would like to start ARDs protocol and is aware of patient's decreased saturations. Report given to Lizabeth MAGAÑA with all questions answered.
[2019-11-16 18:41] LABS: HEMATOCRIT 20.3 % (42.0-52.0); HEMOGLOBIN 6.5 g/dl (14.0-17.9)
--- NOTE | 2019-11-16 18:43 | NUR ---
Critical H/H of 6.5/20.3; Dr. Mc aware of low H/H with orders to transfuse x1 PRBC; Page JONES also aware.
[2019-11-16 18:50] LABS: ALANINE AMINOTRANSFERASE 9 U/L (12-78); ALBUMIN 1.7 G/DL (3.4-5.0); ALBUMIN/GLOBULIN RATIO 0.5 (1.1-1.5); ALKALINE PHOSPHATASE 85 IU/L (46-116); ANION GAP 9 (8-16); ASPARTATE AMINO TRANSFERASE 25 U/L (10-37); BILIRUBIN,TOTAL 0.7 MG/DL (0.1-1.0); BLOOD UREA NITROGEN 36 MG/DL (7-18); BUN/CREATININE RATIO 36.7 (5.4-32.0); CALCIUM 7.6 MG/DL (8.5-10.1); CHLORIDE 110 MMOL/L (99-107); CREATININE 0.98 MG/DL (0.60-1.10); GLUCOSE 139 MG/DL (70-104); SODIUM 147 MMOL/L (135-145); TOTAL CARBON DIOXIDE 28.5 MMOL/L (24-32); TOTAL PROTEIN 5.2 G/DL (6.4-8.2); eGFR 76 ML/MIN
--- NOTE | 2019-11-16 18:52 | NUR ---
Problems reprioritized. Patient report given, questions answered & plan of care reviewed with ARCHANA Hobbs.
[2019-11-16 18:54] LABS: PARTIAL THROMBOPLASTIN TIME 37 SECONDS (22-32)
[2019-11-16] MEDS: potassium Cl 20mEq/100mL bag 100 ML IV PRN ×3 (19:06→21:42)
[2019-11-16 19:46] LABS: OXYGEN SATURATION (MIXED VEN) 65.7 % (60-80); PO2 MIXED VENOUS (TEMP COR) 35.4 mmHg (35-46)
[2019-11-16] MEDS: pantoprazole 40 MG vial IV SCH (19:53)
[2019-11-16] MEDS ORDERED: K and/or MAG REPLACEMENT MC SCH (20:00)
[2019-11-16] MEDS ORDERED: acetaminophen 325mg/10.15ml oral unit dose solution OGT PRN ×2 (20:21→20:22)
[2019-11-16] MEDS ORDERED: dextrose ORAL solution 15 GM/59 ML bottle OGT PRN ×2 (20:23)
[2019-11-16] MEDS ORDERED: docusate sodium 100mg/10ml UD cup OGT PRN (20:24)
[2019-11-16] MEDS ORDERED: traMADol 50MG tablet OGT PRN (20:28)
[2019-11-16] MEDS ORDERED: mag hydrox/Alum hydrox/simeth 30ml oral suspension OGT PRN (20:28)
[2019-11-16] MEDS ORDERED: magnesium hydroxide 30ml (MOM) UD suspension OGT PRN (20:29)
[2019-11-16] MEDS ORDERED: potassium Cl 20 mEq SR tablet OGT PRN (20:29)
[2019-11-16] MEDS ORDERED: POTASSIUM BICARB 20meq eff tab 20 MEQ TABLET.EFF OGT PRN ×2 (20:30→20:33)
[2019-11-16] MEDS ORDERED: Neutra Phos packet OGT PRN (20:30)
[2019-11-16] MEDS ORDERED: amantadine 100mg/10ml UD oral solution PO SCH (20:50)
[2019-11-16] MEDS: insulin glargine (Lantus) pen - multi-dose SQ SCH (21:00)
[2019-11-16] MEDS: polyethylene glycol 3350 17gm powd pack OGT SCH (21:37)
[2019-11-16] MEDS: carbidoba-levodopa 25-100mg tablet OGT SCH (21:37)
[2019-11-16 23:25] LABS: HEMATOCRIT 25.7 % (42.0-52.0); HEMOGLOBIN 8.5 g/dl (14.0-17.9); MEAN CORPUSCULAR HEMOGLOBIN 30.1 PG (27.0-31.0); MEAN CORPUSCULAR VOLUME 91.2 FL (78-98); MEAN PLATELET VOLUME 9.9 FL (7.4-10.4); PLATELET COUNT 221 X10'3 (140-440); RED BLOOD COUNT 2.81 X10'6 (4.70-6.10); WHITE BLOOD COUNT 14.2 X10'3 (4.5-11.0)
[2019-11-17] VITALS (28 sets, daily range): BP systolic 110–133; BP diastolic 39–50
[2019-11-17] MEDS: pregabalin 25mg capsule OGT SCH ×3 (00:30→16:14)
[2019-11-17] MEDS: piperacillin/tazo 4.5gm/100ml 100 ML IV SCH ×3 (00:30→16:14)
[2019-11-17 02:50] LABS: BASOPHILS % (AUTO) 0.1 % (0-1); EOSINOPHILS % (AUTO) 0 % (0-6); HEMATOCRIT 23.9 % (42.0-52.0); HEMOGLOBIN 7.9 g/dl (14.0-17.9); LYMPHOCYTES # (AUTO) 0.5 X10'3 (1.1-4.8); MEAN CORPUSCULAR HEMOGLOBIN 29.8 PG (27.0-31.0); MEAN CORPUSCULAR HGB CONC 32.9 g/dL (33.0-36.5); MEAN CORPUSCULAR VOLUME 90.5 FL (78-98); MEAN PLATELET VOLUME 10.4 FL (7.4-10.4); MONOCYTES # (AUTO) 0.7 X10'3 (0-0.9); MONOCYTES % (AUTO) 5.4 % (2-12); NEUTROPHILS # (AUTO) 11.8 X10'3 (1.8-7.7); NEUTROPHILS % (AUTO) 90.5 % (42-75); PLATELET COUNT 219 X10'3 (140-440); RED BLOOD COUNT 2.64 X10'6 (4.70-6.10)
[2019-11-17 03:03] LABS: PARTIAL THROMBOPLASTIN TIME 34 SECONDS (22-32)
[2019-11-17 03:05] LABS: ALANINE AMINOTRANSFERASE 6 U/L (12-78); ALBUMIN 1.7 G/DL (3.4-5.0); ALBUMIN/GLOBULIN RATIO 0.4 (1.1-1.5); ALKALINE PHOSPHATASE 85 IU/L (46-116); ANION GAP 6 (8-16); ASPARTATE AMINO TRANSFERASE 24 U/L (10-37); BILIRUBIN,TOTAL 0.7 MG/DL (0.1-1.0); BLOOD UREA NITROGEN 39 MG/DL (7-18); BUN/CREATININE RATIO 38.2 (5.4-32.0); CALCIUM 7.9 MG/DL (8.5-10.1); CHLORIDE 109 MMOL/L (99-107); CREATININE 1.02 MG/DL (0.60-1.10); GLUCOSE 180 MG/DL (70-104); MAGNESIUM 2.3 MG/DL (1.5-2.4); PHOSPHORUS 3.6 MG/DL (2.3-4.5); SODIUM 144 MMOL/L (135-145); TOTAL CARBON DIOXIDE 29.3 MMOL/L (24-32); TOTAL PROTEIN 5.7 G/DL (6.4-8.2); eGFR 72 ML/MIN
[2019-11-17] MEDS: ipratropium/albuterol 3ml nebule NEB SCH ×4 (03:07→21:09)
[2019-11-17 04:10] LABS: ABG BASE EXCESS 4.2 mmol/L (-2.0-3.0); ABG HCO3 29.1 mmol/L (22.0-26.0); ABG OXYGEN SATURATION 93.1 % (95-98); ABG PH (T) 7.427 (7.350-7.450); ABG PO2 (T) 68.8 mmHg (83-108); FCOHb 0.3 % (0.5-1.5); FMetHb 0.1 % (0.3-1.12); FO2Hb 92.7 % (94-100); PATIENT TEMPERATURE 36.6; PEEP 14 cm H2O; RESPIRATORY RATE 20 b/min; TOTAL HEMOGLOBIN 7.6 G/dl (14.0-17.9)
[2019-11-17] MEDS: FENTANYL-0.9 % NACL/PF 100 ML IV PRN ×2 (04:41→19:42)
--- NOTE | 2019-11-17 06:17 | NUR ---
Problems reprioritized. Patient report given, questions answered & plan of care reviewed with Albino MAGAÑA.
[2019-11-17] MEDS: dextrose 5%-water 1,000 ML IV SCH ×2 (06:40→09:49)
[2019-11-17] MEDS: digoxin 250mcg/ml 2ml ampule IV SCH (06:46)
[2019-11-17] MEDS: pantoprazole 40mg Tablet.DR PO SCH (06:47)
[2019-11-17] MEDS: lactose-reduced food (Ensure Enlive) - 237ml bottle OGT SCH ×3 (06:48→16:47)
[2019-11-17] MEDS: amantadine 100mg/10ml UD oral solution OGT SCH ×2 (08:00→20:00)
[2019-11-17] MEDS: K, MAG and/or Phos replacement - Verify level? MC SCH (08:00)
[2019-11-17] MEDS: mineral oil/petrolatum, white cream 113gm jar TP SCH ×2 (08:00→20:37)
--- NOTE | 2019-11-17 09:06 | NUR ---
called pharmacy to get oral solution of symmetrel for OGT; medication not available, will arrive tomorrow.
[2019-11-17] MEDS: pantoprazole 40 MG vial IV SCH (09:15)
[2019-11-17] MEDS: MULTIVIT-MIN/FERROUS GLUCONATE 9 MG/15 ML LIQUID OGT SCH (09:15)
[2019-11-17] MEDS: carbidoba-levodopa 25-100mg tablet OGT SCH ×3 (09:16→20:38)
[2019-11-17] MEDS: lactulose 20gm/30ml cup OGT SCH (09:16)
[2019-11-17] MEDS: docusate sodium 100mg/10ml UD cup OGT SCH ×2 (09:16→20:37)
[2019-11-17] MEDS: folic acid 1mg tablet OGT SCH (09:17)
[2019-11-17] MEDS: busPIRone 5mg tablet OGT SCH ×2 (09:17→20:37)
[2019-11-17] MEDS: lactobacillus rhamnosus 10,000 MMU CELLS/CAPSULE OGT SCH ×2 (09:17→20:37)
[2019-11-17] MEDS: aspirin 81mg tab.chew OGT SCH (09:17)
[2019-11-17] MEDS: midazolam 100mg in NS 100 ML INFUSION IV PRN (09:57)
--- NOTE | 2019-11-17 12:04 | NUR ---
Tube feeding consult. Patient is intubated, sedated; per MD note on ARDS protocol possibly r/t LLL aspiration. Tube feeding recommendations are below with water flush recs, pt has OG tube. Sodium is now within normal limits with IV dextrose. Pt noted to have severe muscle weakness, severe muscle/fat wasting,meets severe malnutrition criteria. Will continue to follow. Recommendations: 1) Continuous tube feeding per OG tube using Vital AF starting at 30 ml/hr and advance as tolerated by 20 ml q 8 hours to goal rate of 70 ml/hr will provide total volume 1680 ml, 2016 cals, 126 g protein, 1362 ml water. 2) Recommend additional 100 ml water flush q 4 hours for total of 600 ml water flush daily 3) Daily weights, prealbumin q wednesday and 4) routine bowel care 5) When extubated, advance diet as medically indicated to pureed Addendum: 11/17/19 at [address] Amended: Links added.
[2019-11-17] MEDS ORDERED: insulin regular, human U-100 3ml vial - multi-dose SQ SCH (12:30)
[2019-11-17 13:36] LABS: ABG BASE EXCESS 1.1 mmol/L (-2.0-3.0); ABG HCO3 26.3 mmol/L (22.0-26.0); ABG OXYGEN SATURATION 92.1 % (95-98); ABG PCO2 (T) 44.6 mmHg (35.0-45.0); ABG PH (T) 7.389 (7.350-7.450); ABG PO2 (T) 66.5 mmHg (83-108); FCOHb 0.3 % (0.5-1.5); FMetHb 0.1 % (0.3-1.12); FO2Hb 91.7 % (94-100); PEEP 10 cm H2O; RESPIRATORY RATE 20 b/min; TOTAL HEMOGLOBIN 9.8 G/dl (14.0-17.9)
--- NOTE | 2019-11-17 18:30 | NUR ---
Patient in room ICU 2039. I have received report from ARCHANA Posada and had the opportunity to ask questions and assume patient care.
--- NOTE | 2019-11-17 18:39 | NUR ---
Problems reprioritized. Patient report given, questions answered & plan of care reviewed with Stephanie MAGAÑA.
[2019-11-17] MEDS: enoxaparin 60mg/0.6ml syringe SUBCUT SCH (20:38)
[2019-11-17] MEDS: polyethylene glycol 3350 17gm powd pack OGT SCH (20:38)
[2019-11-17] MEDS: insulin glargine (Lantus) pen - multi-dose SQ SCH (20:39)
[2019-11-17] MEDS ORDERED: amantadine 100 MG capsule PO SCH (21:14)
[2019-11-17] MEDS: amantadine 100 MG capsule PO SCH ×2 (21:28→21:30)
[2019-11-18] VITALS (24 sets, daily range): BP systolic 105–142; BP diastolic 38–49
[2019-11-18] MEDS: piperacillin/tazo 4.5gm/100ml 100 ML IV SCH ×3 (00:44→16:09)
[2019-11-18] MEDS: pregabalin 25mg capsule OGT SCH ×3 (00:44→16:09)
[2019-11-18 02:51] LABS: BASOPHILS % (AUTO) 0.1 % (0-1); EOSINOPHILS % (AUTO) 0 % (0-6); HEMATOCRIT 27.8 % (42.0-52.0); HEMOGLOBIN 9.1 g/dl (14.0-17.9); LYMPHOCYTES # (AUTO) 1.1 X10'3 (1.1-4.8); MEAN CORPUSCULAR HEMOGLOBIN 29.5 PG (27.0-31.0); MEAN CORPUSCULAR HGB CONC 32.9 g/dL (33.0-36.5); MEAN CORPUSCULAR VOLUME 89.9 FL (78-98); MEAN PLATELET VOLUME 10.3 FL (7.4-10.4); MONOCYTES # (AUTO) 1.2 X10'3 (0-0.9); MONOCYTES % (AUTO) 8.9 % (2-12); NEUTROPHILS # (AUTO) 11.5 X10'3 (1.8-7.7); PLATELET COUNT 235 X10'3 (140-440); RED BLOOD COUNT 3.09 X10'6 (4.70-6.10); RED CELL DISTRIBUTION WIDTH 15.1 % (11.5-14.5); WHITE BLOOD COUNT 13.8 X10'3 (4.5-11.0)
[2019-11-18 03:04] LABS: ALANINE AMINOTRANSFERASE 6 U/L (12-78); ALBUMIN 1.8 G/DL (3.4-5.0); ALBUMIN/GLOBULIN RATIO 0.5 (1.1-1.5); ALKALINE PHOSPHATASE 84 IU/L (46-116); ANION GAP 4 (8-16); ASPARTATE AMINO TRANSFERASE 25 U/L (10-37); BILIRUBIN,TOTAL 0.8 MG/DL (0.1-1.0); BLOOD UREA NITROGEN 48 MG/DL (7-18); BUN/CREATININE RATIO 42.5 (5.4-32.0); CALCIUM 8.1 MG/DL (8.5-10.1); CHLORIDE 103 MMOL/L (99-107); CREATININE 1.13 MG/DL (0.60-1.10); GLUCOSE 114 MG/DL (70-104); MAGNESIUM 2.5 MG/DL (1.5-2.4); PHOSPHORUS 3.1 MG/DL (2.3-4.5); POTASSIUM 3.2 MMOL/L (3.5-5.1); SODIUM 138 MMOL/L (135-145); TOTAL CARBON DIOXIDE 31.3 MMOL/L (24-32); TOTAL PROTEIN 5.5 G/DL (6.4-8.2); eGFR 64 ML/MIN
[2019-11-18 03:05] LABS: PARTIAL THROMBOPLASTIN TIME 42 SECONDS (22-32)
[2019-11-18] MEDS: ipratropium/albuterol 3ml nebule NEB SCH ×4 (03:05→21:08)
[2019-11-18 03:50] LABS: ABG BASE EXCESS 4.3 mmol/L (-2.0-3.0); ABG HCO3 29.9 mmol/L (22.0-26.0); ABG OXYGEN SATURATION 85.9 % (95-98); ABG PCO2 (T) 46.4 mmHg (35.0-45.0); ABG PH (T) 7.419 (7.350-7.450); ABG PO2 (T) 47.9 mmHg (83-108); FCOHb 0.3 % (0.5-1.5); FMetHb 0.1 % (0.3-1.12); FO2Hb 85.6 % (94-100); PATIENT TEMPERATURE 35.4; PEEP 10 cm H2O; TOTAL HEMOGLOBIN 10.3 G/dl (14.0-17.9)
--- NOTE | 2019-11-18 04:45 | NUR ---
After midnight tube feed residual was so high, tube feed was turned off and 300ml was returned. At 0400 residual/gastric drainage appeared to be stool. Stomach suctioned of an additional 550ml with suction left on low intermittent. Within the last hour, drainage appears to be bloody. Will continue to monitor.
[2019-11-18] MEDS: midazolam 100mg in NS 100 ML INFUSION IV PRN ×2 (04:46→17:08)
[2019-11-18] MEDS: potassium Cl 20mEq/100mL bag 100 ML IV PRN ×2 (05:24→06:47)
[2019-11-18] MEDS: dextrose 5%-water 1,000 ML IV SCH (06:08)
[2019-11-18] MEDS: lactulose 20gm/30ml cup OGT SCH (07:11)
[2019-11-18] MEDS: methylnaltrexone br 12mg/0.6ml inj***SubQ only SQ SCH (07:11)
[2019-11-18] MEDS: MULTIVIT-MIN/FERROUS GLUCONATE 9 MG/15 ML LIQUID OGT SCH (07:11)
[2019-11-18] MEDS: pantoprazole 40 MG vial IV SCH (07:11)
[2019-11-18] MEDS: carbidoba-levodopa 25-100mg tablet OGT SCH ×3 (07:11→21:02)
[2019-11-18] MEDS: busPIRone 5mg tablet OGT SCH ×2 (07:11→20:07)
[2019-11-18] MEDS: docusate sodium 100mg/10ml UD cup OGT SCH ×2 (07:11→20:06)
[2019-11-18] MEDS: folic acid 1mg tablet OGT SCH (07:12)
[2019-11-18] MEDS: lactobacillus rhamnosus 10,000 MMU CELLS/CAPSULE OGT SCH ×2 (07:12→20:06)
[2019-11-18] MEDS: mineral oil/petrolatum, white cream 113gm jar TP SCH ×2 (07:14→20:06)
[2019-11-18] MEDS: amantadine 100 MG capsule PO SCH (08:00)
[2019-11-18] MEDS: digoxin 250mcg/ml 2ml ampule IV SCH (08:00)
[2019-11-18] MEDS: lactose-reduced food (Ensure Enlive) - 237ml bottle OGT SCH ×3 (08:00→17:43)
[2019-11-18] MEDS: K, MAG and/or Phos replacement - Verify level? MC SCH (08:00)
[2019-11-18] MEDS: enoxaparin 60mg/0.6ml syringe SUBCUT SCH (08:00)
[2019-11-18 09:31] LABS: ABG BASE EXCESS 0.8 mmol/L (-2.0-3.0); ABG HCO3 25.5 mmol/L (22.0-26.0); ABG OXYGEN SATURATION 87.3 % (95-98); ABG PCO2 (T) 39.5 mmHg (35.0-45.0); ABG PH (T) 7.423 (7.350-7.450); ABG PO2 (T) 51.9 mmHg (83-108); FCOHb 0.3 % (0.5-1.5); FMetHb 0.2 % (0.3-1.12); FO2Hb 86.9 % (94-100); PATIENT TEMPERATURE 36.1; RESPIRATORY RATE 20 b/min; TIDAL VOLUME 641 mL; TOTAL HEMOGLOBIN 9.9 G/dl (14.0-17.9)
--- NOTE | 2019-11-18 10:00 | NUR ---
Dr. Wilson at bedside to assess patient. MD aware of increased tube feed residuals and that OG suction appeared coffee-ground/bloody; orders for q6h hemograms and D/C Lovenox. Per Dr. Wilson orders to hold nutrition including TPN for this time. Also, MD aware of no bowel movement; would like to start Reglan IV. MD aware of Junctional heart rhythm and increased FiO2. Will continue to monitor.
--- NOTE | 2019-11-18 10:00 | NUR ---
aware of elevated WBC at 30.6; cultures drawn during inspector machine cut glass. No new orders at this time. Addendum: 11/18/19 at 1842 by Stephanie Martines RN Note entered on wrong pt
[2019-11-18] MEDS: aspirin 81mg tab.chew OGT SCH (11:24)
[2019-11-18] MEDS: FENTANYL-0.9 % NACL/PF 100 ML IV PRN ×2 (11:24→23:25)
[2019-11-18] MEDS ORDERED: metoclopramide 5 mg/ml inj IV PRN ×2 (14:00)
[2019-11-18] MEDS: metoclopramide 5 mg/ml inj IV SCH ×2 (14:14→20:06)
[2019-11-18] MEDS: mineral oil/petrolatum ophthal oint EACHEYE SCH ×2 (14:14→20:07)
[2019-11-18 14:21] LABS: HEMATOCRIT 26.9 % (42.0-52.0); HEMOGLOBIN 8.8 g/dl (14.0-17.9); MEAN CORPUSCULAR HEMOGLOBIN 29.5 PG (27.0-31.0); MEAN CORPUSCULAR HGB CONC 32.9 g/dL (33.0-36.5); MEAN CORPUSCULAR VOLUME 89.8 FL (78-98); MEAN PLATELET VOLUME 9.7 FL (7.4-10.4); PLATELET COUNT 230 X10'3 (140-440); RED BLOOD COUNT 2.99 X10'6 (4.70-6.10); RED CELL DISTRIBUTION WIDTH 14.9 % (11.5-14.5); WHITE BLOOD COUNT 11.1 X10'3 (4.5-11.0)
[2019-11-18 15:26] LABS: ABG BASE EXCESS 3.5 mmol/L (-2.0-3.0); ABG HCO3 28.8 mmol/L (22.0-26.0); ABG OXYGEN SATURATION 91.9 % (95-98); ABG PCO2 (T) 45.8 mmHg (35.0-45.0); ABG PH (T) 7.413 (7.350-7.450); ABG PO2 (T) 62.3 mmHg (83-108); FCOHb 0.3 % (0.5-1.5); FMetHb 0.2 % (0.3-1.12); FO2Hb 91.4 % (94-100); PATIENT TEMPERATURE 36.3; PEEP 10 cm H2O; RESPIRATORY RATE 20 b/min; TIDAL VOLUME 495 mL; TOTAL HEMOGLOBIN 9.6 G/dl (14.0-17.9)
--- NOTE | 2019-11-18 18:17 | NUR ---
Problems reprioritized. Patient report given, questions answered & plan of care reviewed with Stephanie MAGAÑA.
[2019-11-18 19:57] LABS: HEMOGLOBIN 9.3 g/dl (14.0-17.9); MEAN CORPUSCULAR HEMOGLOBIN 30.1 PG (27.0-31.0); MEAN CORPUSCULAR HGB CONC 33.3 g/dL (33.0-36.5); MEAN CORPUSCULAR VOLUME 90.6 FL (78-98); MEAN PLATELET VOLUME 9.9 FL (7.4-10.4); PLATELET COUNT 256 X10'3 (140-440); RED BLOOD COUNT 3.09 X10'6 (4.70-6.10); RED CELL DISTRIBUTION WIDTH 15.1 % (11.5-14.5); WHITE BLOOD COUNT 10.9 X10'3 (4.5-11.0)
[2019-11-18] MEDS: polyethylene glycol 3350 17gm powd pack OGT SCH (20:06)
[2019-11-18] MEDS: amantadine 100mg/10ml UD oral solution OGT SCH (20:07)
[2019-11-18] MEDS: insulin glargine (Lantus) pen - multi-dose SQ SCH (20:08)
[2019-11-19] VITALS (24 sets, daily range): BP systolic 112–154; BP diastolic 34–52
[2019-11-19] MEDS: pregabalin 25mg capsule OGT SCH ×3 (00:17→15:36)
[2019-11-19] MEDS: piperacillin/tazo 4.5gm/100ml 100 ML IV SCH ×3 (00:17→15:27)
[2019-11-19 01:25] LABS: BASOPHILS % (AUTO) 0 % (0-1); EOSINOPHILS # (AUTO) 0.3 X10'3 (0-0.9); EOSINOPHILS % (AUTO) 2.5 % (0-6); HEMATOCRIT 29.4 % (42.0-52.0); HEMOGLOBIN 9.6 g/dl (14.0-17.9); LYMPHOCYTES # (AUTO) 1.7 X10'3 (1.1-4.8); LYMPHOCYTES % (AUTO) 14.7 % (21-51); MEAN CORPUSCULAR HEMOGLOBIN 29.6 PG (27.0-31.0); MEAN CORPUSCULAR HGB CONC 32.7 g/dL (33.0-36.5); MEAN CORPUSCULAR VOLUME 90.6 FL (78-98); MEAN PLATELET VOLUME 9.9 FL (7.4-10.4); MONOCYTES % (AUTO) 8.8 % (2-12); NEUTROPHILS # (AUTO) 8.6 X10'3 (1.8-7.7); PLATELET COUNT 265 X10'3 (140-440); RED BLOOD COUNT 3.24 X10'6 (4.70-6.10); RED CELL DISTRIBUTION WIDTH 15.4 % (11.5-14.5); WHITE BLOOD COUNT 11.6 X10'3 (4.5-11.0)
[2019-11-19 01:37] LABS: PARTIAL THROMBOPLASTIN TIME 32 SECONDS (22-32)
[2019-11-19 01:41] LABS: ALANINE AMINOTRANSFERASE 6 U/L (12-78); ALBUMIN 1.8 G/DL (3.4-5.0); ALBUMIN/GLOBULIN RATIO 0.5 (1.1-1.5); ALKALINE PHOSPHATASE 94 IU/L (46-116); ANION GAP 4 (8-16); ASPARTATE AMINO TRANSFERASE 32 U/L (10-37); BILIRUBIN,TOTAL 1.2 MG/DL (0.1-1.0); BLOOD UREA NITROGEN 30 MG/DL (7-18); BUN/CREATININE RATIO 33.3 (5.4-32.0); CHLORIDE 107 MMOL/L (99-107); GLUCOSE 110 MG/DL (70-104); MAGNESIUM 2.4 MG/DL (1.5-2.4); PHOSPHORUS 2.8 MG/DL (2.3-4.5); POTASSIUM 3.6 MMOL/L (3.5-5.1); SODIUM 141 MMOL/L (135-145); TOTAL CARBON DIOXIDE 29.9 MMOL/L (24-32); TOTAL PROTEIN 5.5 G/DL (6.4-8.2); eGFR 84 ML/MIN
[2019-11-19] MEDS: mineral oil/petrolatum ophthal oint EACHEYE SCH ×4 (02:13→19:23)
[2019-11-19] MEDS: metoclopramide 5 mg/ml inj IV SCH ×4 (02:14→19:23)
[2019-11-19] MEDS: midazolam 100mg in NS 100 ML INFUSION IV PRN ×3 (02:30→19:22)
[2019-11-19 02:55] LABS: ABG BASE EXCESS 2.9 mmol/L (-2.0-3.0); ABG HCO3 28.6 mmol/L (22.0-26.0); ABG PCO2 (T) 46.4 mmHg (35.0-45.0); ABG PH (T) 7.401 (7.350-7.450); ABG PO2 (T) 47.8 mmHg (83-108); FCOHb 0.3 % (0.5-1.5); FMetHb 0.2 % (0.3-1.12); FO2Hb 84.6 % (94-100); PATIENT TEMPERATURE 35.6; PEEP 10 cm H2O; TOTAL HEMOGLOBIN 10.4 G/dl (14.0-17.9)
[2019-11-19] MEDS: ipratropium/albuterol 3ml nebule NEB SCH ×4 (02:58→21:53)
[2019-11-19] MEDS: dextrose 5%-water 1,000 ML IV SCH (03:16)
--- NOTE | 2019-11-19 07:13 | NUR ---
Patient in room ICU 2039. I have received report from Stephanie MAGAÑA and had the opportunity to ask questions and assume patient care. Addendum: 11/19/19 at 0713 by Kate Cohen RN Amended: Links added.
[2019-11-19] MEDS: pantoprazole 40 MG vial IV SCH (07:58)
[2019-11-19] MEDS: mineral oil/petrolatum, white cream 113gm jar TP SCH ×2 (07:58→19:22)
[2019-11-19] MEDS: MULTIVIT-MIN/FERROUS GLUCONATE 9 MG/15 ML LIQUID OGT SCH (07:59)
[2019-11-19] MEDS: lactulose 20gm/30ml cup OGT SCH (07:59)
[2019-11-19] MEDS: docusate sodium 100mg/10ml UD cup OGT SCH ×2 (07:59→20:29)
[2019-11-19] MEDS: amantadine 100mg/10ml UD oral solution OGT SCH ×2 (07:59→22:27)
[2019-11-19] MEDS: lactose-reduced food (Ensure Enlive) - 237ml bottle OGT SCH ×3 (08:00→18:00)
[2019-11-19] MEDS: aspirin 81mg tab.chew OGT SCH (08:00)
[2019-11-19] MEDS: carbidoba-levodopa 25-100mg tablet OGT SCH ×3 (08:00→20:28)
[2019-11-19] MEDS: K, MAG and/or Phos replacement - Verify level? MC SCH (08:00)
[2019-11-19] MEDS: folic acid 1mg tablet OGT SCH (08:00)
[2019-11-19] MEDS: lactobacillus rhamnosus 10,000 MMU CELLS/CAPSULE OGT SCH ×2 (08:00→20:28)
[2019-11-19] MEDS: digoxin 250mcg/ml 2ml ampule IV SCH (08:00)
[2019-11-19] MEDS: busPIRone 5mg tablet OGT SCH ×2 (08:00→20:29)
[2019-11-19] MEDS ORDERED: bisacodyl 10mg suppository rectal RC STA (09:26)
--- NOTE | 2019-11-19 12:17 | NUR ---
TPN/Dannie Consults: Pt remains intubated for ARDS TF stopped r/t GRV 400-600 last night/early AM 11/17 followed by OG suction additional 400ml what appeared to be stool vs bloody gastric contents per RN today. TPN to start via central line today per records analysis manager. Unable to meet pt protein needs without DEX overloading given high DEX concentration formula, pt underweight status, and T2DM hx. LBM 11/10 receiving relistor, reglan, colace, lactulose, and miralax. No GI imaging at this time; RD d/w RN regarding IF records analysis manager would be agreeable given constipation 8 days. OG remains to suction. Dannie 8; no edema/wounds. Will monitor for TPN tolerance; higher risk for refeeding given underweight status and recent fluctuating PO prior to intubation. Will monitor for TPN tolerance. Recommendations: 1) TPN via central line per MD using Clinimix E /20 at 63ml/hr goal w/ separate 204ml 20% intralipid infusions to run at 17ml/hr for 12 hours daily. To provide; 1512ml fluid, 76g AA, 302g DEX(3.98mg/kg/min), 1437 total non-protein kcals, and 1741 total kcals. 2) monitor for signs of refeeding syndrome 3) Daily weights, prealbumin q wednesday and 4) routine bowel care; opioid antagonist and promotility per records analysis manager 5) When extubated, advance diet as medically indicated following CONTINUITY DIRECTOR BSS 6) Consider post-pyloric EN if bowel function returns/no GIB for optimal nutrition delivery and tolerance Addendum: 11/19/19 at [address] Amended: Links added.
[2019-11-19 14:54] LABS: PREALBUMIN 14.2 MG/DL (19-36); TRIGLYCERIDES 67 MG/DL (20-135)
[2019-11-19] MEDS ORDERED: CALCIUM IV SCH (15:00)
[2019-11-19] MEDS ORDERED: TRACE ELEMENT IV SCH (15:00)
[2019-11-19] MEDS ORDERED: [UNRECOGNIZED DRUG - OTHER] IV SCH (15:00)
[2019-11-19] MEDS ORDERED: LYTES IV SCH (15:00)
[2019-11-19] MEDS ORDERED: DEXT IV SCH (15:00)
[2019-11-19] MEDS: FENTANYL-0.9 % NACL/PF 100 ML IV PRN (15:20)
--- NOTE | 2019-11-19 17:42 | NUR ---
Pt. has been having bloody oral and ETT secretions this shift. TPN infusing in CVL since 1500 today. KUB done today. Dulcolax supp. administered, along with Colace, Lactulose, and Reglan. No BM noted.
[2019-11-19] MEDS ORDERED: fat emulsion IV bag 250 ML IV SCH (20:00)
[2019-11-19] MEDS: polyethylene glycol 3350 17gm powd pack OGT SCH (20:31)
[2019-11-19] MEDS: insulin glargine (Lantus) pen - multi-dose SQ SCH (20:34)
[2019-11-19 23:05] LABS: BASOPHILS % (AUTO) 0 % (0-1); EOSINOPHILS # (AUTO) 0.4 X10'3 (0-0.9); EOSINOPHILS % (AUTO) 3.5 % (0-6); HEMATOCRIT 29.7 % (42.0-52.0); HEMOGLOBIN 9.8 g/dl (14.0-17.9); LYMPHOCYTES # (AUTO) 0.7 X10'3 (1.1-4.8); LYMPHOCYTES % (AUTO) 5.5 % (21-51); MEAN CORPUSCULAR HGB CONC 32.9 g/dL (33.0-36.5); MEAN CORPUSCULAR VOLUME 91.3 FL (78-98); MEAN PLATELET VOLUME 9.8 FL (7.4-10.4); MONOCYTES # (AUTO) 0.7 X10'3 (0-0.9); NEUTROPHILS # (AUTO) 10.2 X10'3 (1.8-7.7); PLATELET COUNT 287 X10'3 (140-440); RED BLOOD COUNT 3.25 X10'6 (4.70-6.10); RED CELL DISTRIBUTION WIDTH 15.1 % (11.5-14.5)
[2019-11-19 23:21] LABS: ALANINE AMINOTRANSFERASE 8 U/L (12-78); ALBUMIN 1.8 G/DL (3.4-5.0); ALBUMIN/GLOBULIN RATIO 0.5 (1.1-1.5); ALKALINE PHOSPHATASE 102 IU/L (46-116); ANION GAP 3 (8-16); ASPARTATE AMINO TRANSFERASE 34 U/L (10-37); BILIRUBIN,TOTAL 1.4 MG/DL (0.1-1.0); BLOOD UREA NITROGEN 16 MG/DL (7-18); BUN/CREATININE RATIO 21.6 (5.4-32.0); CHLORIDE 107 MMOL/L (99-107); CREATININE 0.74 MG/DL (0.60-1.10); GLUCOSE 165 MG/DL (70-104); MAGNESIUM 2.1 MG/DL (1.5-2.4); PHOSPHORUS 2.4 MG/DL (2.3-4.5); POTASSIUM 3.5 MMOL/L (3.5-5.1); SODIUM 140 MMOL/L (135-145); TOTAL CARBON DIOXIDE 29.6 MMOL/L (24-32); TOTAL PROTEIN 5.5 G/DL (6.4-8.2); eGFR > 90 ML/MIN
[2019-11-20] VITALS (20 sets, daily range): BP systolic 113–143; BP diastolic 39–52
[2019-11-20] MEDS: pregabalin 25mg capsule OGT SCH ×2 (00:10→07:26)
[2019-11-20] MEDS: piperacillin/tazo 4.5gm/100ml 100 ML IV SCH ×2 (00:10→07:43)
[2019-11-20] MEDS: midazolam 100mg in NS 100 ML INFUSION IV PRN ×3 (00:19→09:57)
[2019-11-20] MEDS: mineral oil/petrolatum ophthal oint EACHEYE SCH ×2 (02:26→07:27)
[2019-11-20] MEDS: metoclopramide 5 mg/ml inj IV SCH ×2 (02:26→07:27)
[2019-11-20] MEDS: ipratropium/albuterol 3ml nebule NEB SCH ×2 (02:47→09:16)
[2019-11-20 03:06] LABS: ABG BASE EXCESS 5.2 mmol/L (-2.0-3.0); ABG HCO3 31.1 mmol/L (22.0-26.0); ABG OXYGEN SATURATION 92.8 % (95-98); ABG PCO2 (T) 50.9 mmHg (35.0-45.0); ABG PO2 (T) 63.8 mmHg (83-108); FCOHb 0.3 % (0.5-1.5); FMetHb 0.3 % (0.3-1.12); FO2Hb 92.2 % (94-100); PATIENT TEMPERATURE 36.3; PEEP 14 cm H2O; RESPIRATORY RATE 20 b/min; TOTAL HEMOGLOBIN 10.4 G/dl (14.0-17.9)
[2019-11-20] MEDS: FENTANYL-0.9 % NACL/PF 100 ML IV PRN (04:23)
[2019-11-20 05:07] LABS: PARTIAL THROMBOPLASTIN TIME 31 SECONDS (22-32)
[2019-11-20 05:09] LABS: ALANINE AMINOTRANSFERASE 14 U/L (12-78); ALBUMIN 1.7 G/DL (3.4-5.0); ALBUMIN/GLOBULIN RATIO 0.5 (1.1-1.5); ALKALINE PHOSPHATASE 97 IU/L (46-116); ANION GAP 2 (8-16); ASPARTATE AMINO TRANSFERASE 26 U/L (10-37); BILIRUBIN,TOTAL 1.2 MG/DL (0.1-1.0); BLOOD UREA NITROGEN 15 MG/DL (7-18); BUN/CREATININE RATIO 20.8 (5.4-32.0); CALCIUM 7.8 MG/DL (8.5-10.1); CHLORIDE 108 MMOL/L (99-107); CREATININE 0.72 MG/DL (0.60-1.10); GLUCOSE 173 MG/DL (70-104); PHOSPHORUS 2.4 MG/DL (2.3-4.5); POTASSIUM 3.4 MMOL/L (3.5-5.1); SODIUM 141 MMOL/L (135-145); TOTAL CARBON DIOXIDE 30.8 MMOL/L (24-32); TOTAL PROTEIN 5.3 G/DL (6.4-8.2); eGFR > 90 ML/MIN
[2019-11-20 05:12] LABS: BASOPHILS % (AUTO) 0.1 % (0-1); EOSINOPHILS # (AUTO) 0.5 X10'3 (0-0.9); EOSINOPHILS % (AUTO) 4.1 % (0-6); HEMATOCRIT 28.9 % (42.0-52.0); HEMOGLOBIN 9.4 g/dl (14.0-17.9); LYMPHOCYTES # (AUTO) 0.8 X10'3 (1.1-4.8); LYMPHOCYTES % (AUTO) 6.6 % (21-51); MEAN CORPUSCULAR HEMOGLOBIN 29.6 PG (27.0-31.0); MEAN CORPUSCULAR HGB CONC 32.5 g/dL (33.0-36.5); MEAN PLATELET VOLUME 10.1 FL (7.4-10.4); MONOCYTES # (AUTO) 0.7 X10'3 (0-0.9); MONOCYTES % (AUTO) 6.2 % (2-12); NEUTROPHILS # (AUTO) 9.5 X10'3 (1.8-7.7); PLATELET COUNT 275 X10'3 (140-440); RED BLOOD COUNT 3.17 X10'6 (4.70-6.10); RED CELL DISTRIBUTION WIDTH 15.3 % (11.5-14.5); WHITE BLOOD COUNT 11.5 X10'3 (4.5-11.0)
[2019-11-20] MEDS: potassium Cl 20mEq/100mL bag 100 ML IV PRN ×2 (05:29→07:15)
--- NOTE | 2019-11-20 06:42 | NUR ---
Patient in room ICU 2039. I have received report from Stephanie MAGAÑA and had the opportunity to ask questions and assume patient care.
[2019-11-20] MEDS: busPIRone 5mg tablet OGT SCH (07:26)
[2019-11-20] MEDS: pantoprazole 40 MG vial IV SCH (07:27)
[2019-11-20] MEDS: folic acid 1mg tablet OGT SCH (07:27)
[2019-11-20] MEDS: amantadine 100mg/10ml UD oral solution OGT SCH (07:27)
[2019-11-20] MEDS: docusate sodium 100mg/10ml UD cup OGT SCH (07:27)
[2019-11-20] MEDS: lactobacillus rhamnosus 10,000 MMU CELLS/CAPSULE OGT SCH (07:27)
[2019-11-20] MEDS: carbidoba-levodopa 25-100mg tablet OGT SCH (07:27)
[2019-11-20] MEDS: lactulose 20gm/30ml cup OGT SCH (07:27)
[2019-11-20] MEDS: methylnaltrexone br 12mg/0.6ml inj***SubQ only SQ SCH (07:27)
[2019-11-20] MEDS: mineral oil/petrolatum, white cream 113gm jar TP SCH (07:27)
[2019-11-20] MEDS: aspirin 81mg tab.chew OGT SCH (07:34)
[2019-11-20] MEDS: K, MAG and/or Phos replacement - Verify level? MC SCH (08:00)
[2019-11-20] MEDS: digoxin 250mcg/ml 2ml ampule IV SCH (08:00)
[2019-11-20] MEDS: lactose-reduced food (Ensure Enlive) - 237ml bottle OGT SCH (08:00)
[2019-11-20] MEDS ORDERED: MVI, adult No.4 with vit. K 10 ML in dextrose 5% water 500ml 500 ML IV SCH ×2 (10:00)
--- NOTE | 2019-11-20 10:37 | NUR ---
Spoke with pt's brother Hood and gave update on pt's worsening condition. Concepcion social media community manager here to talk with brother as well. Hood stated he wants pt. to be changed to comfort care and to be notified when pt. passes. Call transferred to Dr. Stone.
--- NOTE | 2019-11-20 10:45 | NUR ---
Dr. Stone in to see pt.
--- NOTE | 2019-11-20 12:00 | NUR ---
assumed pt care, extubated to comfort care
--- NOTE | 2019-11-20 12:39 | NUR ---
Extubated pt. at 1200.
[2019-11-20] MEDS ORDERED: morphine 4 MG/ML inj SYRINge ONE (12:42)
--- NOTE | 2019-11-20 12:51 | NUR ---
Pt. with agonal/gasping resps. Charge nurse notified. 4mg Morphine overrode for air hunger per charge nurse's permission.
--- NOTE | 2019-11-20 12:55 | NUR ---
Problems reprioritized. Patient report given, questions answered & plan of care reviewed with charge nurse.
[2019-11-20] MEDS ORDERED: DEXT IV SCH (13:00)
[2019-11-20] MEDS ORDERED: [UNRECOGNIZED DRUG - OTHER] IV SCH (13:00)
[2019-11-20] MEDS ORDERED: CALCIUM IV SCH (13:00)
[2019-11-20] MEDS ORDERED: LYTES IV SCH (13:00)
[2019-11-20] MEDS ORDERED: TRACE ELEMENT IV SCH (13:00)
--- NOTE | 2019-11-20 18:05 | NUR ---
report to Esme MAGAÑA
--- NOTE | 2019-11-20 21:00 | NUR ---
Received report from veena. Patient transferred from ICU. Patient is DNR and cmfort care. VSS 113/41, 98.1, 63, 14, 02 sat at 69 % RA. Patient with shallow breathing. Patient is alert to name, patient tracks but non-verbal. Floated heels. Kept comfortable.
[2019-11-21] MEDS ORDERED: morphine 10mg/0.5ml (conc. morphine) oral syringe PO PRN (00:45)
[2019-11-21] MEDS ORDERED: hyoscyamine 0.125mg TAB.SUBL SL PRN (00:45)
[2019-11-21] MEDS ORDERED: LORazepam 2 mg/ml vial IV PRN (00:45)
--- NOTE | 2019-11-21 05:16 | NUR ---
RN IS TO DOCUMENT YES TO ALL APPLICABLE AREAS Pronouncement of : 443 1. Time Physician Notified: Dr. Brown 2. Date of :11/20 3. Time of : 435 4. DNR/Withdraw life support documented: Yes 5. Monitor strip has been placed on chart: Yes 6. Assessment process is of one-minute duration and includes following criteria: a) Patient is unresponsive to all stimuli: Yes b) Pupils fixed and non-reactive: Yes c) Auscultation of precordium reveals absence of heart tones: Yes d) Auscultation of lungs reveals absence of breath sounds: Yes e) Absence of blood pressure / all vital signs: Yes f) QRS complexes are not present on monitor / EKG strip: Yes g) Pacer spikes without capture: Yes 4. Comments: Patient's brother Hood [phone] notified. Got a verbal ok to release remains and belongings to [facility] in [place], [place].
--- NOTE | 2019-11-21 06:40 | NUR ---
Problems reprioritized. Patient report given, questions answered & plan of care reviewed with Mary MAGAÑA.
--- NOTE | 2019-11-21 07:08 | NUR ---
Patient in room [facility] 350A. I have received report from ARCHANA Barrow and had the opportunity to ask questions and assume patient care.
== END 2019-11-21 09:08 | disposition expired | DRG 70 ==
LOC: ER 17:15 → ED HOLD 20:58 → SUR 3N 21:45 → PCU 3S 10-21 14:22 → SUR 3N 11-08 11:31 → PCU 3S 11-13 20:00 → ICU 2S 11-16 17:21 → SUR 3N 11-20 20:50
PROVIDERS: ADMIT Family Medicine; ATTEND Internal Medicine Critical Care Medicine
PROC: B32T1ZZ Computerized Tomography (CT Scan) of Left Pulmonary Artery using Low Osmolar Contrast (ICD-10-PCS; 2019-10-24)
PROC: B3201ZZ Computerized Tomography (CT Scan) of Thoracic Aorta using Low Osmolar Contrast (ICD-10-PCS; 2019-10-24)
PROC: B32S1ZZ Computerized Tomography (CT Scan) of Right Pulmonary Artery using Low Osmolar Contrast (ICD-10-PCS; 2019-10-24)
PROC: 5A09357 Assistance with Respiratory Ventilation, Less than 24 Consecutive Hours, Continuous Positive Airway Pressure (ICD-10-PCS; 2019-11-13)
PROC: 5A09357 Assistance with Respiratory Ventilation, Less than 24 Consecutive Hours, Continuous Positive Airway Pressure (ICD-10-PCS; 2019-11-14)
PROC: 5A09457 Assistance with Respiratory Ventilation, 24-96 Consecutive Hours, Continuous Positive Airway Pressure (ICD-10-PCS; 2019-11-15)
PROC: 5A1945Z Respiratory Ventilation, 24-96 Consecutive Hours (ICD-10-PCS; principal; 2019-11-16)
PROC: 0BH17EZ Insertion of Endotracheal Airway into Trachea, Via Natural or Artificial Opening (ICD-10-PCS; 2019-11-16)
PROC: 30233N1 Transfusion of Nonautologous Red Blood Cells into Peripheral Vein, Percutaneous Approach (ICD-10-PCS; 2019-11-16)
DX: G93.41 Metabolic encephalopathy (principal); J96.01 Acute respiratory failure with hypoxia; E43 Unspecified severe protein-calorie malnutrition; J69.0 Pneumonitis due to inhalation of food and vomit; E87.0 Hyperosmolality and hypernatremia; L03.115 Cellulitis of right lower limb; I48.20 Chronic atrial fibrillation, unspecified; R04.2 Hemoptysis; R44.3 Hallucinations, unspecified; Z68.1 Body mass index [BMI] 19.9 or less, adult; E86.0 Dehydration; G20 Parkinson's disease; E87.6 Hypokalemia; I95.1 Orthostatic hypotension; E11.9 Type 2 diabetes mellitus without complications; F02.80 Dementia in other diseases classified elsewhere, unspecified severity, without behavioral disturbance, psychotic disturbance, mood disturbance, and anxiety; I10 Essential (primary) hypertension; J44.9 Chronic obstructive pulmonary disease, unspecified; K59.00 Constipation, unspecified; M81.0 Age-related osteoporosis without current pathological fracture; R29.6 Repeated falls; R63.3 Feeding difficulties; E83.42 Hypomagnesemia; F32.9 Major depressive disorder, single episode, unspecified; F41.9 Anxiety disorder, unspecified; K21.9 Gastro-esophageal reflux disease without esophagitis; M79.642 Pain in left hand; R00.1 Bradycardia, unspecified; R30.0 Dysuria; Z82.49 Family history of ischemic heart disease and other diseases of the circulatory system; Z90.49 Acquired absence of other specified parts of digestive tract; Z79.899 Other long term (current) drug therapy; Z87.891 Personal history of nicotine dependence
CPT/HCPCS: 36415; 36430; 36600; 70450; 71045; 71275; 73120; 74018; 74177; 80048; 80053; 80162; 80305; 81001; 82550; 82803; 82810; 82948; 83036; 83605; 83735; 83880; 84100; 84132; 84134; 84145; 84443; 84478; 84484; 85018; 85025; 85027; 85610; 85730; 86885; 86900; 86901; 86920; 87040; 87070; 87081; 92508; 92616; 93005; 93306; 93925; 93970; 94002; 94003; 94640; 94660; 94760; 96360; 97110; 97116; 97161; 97530; 97535; 99285; C9113; G0378; J1160; J1644; J1650; J1815; J2060; J2212; J2250; J2270; J2543; J2765; J2930; J3010; J3475; J3480; J3490; J7030; J7040; J7060; J7070; P9016; Q9967